=== PATIENT | male | born 1980 | race Caucasian/White ===

== ENCOUNTER 2017-01-13 02:38 | Emergency (ER) | payer OTHER, MEDICARE, MEDICAID ==
[~2017-01-13] VITALS: Ht 172.7 cm; Wt 68.0 kg
[~2017-01-13 02:38] MED LIST: BPR100T GT; CYCL10TA9 PO; IBUP800T26 PO
--- NOTE | 2017-01-13 02:59 | ED Back Pain ---
General Chief Complaint: Back Problems Stated Complaint: BACK PAIN Nursing Triage Note: LOWER BACK PAIN, NO NEW INJURY. 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 Other Comments PCP: DR. RODRÍGUEZ Allergies and Home Medications Allergies Coded Allergies: No Known Drug Allergies (Unverified , 04/03/10) Home Medications Bupropion Hcl 100 Mg Tab, 100 MG GT, (Reported) Cyclobenzaprine HCl 10 Mg Tablet, 10 MG PO Q8H, #15 Prescribed by: ALLYSON BARBOSA on 01/13/17 0300 Cyclobenzaprine Hcl 10 Mg Tablet, 1 EACH PO Q8H PRN for SPASMS, #14 Prescribed by: AASHISH OTTO on 12/25/14 0706 Ibuprofen 800 Mg Tablet, 800 MG PO q8h PRN for PAIN, #30 Ref 0 Prescribed by: AASHISH OTTO on 12/25/14 0706 Naproxen 500 Mg Tablet, 500 MG PO BID, #20 Prescribed by: ALLYSON BARBOSA on 01/13/17 0300 Constitutional: no symptoms reported Musculoskeletal: see HPI, back pain Skin: no symptoms reported Psychiatric/Neurological: No Symptoms Reported Past Basjbfn-Vqhnyd-Powgym Hx Patient Social History Alcohol Use: Occasionally Uses Recreational Drug Use: No Smoking Status: Never a Smoker 2nd Hand Smoke Exposure: No Recent Foreign Travel: No Contact w/Someone Who Travel: No Recent Infectious Disease Expo: No Recent Hopitalizations: No Immunizations Up To Date Tetanus Booster (TDap): Unknown PED Vaccines UTD: Yes Seasonal Allergies Seasonal Allergies: No Surgeries HX Surgeries: Yes (PENIS SURGERY A CHILD) Respiratory Hx Respiratory Disorders: No Cardiovascular Hx Cardiac Disorders: Yes (MURMUR A CHILD) Neurological Hx Neurological Disorders: No Genitourinary Hx Genitourinary Disorders: No Gastrointestinal Hx Gastrointestinal Disorders: No Musculoskeletal Hx Musculoskeletal Disorders: Yes Musculoskeletal Disorders: Chronic Back Pain Endocrine Hx Endocrine Disorders: No HEENT HX ENT Disorders: No Cancer Hx Cancer: No Psychosocial Hx 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 PT ABLE TO TWIST AT WAIST WITHOUT DIFFICULTY ) Neck: Full Range of Motion, Normal Inspection, Non Tender, Supple Cardiovascular: Regular Rate, Rhythm, No Edema, No JVD, No Murmur, Normal Peripheral Pulses Respiratory: Normal Breath Sounds Peripheral Pulses: 2+ Dorsalis Pedis (R), 2+ Left Dors-Pedis (L) Gastrointestinal: Non Tender, Soft Back: Other (DIFFUSE LUMBAR TENDERNESS--MILD, WITH MILD MUSCLE SPASMS. DTR'S INTACT. NEGATIVE STRAIGHT LEG RAISING BILATERALLY) Extremity: Normal Range of Motion, Non Tender, No Calf Tenderness, No Pedal Edema Neurologic/Psychiatric: Alert, Oriented x3, No Motor/Sensory Deficits, Normal Mood/Affect, gum machine filler II-XII Norm as Tested Skin: Normal Color, Warm/Dry Progress/Results/Core Measures Results/Orders My Orders Orders - ALLYSON BARBOSA DO Ketorolac Injection (Toradol Injection) (01/13/17 03:00) Orphenadrine Injection (Norflex Injectio (01/13/17 03:00) Diphenhydramine Injection (Benadryl Inje (01/13/17 03:00) Medications Given in ED Current Medications Medications Dose Ordered Sig/Ric Route Start Time Stop Time Status Last Admin Dose Admin Diphenhydramine HCl 50 mg ONCE ONCE IM 01/13/17 03:00 01/13/17 03:02 DC 01/13/17 02:53 50 MG Ketorolac Tromethamine 60 mg ONCE ONCE IM 01/13/17 03:00 01/13/17 03:02 DC 01/13/17 02:53 60 MG Orphenadrine Citrate 60 mg ONCE ONCE IM 01/13/17 03:00 01/13/17 03:02 DC 01/13/17 02:53 60 MG Vital Signs/I&O Vital Sign - Last 12Hours 01/13/17 02:43 Temp 97.7 Pulse 84 Resp 16 B/P (MAP) 156/94 Pulse Ox 95 O2 Delivery Room Air Blood Pressure Mean: 114 Progress Note : Progress Note PAIN BEGINNING TO EASE AT DISMISSAL PT RESIDES AT [place] AND 2 [employer] ARE HERE WITH PT MULTIPLE ATTEMPTS WITH DIFFERENT NUMBERS, TO CONTACT THE [facility] WERE UNSUCCESSFUL, IN ORDER TO DETERMINE IF THIS WOULD BE FILED UNDER WORKMAN'S COMP. PT WAS ALSO UNABLE TO CONTACT ANY ONE AT THE [facility], AND NO ONE FROM THE [facility] CALLED ABOUT PT. Departure Impression Impression: Primary Impression: Low back strain Disposition: HOME, SELF-CARE Condition: Stable Departure-Patient Inst. Referrals: JONO RODRÍGUEZ MD (PCP/Family) Primary Care Physician Patient Instructions: Lumbar Muscle Strain (DC) Add. Discharge Instructions: MOIST HEAT TO AREA AT 20 MINUTE INTERVALS FOLLOW UP WITH OCCUPATIONAL HEALTH/ WORKMAN'S COMP OR DR. RODRÍGUEZ ON SATURDAY FOR FURTHER CARE All discharge instructions reviewed with patient and/or family. Voiced understanding. Scripts Naproxen (Naproxen) 500 Mg Tablet 500 MG PO BID, #20 TAB Prov: ALLYSON BARBOSA DO 01/13/17 Cyclobenzaprine HCl (Cyclobenzaprine HCl) 10 Mg Tablet 10 MG PO Q8H, #15 TAB Prov: ALLYSON BARBOSA DO 01/13/17 Work/School Note: Work Release Form Date Seen in the Emergency Department: Jan 13, 2017 Restrictions: Need Release from Doctor, Follow Up With [facility] ALLYSON BARBOSA DO Jan 13, 2017 02:59
[2017-01-13] MEDS ORDERED: KETOROLAC 60 MG/2 ML VIAL IM ONE (03:00)
[2017-01-13] MEDS ORDERED: NAPR500T3 PO (03:00)
[2017-01-13] MEDS ORDERED: CYCL10TA9 PO (03:00)
[2017-01-13] MEDS ORDERED: ORPHENADRINE 60 MG/2 ML (NORFLEX) AMP IM ONE (03:00)
[2017-01-13] MEDS ORDERED: diphenhydrAMINE 50 MG/ML INJ (BENADRYL) IM ONE (03:00)
[2017-01-13 03:39] VITALS: BP 156/94
--- OUTSIDE RECORDS SUMMARY | 2017-01-14 18:00 | XMS REPORT ---
Author Author CHANELL RODRIGUEZ Organization [employer] Address Unknown Phone Unavailable Care Team Providers Care Airline Mechanic Name Role Phone CHANELL RODRIGUEZ CP Unavailable Allergies, Adverse Reactions, Alerts Substance Reaction Event Type N.K.D.A. 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 Medications Medication Code System Code Instructions Start Date End Date Status Dosage Omeprazole [facility] [address]-43 20 mg Jun 08, 2014 1 Capsule by Oral route 1 time per day 1 hr prior to 1st meal, for GERD Lisinopril NDC [address]-67 10 mg Jun 08, 2014 1 Tablet by Oral route 1 time per day for HTN Budeprion XL NDC 0 150 mg 1 ERT orally once a day Jun 08, 2014 1 tablet 1 time per day upon rising in AM for depression [place] [address]-24 2 % February 02, 2014 apply to right knee rash twice daily until resolved Procedures Procedure Coding System Code Date PROPHYLAXIS - ADULT CPT-4 D1110 May 16, 2015 Vital Signs Date/Time: May 16, 2015 Blood Pressure Diastolic 70 mmHg Blood Pressure Systolic 120 mmHg Cardiac Monitoring Heart Rate 61 bpm Results No Known Results Summary Purpose [employer] Submission
--- OUTSIDE RECORDS SUMMARY | 2017-01-14 18:00 | XMS REPORT ---
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
--- OUTSIDE RECORDS SUMMARY | 2017-01-14 18:00 | XMS REPORT ---
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
--- OUTSIDE RECORDS SUMMARY | 2017-01-14 18:00 | XMS REPORT ---
Author Author AKIN BURROUGHS Organization [employer] Address Unknown Phone Unavailable Care Team Providers Care Solar Installation Supervisor Name Role Phone AKIN BURROUGHS CP Unavailable Allergies, Adverse Reactions, Alerts Substance Reaction Event Type N.K.D.A. 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
--- OUTSIDE RECORDS SUMMARY | 2017-01-14 18:00 | XMS REPORT ---
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 Medications No Known Medications Procedures Procedure Coding System Code Date INTRAORL-PERIAPICAL 1 FILM 50880 CPT-4 D0220 January 26, 2016 INTRAORL-PERIAPICAL EA ADD FILM CPT-4 D0230 January 26, 2016 COMP ORAL EVALUATION - NEW/EST PT CPT-4 D0150 January 26, 2016 BITEWINGS - FOUR FILMS CPT-4 D0274 January 26, 2016 INTRAORL-PERIAPICAL EA ADD FILM CPT-4 D0230 January 26, 2016 INTRAORL-PERIAPICAL EA ADD FILM CPT-4 D0230 January 26, 2016 INTRAORL-PERIAPICAL EA ADD FILM CPT-4 D0230 January 26, 2016 INTRAORL-PERIAPICAL EA ADD FILM CPT-4 D0230 January 26, 2016 Results No Known Results Summary Purpose [employer] Submission
--- OUTSIDE RECORDS SUMMARY | 2017-01-14 18:01 | XMS REPORT | Continuity of Care Document ---
Author Author [facility] Address Unknown Phone Unavailable Allergies Active Description Code Type Severity Reaction Onset Reported/Identified Relationship to Patient Clinical Status Yes No Known Drug Allergies [id number] Drug Allergy Unknown N/ A 04/03/2010 Medications Problems Date Dx Coded Attending Type Code Diagnosis Diagnosed By 04/04/2010 Ot 789.00 06/27/2010 311 DEPRESSIVE DISORDER NOS 06/27/2010 314.00 ADHD INATTENTIVE 06/27/2010 311 DEPRESSIVE DISORDER NOS 06/27/2010 314.00 ADHD INATTENTIVE 06/27/2010 311 DEPRESSIVE DISORDER NOS 06/27/2010 314.00 ADHD INATTENTIVE 06/27/2010 311 DEPRESSIVE DISORDER NOS 06/27/2010 314.00 ADHD INATTENTIVE 06/27/2010 311 DEPRESSIVE DISORDER NOS 06/27/2010 314.00 ADHD INATTENTIVE 06/27/2010 311 DEPRESSIVE DISORDER NOS 06/27/2010 314.00 ADHD INATTENTIVE 06/27/2010 311 DEPRESSIVE DISORDER NOS 06/27/2010 314.00 ADHD INATTENTIVE 06/27/2010 311 DEPRESSIVE DISORDER NOS 06/27/2010 314.00 ADHD INATTENTIVE 06/27/2010 ARTUR PHD, REN A 311 DEPRESSIVE DISORDER NOS 06/27/2010 ARTUR PHD, REN A 314.00 ADHD INATTENTIVE 06/27/2010 SERGIO TIAN APRN 311 DEPRESSIVE DISORDER NOS 06/27/2010 SERGIO TIAN APRN 314.00 ADHD INATTENTIVE 06/27/2010 EVELINA ANGUIANO APRN 311 DEPRESSIVE DISORDER NOS 06/27/2010 EVELINA ANGUIANO APRN 314.00 ADHD INATTENTIVE 06/27/2010 EVELINA ANGUIANO APRN 311 DEPRESSIVE DISORDER NOS 06/27/2010 EVELINA ANGUIANO APRN 314.00 ADHD INATTENTIVE 06/27/2010 EVELINA ANGUIANO APRN 311 DEPRESSIVE DISORDER NOS 06/27/2010 EVELINA ANGUIANO APRN 314.00 ADHD INATTENTIVE 06/27/2010 EVELINA ANGUIANO APRN 311 DEPRESSIVE DISORDER NOS 06/27/2010 EVELINA ANGUIANO APRN 314.00 ADHD INATTENTIVE 06/27/2010 311 DEPRESSIVE DISORDER NOS 06/27/2010 314.00 ADHD INATTENTIVE 07/25/2010 314.01 ADHD COMBINED 07/25/2010 314.01 ADHD COMBINED 07/25/2010 314.01 ADHD COMBINED 07/25/2010 314.01 ADHD COMBINED 07/25/2010 314.01 ADHD COMBINED 07/25/2010 314.01 ADHD COMBINED 07/25/2010 314.01 ADHD COMBINED 07/25/2010 314.01 ADHD COMBINED 07/25/2010 ARTUR CARLOS, REN Sanchez 314.01 ADHD COMBINED 07/25/2010 SERGIO TIAN APRN 314.01 ADHD COMBINED 07/25/2010 EVELINA ANGUIANO APRN 314.01 ADHD COMBINED 07/25/2010 EVELINA ANGUIANO APRN 314.01 ADHD COMBINED 07/25/2010 EVELINA ANGUIANO APRN 314.01 ADHD COMBINED 07/25/2010 EVELINA ANGUIANO APRN 314.01 ADHD COMBINED 07/25/2010 314.01 ADHD COMBINED 10/04/2010 309.0 ADJUSTMENT DISORDER WITH DEPRESSED MOOD 10/04/2010 309.0 ADJUSTMENT DISORDER WITH DEPRESSED MOOD 10/04/2010 309.0 ADJUSTMENT DISORDER WITH DEPRESSED MOOD 10/04/2010 309.0 ADJUSTMENT DISORDER WITH DEPRESSED MOOD 10/04/2010 309.0 ADJUSTMENT DISORDER WITH DEPRESSED MOOD 10/04/2010 309.0 ADJUSTMENT DISORDER WITH DEPRESSED MOOD 10/04/2010 309.0 ADJUSTMENT DISORDER WITH DEPRESSED MOOD 10/04/2010 309.0 ADJUSTMENT DISORDER WITH DEPRESSED MOOD 10/04/2010 ARTUR CARLOS, REN Sanchez 309.0 ADJUSTMENT DISORDER WITH DEPRESSED MOOD 10/04/2010 SERGIO TIAN APRN 309.0 ADJUSTMENT DISORDER WITH DEPRESSED MOOD 10/04/2010 EVELINA ANGUIANO APRN 309.0 ADJUSTMENT DISORDER WITH DEPRESSED MOOD 10/04/2010 EVELINA ANGUIANO APRN 309.0 ADJUSTMENT DISORDER WITH DEPRESSED MOOD 10/04/2010 EVELINA ANGUIANO APRN 309.0 ADJUSTMENT DISORDER WITH DEPRESSED MOOD 10/04/2010 EVELINA ANGUIANO APRN 309.0 ADJUSTMENT DISORDER WITH DEPRESSED MOOD 10/04/2010 309.0 ADJUSTMENT DISORDER WITH DEPRESSED MOOD 07/28/2013 SERGIO TIAN APRN 317 MENTAL RETARDATION-MILD 07/28/2013 EVELINA ANGUIANO APRN 317 MENTAL RETARDATION-MILD 07/28/2013 EVELINA ANGUIANO APRN 317 MENTAL RETARDATION-MILD 07/28/2013 EVELINA ANGUIANO APRN 317 MENTAL RETARDATION-MILD 07/28/2013 EVELINA ANGUIANO APRN 317 MENTAL RETARDATION-MILD 03/14/2014 CIERA CERON, SARAH Sanchez Ot 536.8 STOMACH FUNCTION DIS NEC 03/14/2014 SARAH VANG MD Ot 786.50 CHEST PAIN NOS 12/25/2014 AASHISH OTTO MD Ot 723.1 CERVICALGIA 12/25/2014 AASHISH OTTO MD Ot 724.4 LUMBOSACRAL NEURITIS NOS 12/29/2014 ANSELMO FLOREZ RUMA Sanchez Ot 959.7 12/29/2014 ANSELMO FLOREZ RUMA Sanchez Ot E000.8 12/29/2014 ANSELMO FLOREZ RUMA Sanchez Ot E849.0 12/29/2014 ANSELMO FLOREZ RUMA Sanchez Ot E927.0 01/17/2015 ANNE CERON, JONO Lowe Ot 719.06 01/17/2015 ANNE CERON, JONO Lowe Ot 719.46 01/26/2015 ANNE CERON, JONO Lowe Ot 719.06 01/26/2015 ANNE CERON, JONO Lowe Ot 719.46 01/31/2016 ANSELMO FLOREZ RUMA Sanchez Ot 959.7 LOWER LEG INJURY NOS 01/31/2016 RUMA BRIONES DO Ot E000.8 OTHER EXTERNAL CAUSE STATUS 01/31/2016 ANSELMO FLOREZ RUMA Sanchez Ot E849.0 ACCIDENT IN HOME 01/31/2016 ANSELMO FLOREZ RUMA Sanchez Ot E927.0 OVEREXERTION FROM SUDDEN STRENUOUS MOVEM 01/31/2016 ANNE CERON, JONO Lowe Ot 719.06 JOINT EFFUSION-L/LEG 01/31/2016 ANNE CERON, JONO Lowe Ot 719.46 JOINT PAIN-L/LEG 01/31/2016 PRUDENCE TOLENTINO Ot M25.561 PAIN IN RIGHT KNEE 02/20/2016 ANSELMO FLOREZ RUMA Sanchez Ot 959.7 LOWER LEG INJURY NOS 02/20/2016 ANSELMO FLOREZ RUMA Sanchez Ot E000.8 OTHER EXTERNAL CAUSE STATUS 02/20/2016 RUMA BRIONES DO Ot E849.0 ACCIDENT IN HOME 02/20/2016 RUMA BRIONES DO Ot E927.0 OVEREXERTION FROM SUDDEN STRENUOUS MOVEM 02/20/2016 ANNE CERON, JONO L Ot 719.06 JOINT EFFUSION-L/LEG 02/20/2016 ANNE CERON, JONO L Ot 719.46 JOINT PAIN-L/LEG 02/20/2016 PRUDENCE TOLENTINO HONING MACHINE OPERATOR SEMIAUTOMATIC Ot M25.561 PAIN IN RIGHT KNEE 03/09/2016 PRUDENCE TOLENTINO HONING MACHINE OPERATOR SEMIAUTOMATIC Ot M25.561 PAIN IN RIGHT KNEE 03/12/2016 PRUDENCE TOLENTINO HONING MACHINE OPERATOR SEMIAUTOMATIC Ot M25.561 PAIN IN RIGHT KNEE 03/13/2016 PRUDENCE TOLENTINO HONING MACHINE OPERATOR SEMIAUTOMATIC Ot S69.91XA UNSP INJURY OF RIGHT WRIST, HAND AND FIN 03/13/2016 PRUDENCE TOLENTINO HONING MACHINE OPERATOR SEMIAUTOMATIC Ot X58.XXXA EXPOSURE TO OTHER SPECIFIED FACTORS, INI 03/13/2016 PRUDENCE TOLENTINO HONING MACHINE OPERATOR SEMIAUTOMATIC Ot Y93.64 ACTIVITY, BASEBALL 03/13/2016 PRUDENCE TOLENTINO HONING MACHINE OPERATOR SEMIAUTOMATIC Ot Y99.8 OTHER EXTERNAL CAUSE STATUS 03/27/2016 PRUDENCE TOLENTINO HONING MACHINE OPERATOR SEMIAUTOMATIC Ot S69.91XA UNSP INJURY OF RIGHT WRIST, HAND AND FIN 03/27/2016 PRUDENCE TOLENTINO HONING MACHINE OPERATOR SEMIAUTOMATIC Ot X58.XXXA EXPOSURE TO OTHER SPECIFIED FACTORS, INI 03/27/2016 PRUDENCE TOLENTINO HONING MACHINE OPERATOR SEMIAUTOMATIC Ot Y93.64 ACTIVITY, BASEBALL 03/27/2016 PRUDENCE TOLENTINO HONING MACHINE OPERATOR SEMIAUTOMATIC Ot Y99.8 OTHER EXTERNAL CAUSE STATUS 05/05/2016 RUMA BRIONES DO Ot 959.7 LOWER LEG INJURY NOS 05/05/2016 RUMA BRIONES DO Ot E000.8 OTHER EXTERNAL CAUSE STATUS 05/05/2016 RUMA BRIONES DO Ot E849.0 ACCIDENT IN HOME 05/05/2016 RUMA BRIONES DO Ot E927.0 OVEREXERTION FROM SUDDEN STRENUOUS MOVEM 05/05/2016 ANNE CERON, JONO L Ot 719.06 JOINT EFFUSION-L/LEG 05/05/2016 ANNE CERON, JONO L Ot 719.46 JOINT PAIN-L/LEG 05/05/2016 PRUDENCE TOLENTINO HONING MACHINE OPERATOR SEMIAUTOMATIC Ot M25.561 PAIN IN RIGHT KNEE 05/05/2016 PRUDENCE TOLENTINO HONING MACHINE OPERATOR SEMIAUTOMATIC Ot S69.91XA UNSP INJURY OF RIGHT WRIST, HAND AND FIN 05/05/2016 PRUDENCE TOLENTINO HONING MACHINE OPERATOR SEMIAUTOMATIC Ot X58.XXXA EXPOSURE TO OTHER SPECIFIED FACTORS, INI 05/05/2016 PRUDENCE TOLENTINO HONING MACHINE OPERATOR SEMIAUTOMATIC Ot Y93.64 ACTIVITY, BASEBALL 05/05/2016 PRUDENCE TOLENTINO HONING MACHINE OPERATOR SEMIAUTOMATIC Ot Y99.8 OTHER EXTERNAL CAUSE STATUS 05/07/2016 JONO RODRÍGUEZ MD L Ot M25.561 PAIN IN RIGHT KNEE 05/07/2016 JNOO RODRÍGUEZ MD L Ot X58.XXXA EXPOSURE TO OTHER SPECIFIED FACTORS, INI 05/07/2016 JONO RODRÍGUEZ MD L Ot Y93.61 ACTIVITY, ANGOLAN TACKLE FOOTBALL 05/07/2016 JONO RODRÍGUEZ MD L Ot Y99.8 OTHER EXTERNAL CAUSE STATUS 05/09/2016 JONO RODRÍGUEZ MD L Ot M25.561 PAIN IN RIGHT KNEE 05/09/2016 JONO RODRÍGUEZ MD L Ot X58.XXXA EXPOSURE TO OTHER SPECIFIED FACTORS, INI 05/09/2016 JONO RODRÍGUEZ MD L Ot Y93.61 ACTIVITY, ANGOLAN [employer] FOOTBALL 05/09/2016 JONO RODRÍGUEZ MD L Ot Y99.8 OTHER EXTERNAL CAUSE STATUS 05/28/2016 JONO RODRÍGUEZ MD L Ot M25.561 PAIN IN RIGHT KNEE 05/28/2016 JONO RODRÍGUEZ MD L Ot X58.XXXA EXPOSURE TO OTHER SPECIFIED FACTORS, INI 05/28/2016 JONO RODRÍGUEZ MD L Ot Y93.61 ACTIVITY, ANGOLAN TACKLE FOOTBALL 05/28/2016 JONO RODRÍGUEZ MD L Ot Y99.8 OTHER EXTERNAL CAUSE STATUS 06/06/2016 JONO RODRÍGUEZ MD L Ot M25.561 PAIN IN RIGHT KNEE 06/06/2016 JONO RODRÍGUEZ MD L Ot X58.XXXA EXPOSURE TO OTHER SPECIFIED FACTORS, INI 06/06/2016 JONO RODRÍGUEZ MD L Ot Y93.61 ACTIVITY, ANGOLAN TACKLE FOOTBALL 06/06/2016 JONO RODRÍGUEZ MD L Ot Y99.8 OTHER EXTERNAL CAUSE STATUS Procedures Code [place] [address] INDIV PSYTX 45/50 MIN 06/19/2012 55446 PSYTX PT&/FAMILY 45 MINUTES 08/01/2012 22435 PSYTX PT&/FAMILY 45 MINUTES 08/29/2012 56592 PSYTX PT&/FAMILY 45 MINUTES 09/26/2012 77647 PSYTX PT&/FAMILY 45 MINUTES 11/06/2012 06990 PSYTX PT&/FAMILY 45 MINUTES 11/26/2012 66491 PSYTX PT&/FAMILY 45 MINUTES 12/17/2012 57286 PSYTX PT&/FAMILY 45 MINUTES 01/08/2013 89095 PSYTX PT&/FAMILY 45 MINUTES 02/05/2013 Results Encounters ACCT No. Visit Date/Time Discharge Status Pt. Type Provider Facility Loc./Unit Complaint [id number] 09/16/2014 08:32:00 09/16/2014 23: 59:59 CLS Outpatient EVELINA ANGUIANO APRN [id number] 06/08/2014 10:11:00 06/08/2014 23: 59:59 CLS Outpatient EVELINA ANGUIANO APRN [id number] 02/02/2014 08:56:00 02/02/2014 23: 59:59 CLS Outpatient EVELINA ANGUIANO APRN [id number] 02/02/2014 08:56:00 02/02/2014 23: 59:59 CLS Outpatient EVELINA ANGUIANO APRN [id number] 07/28/2013 08:58:00 07/28/2013 23: 59:59 CLS Outpatient SERGIO TIAN APRN [id number] 02/04/2013 12:55:00 02/04/2013 23: 59:59 CLS Outpatient ARTUR CARLOS, REN Sanchez [id number] 09/25/2012 09:40:00 09/25/2012 23: 59:59 CLS Outpatient [id number] 08/28/2012 08:56:00 08/28/2012 23: 59:59 CLS Outpatient [id number] 07/30/2012 09:15:00 07/30/2012 23: 59:59 CLS Outpatient [id number] 06/19/2012 08:50:00 06/19/2012 23: 59:59 CLS Outpatient [id number] 06/19/2012 08:50:00 06/19/2012 23:59 :59 CLS Outpatient [id number] 01/07/2013 09:54:00 Document Registration [id number] 12/16/2012 08:36:00 Document Registration [id number] 11/25/2012 12:53:00 Document Registration [id number] 11/05/2012 09:56:00 Document Registration
== END 2017-01-13 03:40 | disposition home or self-care (01) ==
LOC: EDUNIT# 02:38 → ER 02:40
DX: S39.012A Strain of muscle, fascia and tendon of lower back, initial encounter (principal); F70 Mild intellectual disabilities; F90.9 Attention-deficit hyperactivity disorder, unspecified type; X50.9XXA Other and unspecified overexertion or strenuous movements or postures, initial encounter; Y93.G1 Activity, food preparation and clean up; Y92.59 Other trade areas as the place of occurrence of the external cause; Y99.0 Civilian activity done for income or pay
CPT/HCPCS: 99283

== ENCOUNTER → 2017-07-31 | Outpatient (CLI) | payer MEDICARE, MEDICAID ==
[~2017-07-31] MED LIST changes: +NAPR500T4 PO
--- NOTE | 2017-07-31 14:46 | Diagnostic Imaging Report ---
INDICATION: Right wrist pain. TECHNIQUE: Three views of the right wrist were obtained. FINDINGS: The alignment of the wrist is normal. There is no fracture or dislocation. The soft tissues are unremarkable. IMPRESSION: No acute fracture or dislocation. Dictated by: Dictated on workstation # [id number]
== END ==
LOC: RAD 14:34
PROVIDERS: ATTEND Family Medicine
DX: M25.531 Pain in right wrist (principal)
CPT/HCPCS: 73110

== ENCOUNTER 2018-05-31 00:49 | Emergency (ER) | payer MEDICARE, MEDICAID ==
[~2018-05-31] VITALS: Ht 172.7 cm; Wt 65.8 kg
[~2018-05-31 00:49] MED LIST changes: +NAPR-915 PO; -NAPR500T4 PO
--- OUTSIDE RECORDS SUMMARY | 2018-05-31 00:55 | XMS REPORT ---
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 [id number] ALLERGIES No Known Allergies ENCOUNTERS Encounter Location Date Diagnosis [facility] [id number] [place] [address] [id number] Oct, Encounter for dental exam and cleaning w/o abnormal findings Z01.20 [facility] [id number] [place] [id number] -8531 Sep, Viral illness B34.9 [facility] [id number] [place] [address] [id number] Mar, Encounter for dental examination and cleaning without abnormal findings Z01.20 [facility] [id number] [place] [address] [id number] Dec, Encounter for dental examination and cleaning without abnormal findings Z01.20 [facility] [address] [id number] [id number] Dec, Dental examination Z01.20 [facility] [id number] [place] [address] [id number] Apr, Encounter for dental examination and cleaning without abnormal findings Z01.20 [facility] [address] [id number] [id number] Mar, Dental examination Z01.20 [facility] [address] [id number] [id number] Jan, Dental examination Z01.20 [facility] [id number] [place] [address] [id number] Jan, Encounter for dental examination and cleaning without abnormal findings Z01.20 [facility] [address] [place] [address] [id number] [place] [id number] Apr, Encounter for dental examination Z01.20 [facility] [address] [place] [address] [id number] [place] [id number] Mar, Dental examination V72.2 [facility] [address] [id number] [place] [id number] Feb, Dental examination V72.2 [facility] [address] [id number] [place] [id number] Jan, Dental examination V72.2 [facility] [address] [id number] [place] [id number] Dec, Dental examination V72.2 [facility] [place] [facility] [address] [id number] [place] [address] Oct, [facility] [address] [id number] [place] [address] 1783 Oct, [facility] [address] [id number] [place] [address] 29[address] Sep, [facility] [address] [facility] [id number] [place] [address] Sep, [facility] [address] [id number] [place] [address] 59[address] Aug, [facility] [address] [id number] [place] [address] 1776 Aug, [facility] [address] [id number] [place] [address] May, [facility] [address] [id number] [place] [address] 2496 May, [facility] [address] [facility] [id number] [place] [address] 25[address] May, [facility] [address] [id number] [place] [address] 74[address] May, [facility] [place] [facility] [address] [id number] [place] [address] 00[address] Apr, [facility] [place] [facility] [address] [id number] [place] [address]- 6826 14 Apr, 2014 [facility] [place] [facility] [address] [id number] [place] [address]- 4928 Jan, [facility] [place] [facility] [address] [id number] [place] [address]- 9313 Jan, [facility] [place] [facility] [address] [id number] [place] [address]- 2096 Jan, [facility] [place] [facility] [address] [id number] [place] [address]- 4543 Jan, [facility] [place] [facility] [address] [id number] [place] [address]- 5857 Jul, [facility] [place] [facility] [address] [id number] [place] [address] 8920 Jul, [facility] [place] [facility] [address] [id number] [place] [address]- 7829 May, [facility] [place] [facility] [address] [id number] [place] [address]- 0946 May, [facility] [place] [facility] [address] [id number] [place] [address]- 3666 Feb, [facility] [place] [facility] [address] [id number] [place] [address]- 3309 Jan, [facility] [place] [facility] [address] [id number] [place] [address]- 2413 Dec, [facility] [place] [facility] [address] [id number] [place] [address]- 5836 November, [facility] [place] [facility] [address] [id number] [place] [address]- 1548 November, [facility] [place] [facility] [address] [id number] [place] [address]- 1844 07 Nov, 2012 [facility] [place] [facility] [address] [id number] [place] [address]- 1349 Oct, [facility] [place] [facility] [address] [id number] [place] [address]- 0723 16 Oct, 2012 [facility] [place] [facility] [address] [id number] [place] [address]- 4004 Sep, [facility] [place] [facility] [address] [id number] [place] [address]- 1851 Aug, [facility] [place] [facility] [address] [id number] [place] [address]- 2105 Jul, [facility] [place] [facility] [address] [id number] [place] [address]- 2188 May, [facility] [place] [facility] [address] [id number] [place] [address]- 7981 May, [facility] [place] [facility] [address] [id number] [place] [address]- 0874 May, [facility] [place] [facility] [address] [id number] [place] [address]- 1336 May, [facility] [place] [facility] [address] [id number] [place] [address]- 8736 Apr, [facility] [place] [facility] [address] [id number] [place] [address]- 0605 Apr, [facility] [place] [facility] [address] [id number] [place] [address] Apr, [facility] [place] [facility] [address] [id number] [place] [address]- 5644 Apr, [facility] [place] [facility] [address] [id number] [place] [address]- 7850 Apr, [facility] [place] [facility] [address] [id number] [place] [address]- 3346 Mar, [facility] [address] [id number] [place] [address]- 2880 Feb, [facility] [place] [facility] [address] [id number] [place] [address]- 2866 Jan, [facility] [place] [facility] [address] [id number] [place] [address]- 6502 Dec, [facility] [place] [facility] [address] [id number] [place] [address]- 1654 Dec, [facility] [place] [facility] [address] [id number] [place] [address]- 1154 November, [facility] [place] [facility] [address] [id number] [place] [address]- 1356 November, [facility] [place] [facility] [address] [id number] [place] [address] Oct, [facility] [place] [facility] [address] [id number] [place] [address]- 1644 16 Oct, 2011 [facility] [place] [facility] [address] [id number] [place] [address]- 8999 Oct, [facility] [place] [facility] [address] [id number] [place] [address]- 6182 Sep, [facility] [place] [facility] [address] [id number] [place] [address]- 9448 Sep, [facility] [place] [facility] [address] [id number] [place] [address]- 4681 Aug, [facility] [place] [facility] [address] [id number] [place] [address]- 3618 Jul, [facility] [place] [facility] [address] [id number] [place] [address]- 4969 Jul, [facility] [place] [facility] [address] [id number] [place] [address]- 4296 May, [facility] [place] [facility] [address] [facility] [id number] [place] [address]- 0783 May, [facility] [address] [facility] [id number] [place] [address] 8043 Apr, IMMUNIZATIONS No Known Immunizations SOCIAL HISTORY Never Assessed REASON FOR VISIT ADULT OUTREACH [facility] PLAN [facility] CARE Activity Details Follow Up 3 Months Reason:ON SITE RECALL VITAL SIGNS MEDICATIONS Medication Instructions Dosage Frequency Start Date End Date Duration Status Lisinopril 10 mg 1 Tablet by Oral route 1 time per day for HTN May, Not-Taking Bactroban Nasal 2 % apply to right knee rash twice daily until resolved Jan, Active Wellbutrin XL 150 MG TAKE 1 TABLET BY MOUTH ONCE DAILY UPON RISING IN THE MORNING Active Omeprazole 20 mg 1 Capsule by Oral route 1 time per day 1 hr prior to 1st meal, for GERD May, Active Budeprion XL 150 mg 1 tablet 1 time per day upon rising in AM for depression and ADD May, Not-Taking RESULTS No Results PROCEDURES Procedure Date Ordered Result Body Site PROPHYLAXIS - ADULT October 31, 2017 INSTRUCTIONS MEDICATIONS ADMINISTERED No Known Medications MEDICAL (GENERAL) HISTORY Type Description Date Medical History High Blood Pressure Medical History Back Trouble Medical History Heart Murmur Medical History Mild MR Medical History ADD Medical History Depression
--- OUTSIDE RECORDS SUMMARY | 2018-05-31 00:56 | XMS REPORT ---
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 [id number] ALLERGIES No Known Allergies ENCOUNTERS Encounter Location Date Diagnosis [facility] [id number] [place] [address] [id number] Oct, Encounter for dental exam and cleaning w/o abnormal findings Z01.20 [facility] [id number] [place] [address] 317891 -3711 Sep, Viral illness B34.9 [facility] [id number] [place] [address] [id number] Mar, Encounter for dental examination and cleaning without abnormal findings Z01.20 [facility] [id number] [place] [address] [id number] Dec, Encounter for dental examination and cleaning without abnormal findings Z01.20 [facility] [address] [id number] [id number] Dec, Dental examination Z01.20 [facility] [id number] [place] [address] [id number] Apr, [facility] dental examination and cleaning without abnormal findings [facility] [address] [id number][place] [id number] Mar, Dental examination Z01.20 [facility] [address] [id number][place] [id number] Jan, Dental examination Z01.20 [facility] [address] [place] [address] [id number] Jan, Encounter for dental examination and cleaning without abnormal findings Z01.20 [facility] [address] [id number] [id number] Apr, Encounter for dental examination Z01.20 [facility] [address] [id number][place] [id number] Mar, Dental examination V72.2 [facility] [address] [id number][place] [id number] Feb, Dental examination V72.2 [facility] [address] [id number][place] [id number] Jan, Dental examination V72.2 [facility] [address] [id number][place] [id number] Dec, Dental examination V72.2 [facility] [address] [id number], [place] [address]- 2546 Oct, [facility] [address] [id number] [place] [address]- 2573 Oct, [facility] [address] [id number], [place] [address]- 8515 Sep, [facility] [address] [facility] [id number] [address] Sep, [facility] [address] [id number], [place] [address]- 0492 Aug, [facility] [address] [id number], [place] [address]- 6026 Aug, [facility] [address] [id number], [place] [address]- 3473 May, [facility] [address] [id number], [place] [address]- 6116 May, [facility] [address] [facility] [id number], [place] [address]- 2546 May, [facility] [address] [id number] [place] [address]- 1068 May, [facility] [place] [facility] [address] [id number] [place] [address]- 9025 Apr, [facility] [place] [facility] [address] [id number] [place] [address]- 1969 14 Apr, 2014 [facility] [place] [facility] [address] [id number] [place] [address]- 0127 Jan, [facility] [place] [facility] [address] [id number] [place] [address]- 0704 Jan, [facility] [place] [facility] [address] [id number] [place] [address]- 2668 Jan, [facility] [place] [facility] [address] [id number] [place] [address]- 7277 Jan, [facility] [place] [facility] [address] [id number] [place] [address]- 3590 Jul, [facility] [place] [facility] [address] [id number] [place] [address]- 1878 Jul, [facility] [place] [facility] [address] [id number] [place] [address]- 0631 May, [facility] [place] [facility] [address] [id number] [place] [address]- 1326 May, [facility] [place] [facility] [address] [id number] [place] [address]- 9638 Feb, [facility] [place] [facility] [address] [id number] [place] [address]- 4122 Jan, [facility] [place] [facility] [address] [id number] [place] [address]- 5372 Dec, [facility] [place] [facility] [address] [id number] [place] [address]- 8756 November, [facility] [place] [facility] [address] [id number] [place] [address]- 7993 November, [facility] [place] [facility] [address] [id number] [place] [address]- 8833 07 Nov, 2012 [facility] [place] [facility] [address] [id number] [place] [address]- 9596 Oct, [facility] [place] [facility] [address] [id number] [place] [address]- 6122 16 Oct, 2012 [facility] [place] [facility] [address] [id number] [place] [address]- 1010 Sep, [facility] [place] [facility] [address] [id number] [place] [address]- 8988 Aug, [facility] [place] [facility] [address] [id number] [place] [address]- 2481 Jul, [facility] [place] [facility] [address] [id number] [place] [address]- 0476 May, [facility] [place] [facility] [address] [id number] [place] [address]- 6145 May, [facility] [place] [facility] [address] [id number] [place] [address]- 2234 May, [facility] [place] [facility] [address] [id number] [place] [address]- 1801 May, [facility] [place] [facility] [address] [id number] [place] [address]- 8645 Apr, [facility] [place] [facility] [address] [id number] [place] [address]- 2964 Apr, [facility] [place] [facility] [address] [id number] [place] 0099 Apr, [facility] [place] [facility] [address] [id number] [place] [address]- 3157 Apr, [facility] [place] [facility] [address] [id number] [place] [address]- 7011 Apr, [facility] [place] [facility] [address] [id number] [place] [address]- 7866 Mar, [facility] [address] [id number] [place] [address]- 6337 Feb, [facility] [place] [facility] [address] [id number] [place] [address]- 2296 Jan, [facility] [place] [facility] [address] [id number] [place] [address]- 7612 Dec, [facility] [place] [facility] [address] [id number] [place] [address]- 8132 Dec, [facility] [place] [facility] [address] [id number] [place] [address]- 1553 November, [facility] [place] [facility] [address] [id number] [place] [address]- 8876 November, [facility] [place] [facility] [address] [id number] [place] [address]- 9470 Oct, [facility] [place] [facility] [address] [id number] [place] [address]- 2409 16 Oct, 2011 [facility] [place] [facility] [address] [id number] [place] [address]- 0130 Oct, [facility] [place] [facility] [address] [id number] [place] [address]- 4643 Sep, [facility] [place] [facility] [address] [id number] [place] [address]- 6751 Sep, [facility] [place] [facility] [address] [id number] [place] [address]- 5118 Aug, [facility] [place] [facility] [address] [id number] [place] [address]- 2541 Jul, [facility] [place] [facility] [address] [id number] [place] [address]- 8725 Jul, [facility] [place] [facility] [address] [id number] [place] [address]- 5871 May, [facility] [place] [facility] [address] [facility] [id number] [place] [address]- 9515 May, [facility] [place] [address] [facility] [id number] [place] [address]- 6382 Apr, IMMUNIZATIONS No Known Immunizations SOCIAL HISTORY Never Assessed REASON FOR VISIT ADULT OUTREACH [facility] PLAN OF CARE Activity Details Follow Up 3 Months Reason:ON SITE RECALL VITAL SIGNS MEDICATIONS Medication Instructions Dosage Frequency Start Date End Date Duration Status Budeprion XL 150 mg 1 tablet 1 time per day upon rising in AM for depression and ADD May, Active RESULTS No Results PROCEDURES Procedure Date Ordered Result Body Site PROPHYLAXIS - ADULT Mar 29, 2017 TOPICAL FLUORIDE VARNISH Mar 29, 2017 INSTRUCTIONS MEDICATIONS ADMINISTERED No Known Medications MEDICAL (GENERAL) HISTORY Type Description Date Medical History High Blood Pressure Medical History Back Trouble Medical History Heart Murmur Medical History Mild MR Medical History ADD Medical History Depression
--- OUTSIDE RECORDS SUMMARY | 2018-05-31 00:56 | XMS REPORT ---
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 [id number] [place] [address]12- [address]30 Oct, [facility] [id number] [place] [address] 37242 -8520 Sep, Viral illness B34.9 [facility] [id number] [place] [address] [id number] Mar, Encounter for dental examination and cleaning without abnormal findings Z01.20 [facility] [id number] [place] [address] [id number] Dec, Encounter for dental examination and cleaning without abnormal findings Z01.20 [facility] [address] [place] [address] AVE [id number] [id number] Dec, Dental examination Z01.20 [facility] [id number] [place] [address] [id number] Apr, Encounter for dental examination and cleaning without abnormal findings Z01.20 [facility] [address] [facility] [address] [id number] [id number] Mar, Dental examination Z01.20 [address] [facility] [id number] [place] [address] [id number] Jan, Dental examination Z01.20 [facility] [id number] [place] [address] [id number] Jan, Encounter for dental examination and cleaning without abnormal findings Z01.20 [facility] [address] [id number] [id number] Apr, Encounter for dental examination Z01.20 [facility] [address] [id number] [id number] Mar, Dental examination V72.2 [facility] [address] [id number][place] [id number] Feb, Dental examination V72.2 [facility] [address] [id number] [id number] Jan, Dental examination V72.2 [facility] [address] [id number] [id number] Dec, Dental examination V72.2 [facility] [address] [id number], [place] [address] Oct, [facility] [address] [id number] [address] 25[address] Oct, [facility] [address] [id number] [address] 64[address] Sep, [facility] [address] [id number] [address] 4[address] Sep, [facility] [address] [id number] [address] 89[address] Aug, [facility] [address] [id number] [address] 25[address] Aug, [facility] [address] [id number] [address] 25[address] May, [facility] [address] [id number] [address] 2546 May, [facility] [address] [facility] [id number] [address] May, [facility] [address] [id number] [place] [address]- 2546 May, [facility] [address] [id number] [place] [address] 0900 Apr, [facility] [place] [facility] [address] [id number] [place] [address]- 2546 Apr, [facility] [address] [id number] [place] [address]- 0029 Jan, [facility] [place] [facility] [address] [id number] [place] [address]- 0926 Jan, [facility] [address] [id number] [place] [address]- 8207 Jan, [facility] [place] [facility] [address] [id number] [place] [address]- 2526 Jan, [facility] [address] [id number] [place] [address]- 6094 Jul, [facility] [address] [id number] [place] [address]- 6013 Jul, [facility] [place] [facility] [address] [id number] [place] [address]- 0336 May, [facility] [address] [id number] [place] [address]- 1046 May, [facility] [place] [facility] [address] [id number] [place] [address]- 2546 Feb, [facility] [place] [facility] [address] [id number] [place] [address]- 2546 Jan, [facility] [place] [facility] [address] [id number] [place] [address]- 2546 Dec, [facility] [place] [facility] [address] [id number] [place] [address]- 2546 November, [facility] [place] [facility] [address] [id number] [place] [address]- 6546 November, [facility] [place] [facility] [address] [id number] [place] [address]- 1284 November, [facility] [place] [facility] [address] [id number] [place] [address]- 6164 Oct, [facility] [place] [facility] [address] [id number] [place] [address]- 3372 Oct, [facility] [place] [facility] [address] [id number] [place] [address]- 5106 Sep, [facility] [place] [facility] [address] [id number] [place] [address]- 7903 Aug, [facility] [place] [facility] [address] [id number] [place] [address]- 2906 Jul, [facility] [place] [facility] [address] [id number] [place] [address]- 9113 May, [facility] [place] [facility] [address] [id number] [place] [address]- 3556 May, [facility] [place] [facility] [address] [id number] [place] [address]- 0947 May, [facility] [place] [facility] [address] [id number] [place] [address]- 7701 May, [facility] [place] [facility] [address] [id number] [place] [address]- 5229 Apr, [facility] [place] [facility] [address] [id number], [place] [address]- 1354 Apr, [facility] [place] [facility] [address] [id number] [place] [address]- 8091 Apr, [facility] [place] [facility] [address] [id number] [place] [address]- 9289 Apr, [facility] [place] [facility] [address] [id number] [place] [address]- 7678 Apr, [facility] [place] [facility] [address] [id number] [place] [address]- 6365 04 Mar, 2012 [facility] [address] [id number] [place] [address]- 0061 Feb, [facility] [place] [facility] [address] [id number] [place] [address]- 1562 10 Jan, 2012 [facility] [address] [id number] [place] [address]- 2486 Dec, [facility] [place] [facility] [address] [id number] [place] [address]- 0170 Dec, [facility] [address] [id number] [place] [address]- 9610 November, [facility] [place] [facility] [address] [id number] [place] [address]- 9246 November, [facility] [address] [id number] [place] [address]- 7137 Oct, [facility] [place] [facility] [address] [id number] [place] [address]- 8408 16 Oct, 2011 [facility] [address] [id number] [place] [address]- 5044 Oct, [facility] [place] [facility] [address] [id number] [place] [address]- 5260 Sep, [facility] [place] [facility] [address] [id number] [place] [address]- 5551 Sep, [facility] [place] [facility] [address] [id number] [place] [address]- 8184 Aug, [facility] [place] [facility] [address] [id number] [place] [address]- 6225 Jul, [facility] [place] [facility] [address] [id number] [place] [address]- 1756 Jul, [facility] [place] [facility] [address] [id number] [place] [address]- 8903 May, [facility] [place] [facility] [address] [facility] [id number] [place] [address] May, [facility] [address] [facility] [id number], [place] [address]- [address]294 Apr, IMMUNIZATIONS No Known Immunizations SOCIAL HISTORY Never Assessed REASON FOR VISIT PLAN OF CARE Activity Details Follow Up prn Reason:recare VITAL SIGNS MEDICATIONS Unknown Medications RESULTS No Results PROCEDURES Procedure Date Ordered Result Body Site PERIODIC ORAL EXAMINATION January 08, 2017 INTRAORL-PERIAPICAL 1 FILM 76736 January 08, 2017 BITEWINGS - FOUR FILMS January 08, 2017 INSTRUCTIONS MEDICATIONS ADMINISTERED No Known Medications MEDICAL (GENERAL) HISTORY Type Description Date Medical History High Blood Pressure Medical History Back Trouble Medical History Heart Murmur Medical History Mild MR Medical History ADD Medical History Depression
--- OUTSIDE RECORDS SUMMARY | 2018-05-31 00:56 | XMS REPORT ---
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 Active [id number] ALLERGIES No Known Allergies ENCOUNTERS Encounter Location Date Diagnosis [facility] [id number] [place] [address] Oct, [facility] [id number] [place] [address] 19644 [address]8516 Sep, Viral illness B34.9 [facility] [id number] [place] [address] [id number] Mar, Encounter for dental examination and cleaning without abnormal findings Z01.20 [facility] [id number] [place] [address] [id number] Dec, Encounter for dental examination and cleaning without abnormal findings Z01.20 [facility] [address] [facility] [facility] [address] [id number] [id number] Dec, Dental examination Z01.20 [facility] [id number] [place] [address] [id number] Apr, Encounter for dental examination and cleaning without abnormal findings Z01.20 [facility] [address] [id number][place] [id number] Mar, Dental examination Z01.20 [facility] [address] [id number][place] [id number] Jan, Dental examination Z01.20 [facility] [id number] [place] [address] [id number] Jan, Encounter for dental examination and cleaning without abnormal findings Z01.20 [facility] [address] [id number][place] [id number] Apr, Encounter for dental examination Z01.20 [facility] [address] [id number][place] [id number] Mar, Dental examination V72.2 [facility] [address] [id number][place] [id number] Feb, Dental examination V72.2 [facility] [address] [id number][place] [id number] Jan, Dental examination V72.2 [facility] [address] [id number] [place] [address] [id number] Dec, Dental examination V72.2 [facility] [address] [id number] [address]- 2546 Oct, [facility] [address] [id number] [place] [address] 11018- 4863 Oct, [facility] [address] [id number], [place] [address]- 3709 Sep, [facility] [address] [id number][place] [address] Sep, [facility] [address] [id number], [place] [address]- 5899 Aug, [facility] [address] [id number], [place] [address]- 4586 Aug, [facility] [address] [id number], [place] [address]- 4246 May, [facility] [address] [id number], [place] [address]- 2596 May, [facility] [address] [id number], [place] [address]- 2546 May, [facility] [address] [id number], [place] [address]- 7005 May, [facility] [place] [facility] [address] [id number] [place] [address]- 8768 Apr, [facility] [place] [facility] [address] [id number] [place] [address]- 6028 Apr, [facility] [place] [facility] [address] [id number] [place] [address]- 6062 Jan, [facility] [place] [facility] [address] [id number] [place] [address]- 8919 Jan, [facility] [place] [facility] [address] [id number] [place] [address]- 6088 Jan, [facility] [place] [facility] [address] [id number] [place] [address]- 4153 Jan, [facility] [place] [facility] [address] [id number] [place] [address]- 2343 Jul, [facility] [place] [facility] [address] [id number] [place] [address]- 1064 Jul, [facility] [place] [facility] [address] [id number] [place] [address]- 3564 May, [facility] [place] [facility] [address] [id number] [place] [address]- 4234 May, [facility] [place] [facility] [address] [id number] [place] [address]- 0535 Feb, [facility] [place] [facility] [address] [id number] [place] [address]- 9413 Jan, [facility] [place] [facility] [address] [id number] [place] [address]- 1318 Dec, [facility] [place] [facility] [address] [id number] [place] [address]- 2180 November, [facility] [place] [facility] [address] [id number] [place] [address]- 7920 November, [facility] [place] [facility] [address] [id number] [place] [address]- 2133 07 Nov, 2012 [facility] [place] [facility] [address] [id number] [place] [address]- 9914 17 Oct, 2012 [facility] [place] [facility] [address] [id number] [place] [address]- 1618 16 Oct, 2012 [facility] [place] [facility] [address] [id number] [place] [address]- 2715 Sep, [facility] [place] [facility] [address] [id number] [place] [address]- 6416 07 Aug, 2012 [facility] [place] [facility] [address] [id number] [place] [address]- 9258 Jul, [facility] [place] [facility] [address] [id number] [place] [address]- 2950 30 May, 2012 [facility] [place] [facility] [address] [id number] [place] [address]- 1359 30 May, 2012 [facility] [place] [facility] [address] [id number] [place] [address]- 5628 May, [facility] [place] [facility] [address] [id number] [place] [address]- 9667 29 May, 2012 [facility] [place] [facility] [address] [facility] [id number] [place] [address]- 6811 Apr, [facility] [place] [facility] [address] [id number] [place] [address]- 8201 16 Apr, 2012 [facility] [place] [facility] [address] [id number] [place] [address]- 6404 15 Apr, 2012 [facility] [place] [facility] [address] [id number] [place] [address]- 4156 Apr, [facility] [place] [facility] [address] [id number] [place] [address]- 8280 02 Apr, 2012 [facility] [place] [facility] [address] [id number], [place] [address]- 9401 04 Mar, 2012 [facility] [place] [facility] [address] [id number] [place] [address]- 4856 Feb, [facility] [address] [id number] [place] [address]- 7027 Jan, [facility] [place] [facility] [address] [id number] [place] [address]- 2511 Dec, [facility] [place] [facility] [address] [id number] [place] [address]- 1426 Dec, [facility] [address] [id number] [place] [address]- 5360 November, [facility] [place] [facility] [address] [id number] [place] [address]- 7188 November, [facility] [address] [id number] [place] [address]- 0541 Oct, [facility] [address] [id number] [place] [address]- 6326 Oct, [facility] [address] [id number] [place] [address]- 8945 Oct, [facility] [address] [id number] [place] [address]- 7114 Sep, [facility] [place] [facility] [address] [id number] [place] [address]- 9154 Sep, [facility] [place] [facility] [address] [id number] [place] [address]- 4206 Aug, [facility] [place] [facility] [address] [id number] [place] [address]- 7824 Jul, [facility] [place] [facility] [address] [id number] [place] [address]- 9873 Jul, [facility] [place] [facility] [address] [id number] [place] [address]- 9449 May, [facility] [place] [facility] [address] [id number] [place] [address]- 2973 May, [facility] [address] [facility] [id number] [place] [address]- 0664 Apr, IMMUNIZATIONS No Known Immunizations SOCIAL HISTORY Never Assessed REASON FOR VISIT ADULT OUTREACH [facility] PLAN OF CARE Activity Details Follow Up 3 Months Reason:ON SITE RECALL VITAL SIGNS MEDICATIONS Medication Instructions Dosage Frequency Start Date End Date Duration Status Budeprion XL 150 mg 1 tablet 1 time per day upon rising in AM for depression and ADD May, Active RESULTS No Results PROCEDURES Procedure Date Ordered Result Body Site PROPHYLAXIS - ADULT January 08, 2017 INSTRUCTIONS MEDICATIONS ADMINISTERED No Known Medications MEDICAL (GENERAL) HISTORY Type Description Date Medical History High Blood Pressure Medical History Back Trouble Medical History Heart Murmur Medical History Mild MR Medical History ADD Medical History Depression
--- OUTSIDE RECORDS SUMMARY | 2018-05-31 00:57 | XMS REPORT | Continuity of Care Document ---
Author Author [facility] Organization [facility] Address Unknown Phone Unavailable Allergies Active Description Code Type Severity Reaction Onset Reported/Identified Relationship to Patient Clinical Status Yes NO KNOWN DRUG ALLERGIES UNKNOWN NO KNOWN DRUG ALLERG Yes No Known Drug Allergies [id number] Drug Allergy Unknown N/A 04/03/2010 Medications There is no data. Problems Date Dx Coded Attending Type Code [...] EVELINA ANGUIANO APRN 317 MENTAL RETARDATION-MILD 07/28/2013 ANNMARIE KRAFTEVELINA Garsia 317 MENTAL RETARDATION-MILD 07/28/2013 ANNMARIE GOLDMAN EVELINA J 317 MENTAL RETARDATION-MILD 07/28/2013 EVELINA ANGUIANO APRN 317 MENTAL RETARDATION-MILD 03/14/2014 CIERA CERON, SARAH Sanchez Ot 536.8 STOMACH FUNCTION DIS NEC 03/14/2014 SARAH VANG MD Ot 786.50 CHEST PAIN NOS 12/25/2014 CLARITA CERON, AASHISH Grande Ot 723.1 CERVICALGIA 12/25/2014 AASHISH OTTO MD Ot 724.4 LUMBOSACRAL NEURITIS NOS 12/29/2014 ANSELMO FLOREZ RUMA Laura Ot 959.7 12/29/2014 ANSELMO FLOREZ RUMA Laura Ot E000.8 12/29/2014 ANSELMO FLOREZ RUMA Laura Ot E849.0 12/29/2014 ANSELMO FLOREZ RUMA Sanchez Ot E927.0 01/17/2015 ANNE CERON, JONO Lowe Ot 719.06 01/17/2015 ANNE CERON, JONO Lowe Ot 719.46 01/26/2015 ANNE CERON, JONO Lowe Ot 719.06 01/26/2015 ANNE CERON, JONO Lowe Ot 719.46 01/31/2016 ANSELMO FLOREZ RUMA Laura Ot 959.7 LOWER LEG INJURY NOS 01/31/2016 ANSELMO FLOREZ RUMA Sanchez Ot E000.8 OTHER EXTERNAL CAUSE STATUS 01/31/2016 ANSELMO FLOREZ RUMA Sanchez Ot E849.0 ACCIDENT IN HOME 01/31/2016 ANSELMO FLOREZ RUMA Sanchez Ot E927.0 OVEREXERTION FROM SUDDEN STRENUOUS MOVEM 01/31/2016 ANNE CERON, JONO Lowe Ot 719.06 JOINT EFFUSION-L/LEG 01/31/2016 ANNE CERON, JONO Lowe Ot 719.46 JOINT PAIN-L/LEG 01/31/2016 PRUDENCE LOZANO Ot M25.561 PAIN IN RIGHT KNEE 02/20/2016 ANSELMO FLOREZRUMA Ot 959.7 LOWER LEG INJURY NOS 02/20/2016 RUMA BRIONES DO Ot E000.8 OTHER EXTERNAL CAUSE STATUS 02/20/2016 RUMA BRIONES DO Ot E849.0 ACCIDENT IN HOME 02/20/2016 RUMA BRIONES DO Ot E927.0 OVEREXERTION FROM SUDDEN STRENUOUS MOVEM 02/20/2016 ANNE CERON, JONO Lowe Ot 719.06 JOINT EFFUSION-L/LEG 02/20/2016 ANNE CERON, JONO Lowe Ot 719.46 JOINT PAIN-L/LEG 02/20/2016 PRUDENCE LOZANO REDEYE GUNNER Ot M25.561 PAIN IN RIGHT KNEE 03/09/2016 PRUDENCE LOZANO REDEYE GUNNER Ot M25.561 PAIN IN RIGHT KNEE 03/12/2016 PRUDENCE LOZANO REDEYE GUNNER Ot M25.561 PAIN IN RIGHT KNEE 03/13/2016 PRUDENCE LOZANO REDEYE GUNNER Ot S69.91XA UNSP INJURY OF RIGHT WRIST, HAND AND FIN 03/13/2016 PRUDENCE LOZANO REDEYE GUNNER Ot X58.XXXA EXPOSURE TO OTHER SPECIFIED FACTORS, INI 03/13/2016 PRUDENCE LOZANO REDEYE GUNNER Ot Y93.64 ACTIVITY, BASEBALL 03/13/2016 PRUDENCE LOZANO REDEYE GUNNER Ot Y99.8 OTHER EXTERNAL CAUSE STATUS 03/27/2016 PRUDENCE LOZANO REDEYE GUNNER Ot S69.91XA UNSP INJURY OF RIGHT WRIST, HAND AND FIN 03/27/2016 PRUDENCE LOZANO REDEYE GUNNER Ot X58.XXXA EXPOSURE TO OTHER SPECIFIED FACTORS, INI 03/27/2016 PRUDENCE LOZANO REDEYE GUNNER Ot Y93.64 ACTIVITY, BASEBALL 03/27/2016 PRUDENCE LOZANO REDEYE GUNNER Ot Y99.8 OTHER EXTERNAL CAUSE STATUS 05/05/2016 RUMA BRIONES DO Ot 959.7 LOWER LEG INJURY NOS 05/05/2016 RUMA BRIONES DO Ot E000.8 OTHER EXTERNAL CAUSE STATUS 05/05/2016 RUMA BRIONES DO Ot E849.0 ACCIDENT IN HOME 05/05/2016 RUMA BRIONES DO Ot E927.0 OVEREXERTION FROM SUDDEN STRENUOUS MOVEM 05/05/2016 ANNE CERON, JONO Lowe Ot 719.06 JOINT EFFUSION-L/LEG 05/05/2016 ANNE CERON, JONO Lowe Ot 719.46 JOINT PAIN-L/LEG 05/05/2016 PRUDENCE LOZANO REDEYE GUNNER Ot M25.561 PAIN IN RIGHT KNEE 05/05/2016 PRUDENCE LOZANO REDEYE GUNNER Ot S69.91XA UNSP INJURY OF RIGHT WRIST, HAND AND FIN 05/05/2016 PRUDENCE LOZANO REDEYE GUNNER Ot X58.XXXA EXPOSURE TO OTHER SPECIFIED FACTORS, INI 05/05/2016 PRUDENCE LOZANO REDEYE GUNNER Ot Y93.64 ACTIVITY, BASEBALL 05/05/2016 PRUDENCE LOZANO REDEYE GUNNER Ot Y99.8 OTHER EXTERNAL CAUSE STATUS 05/07/2016 JONO RODRÍGUEZ MD L Ot M25.561 PAIN IN RIGHT KNEE 05/07/2016 JONO RODRÍGUEZ MD L Ot X58.XXXA EXPOSURE TO OTHER SPECIFIED FACTORS, INI 05/07/2016 JONO RODRÍGUEZ MD L Ot Y93.61 ACTIVITY, CYPRIOT TACKLE FOOTBALL 05/07/2016 JONO RODRÍGUEZ MD L Ot Y99.8 OTHER EXTERNAL CAUSE STATUS 05/09/2016 JONO RODRÍGUEZ MD L Ot M25.561 PAIN IN RIGHT KNEE 05/09/2016 JONO RODRÍGUEZ MD L Ot X58.XXXA EXPOSURE TO OTHER SPECIFIED FACTORS, INI 05/09/2016 JONO RODRÍGUEZ MD L Ot Y93.61 ACTIVITY, CYPRIOT TACKLE FOOTBALL 05/09/2016 JONO RODRÍGUEZ MD L Ot Y99.8 OTHER EXTERNAL CAUSE STATUS 05/28/2016 JONO RODRÍGUEZ MD L Ot M25.561 PAIN IN RIGHT KNEE 05/28/2016 JONO RODRÍGUEZ MD L Ot X58.XXXA EXPOSURE TO OTHER SPECIFIED FACTORS, INI 05/28/2016 JONO RODRÍGUEZ MD L Ot Y93.61 ACTIVITY, CYPRIOT TACKLE FOOTBALL 05/28/2016 JONO RODRÍGUEZ MD L Ot Y99.8 OTHER EXTERNAL CAUSE STATUS 06/06/2016 JONO RODRÍGUEZ MD L Ot M25.561 PAIN IN RIGHT KNEE 06/06/2016 JONO RODRÍGUEZ MD L Ot X58.XXXA EXPOSURE TO OTHER SPECIFIED FACTORS, INI 06/06/2016 JONO RODRÍGUEZ MD L Ot Y93.61 ACTIVITY, CYPRIOT TACKLE FOOTBALL 06/06/2016 JONO RODRÍGUEZ MD L Ot Y99.8 OTHER EXTERNAL CAUSE STATUS 01/13/2017 ALLYSON BARBOSA DO Ot F70 MILD INTELLECTUAL DISABILITIES 01/13/2017 FAMILIA DO, ALLYSON K Ot F90.9 ATTENTION-DEFICIT HYPERACTIVITY DISORDER 01/13/2017 FAMILIA FLOREZ, ALLYSON Amezcua Ot S39.012A STRAIN OF MUSCLE, FASCIA AND TENDON OF L 01/13/2017 ALLYSON BARBOSA DO Ot S39.92XA UNSPECIFIED INJURY OF LOWER BACK, INITIA 01/13/2017 ALLYSON BARBOSA DO Ot X50.9XXA OTHER AND UNSPECIFIED OVREXRTN OR STRNOU 01/13/2017 ALLYSON BARBOSA DO Ot Y92.[address] 01/13/2017 ALLYSON BARBOSA DO Ot Y93.G1 ACTIVITY, FOOD PREPARATION AND CLEAN UP 01/13/2017 ALLYSON BARBOSA DO Ot Y99.0 CIVILIAN ACTIVITY DONE FOR INCOME OR PAY 01/13/2017 RUMA BRIONES DO Ot 959.7 LOWER LEG INJURY NOS 01/13/2017 RUMA BRIONES DO Ot E000.8 OTHER EXTERNAL CAUSE STATUS 01/13/2017 RUMA BRIONES DO Ot E849.0 ACCIDENT IN HOME 01/13/2017 RUMA BRIONES DO Ot E927.0 OVEREXERTION FROM SUDDEN STRENUOUS MOVEM 01/13/2017 ANNE CERON, JONO Lowe Ot 719.06 JOINT EFFUSION-L/LEG 01/13/2017 ANNE CERON, JONO Lowe Ot 719.46 JOINT PAIN-L/LEG 01/13/2017 PRUDENCE LOZANO REDEYE GUNNER Ot M25.561 PAIN IN RIGHT KNEE 01/13/2017 PRUDENCE LOZANO REDEYE GUNNER Ot S69.91XA UNSP INJURY OF RIGHT WRIST, HAND AND FIN 01/13/2017 PRUDENCE LOZANO REDEYE GUNNER Ot X58.XXXA EXPOSURE TO OTHER SPECIFIED FACTORS, INI 01/13/2017 PRUDENCE LOZANO REDEYE GUNNER Ot Y93.64 ACTIVITY, BASEBALL 01/13/2017 PRUDENCE LOZANO REDEYE GUNNER Ot Y99.8 OTHER EXTERNAL CAUSE STATUS 01/13/2017 ANNE CERON, JONO Lowe Ot M25.561 PAIN IN RIGHT KNEE 01/13/2017 JONO RODRÍGUEZ MD Ot X58.XXXA EXPOSURE TO OTHER SPECIFIED FACTORS, INI 01/13/2017 JONO RODRÍGUEZ MD Ot Y93.61 ACTIVITY, CYPRIOT TACKLE FOOTBALL 01/13/2017 JONO RODRÍGUEZ MD Ot Y99.8 OTHER EXTERNAL CAUSE STATUS 01/15/2017 FAMILIA FLOREZ, ALLYSON Amezcua Ot F70 MILD INTELLECTUAL DISABILITIES 01/15/2017 ALLYSON BARBOSA DO Ot F90.9 ATTENTION-DEFICIT HYPERACTIVITY DISORDER 01/15/2017 ALLYSON BARBOSA DO Ot S39.012A STRAIN OF MUSCLE, FASCIA AND TENDON OF L 01/15/2017 ALLYSON BARBOSA DO Ot S39.92XA UNSPECIFIED INJURY OF LOWER BACK, INITIA 01/15/2017 ALLYSON BARBOSA DO Ot X50.9XXA OTHER AND UNSPECIFIED OVREXRTN OR STRNOU 01/15/2017 ALLYSON BARBOSA DO Ot Y92.[address] 01/15/2017 ALLYSON BARBOSA DO Ot Y93.G1 ACTIVITY, FOOD PREPARATION AND CLEAN UP 01/15/2017 ALLYSON BARBOSA DO Ot Y99.0 CIVILIAN ACTIVITY DONE FOR INCOME OR PAY 03/18/2017 RUMA BRIONES DO Ot 959.7 LOWER LEG INJURY NOS 03/18/2017 ANSELMO FLOREZ RUMA Laura Ot E000.8 OTHER EXTERNAL CAUSE STATUS 03/18/2017 RUMA BRIONES DO Ot E849.0 ACCIDENT IN HOME 03/18/2017 RUMA BRIONES DO Ot E927.0 OVEREXERTION FROM SUDDEN STRENUOUS MOVEM 03/18/2017 ANNE CERON, JONO Lowe Ot 719.06 JOINT EFFUSION-L/LEG 03/18/2017 ANNE CERON, JONO Lowe Ot 719.46 JOINT PAIN-L/LEG 03/18/2017 PRUDENCE LOZANO REDEYE GUNNER Ot M25.561 PAIN IN RIGHT KNEE 03/18/2017 PRUDENCE LOZANO REDEYE GUNNER Ot S69.91XA UNSP INJURY OF RIGHT WRIST, HAND AND FIN 03/18/2017 PRUDENCE LOZANO REDEYE GUNNER Ot X58.XXXA EXPOSURE TO OTHER SPECIFIED FACTORS, INI 03/18/2017 PRUDENCE LOZANO REDEYE GUNNER Ot Y93.64 ACTIVITY, BASEBALL 03/18/2017 PRUDENCE LOZANO REDEYE GUNNER Ot Y99.8 OTHER EXTERNAL CAUSE STATUS 03/18/2017 JONO RODRÍGUEZ MD Ot M25.561 PAIN IN RIGHT KNEE 03/18/2017 JONO RODRÍGUEZ MD Ot X58.XXXA EXPOSURE TO OTHER SPECIFIED FACTORS, INI 03/18/2017 JONO RODRÍGUEZ MD Ot Y93.61 ACTIVITY, CYPRIOT TACKLE FOOTBALL 03/18/2017 ANNE CERON, JONO L Ot Y99.8 OTHER EXTERNAL CAUSE STATUS 07/31/2017 RUMA BRIONES DO Ot 959.7 LOWER LEG INJURY NOS 07/31/2017 RUMA BRIONES DO Ot E000.8 OTHER EXTERNAL CAUSE STATUS 07/31/2017 RUMA BRIONES DO Ot E849.0 ACCIDENT IN HOME 07/31/2017 RUMA BRIONES DO Ot E927.0 OVEREXERTION FROM SUDDEN STRENUOUS MOVEM 07/31/2017 ANNE CERON, JONO Lowe Ot 719.06 JOINT EFFUSION-L/LEG 07/31/2017 JONO RODRÍGUEZ MD Ot 719.46 JOINT PAIN-L/LEG 07/31/2017 PRUDENCE LOZANO REDEYE GUNNER Ot M25.561 PAIN IN RIGHT KNEE 07/31/2017 PRUDENCE LOZANO REDEYE GUNNER Ot S69.91XA UNSP INJURY OF RIGHT WRIST, HAND AND FIN 07/31/2017 PRUDENCE LOZANO REDEYE GUNNER Ot X58.XXXA EXPOSURE TO OTHER SPECIFIED FACTORS, INI 07/31/2017 PRUDENCE LOZANO REDEYE GUNNER Ot Y93.64 ACTIVITY, BASEBALL 07/31/2017 PRUDENCE LOZANO REDEYE GUNNER Ot Y99.8 OTHER EXTERNAL CAUSE STATUS 07/31/2017 JONO RODRÍGUEZ MD L Ot M25.561 PAIN IN RIGHT KNEE 07/31/2017 JONO RODRÍGUEZ MD Ot X58.XXXA EXPOSURE TO OTHER SPECIFIED FACTORS, INI 07/31/2017 JONO RODRÍGUEZ MD Ot Y93.61 ACTIVITY, CYPRIOT TACKLE FOOTBALL 07/31/2017 JONO RODRÍGUEZ MD Ot Y99.8 OTHER EXTERNAL CAUSE STATUS 08/01/2017 JONO RODRÍGUEZ MD Ot M25.531 PAIN IN RIGHT WRIST 08/20/2017 JONO RODRÍGUEZ MD Ot M25.531 PAIN IN RIGHT WRIST 08/26/2017 JONO RODRÍGUEZ MD Ot M25.531 PAIN IN RIGHT WRIST 10/22/2017 Mary Lozano 465.9 ACUTE UPPER RESPIRATORY INFECTIONS OF UNSPECIFIED SITE 10/22/2017 Mary Lozano J06.9 ACUTE UPPER RESPIRATORY INFECTION, UNSPECIFIED 10/22/2017 Mary Lozano 465.9 ACUTE UPPER RESPIRATORY INFECTIONS OF UNSPECIFIED SITE 10/22/2017 Mary Lozano J06.9 ACUTE UPPER RESPIRATORY INFECTION, UNSPECIFIED 11/26/2017 JONO RODRÍGUEZ A 401.0 MALIGNANT ESSENTIAL HYPERTENSION 11/26/2017 JONO RODRÍGUEZ I10 ESSENTIAL (PRIMARY) HYPERTENSION 11/26/2017 JONO RODRÍGUEZ A 401.0 MALIGNANT ESSENTIAL HYPERTENSION 11/26/2017 JONO RODRÍGUEZ A I10 ESSENTIAL (PRIMARY) HYPERTENSION 11/26/2017 JONO RODRÍGUEZ 401.0 MALIGNANT ESSENTIAL HYPERTENSION 11/26/2017 JONO RODRÍGUEZ I10 ESSENTIAL (PRIMARY) HYPERTENSION 05/31/2018 ANSELMO FLOREZ, RUMA Sanchez Ot 959.7 LOWER LEG INJURY NOS 05/31/2018 RUMA BRIONES DO Ot E000.8 OTHER EXTERNAL CAUSE STATUS 05/31/2018 RUMA BRIONES DO Ot E849.0 ACCIDENT IN HOME 05/31/2018 RUMA BRIONES DO Ot E927.0 OVEREXERTION FROM SUDDEN STRENUOUS MOVEM 05/31/2018 ANNE CERON, JONO L Ot 719.06 JOINT EFFUSION-L/LEG 05/31/2018 JONO RODRÍGUEZ MD L Ot 719.46 JOINT PAIN-L/LEG 05/31/2018 PRUDENCE LOZANO REDEYE GUNNER Ot M25.561 PAIN IN RIGHT KNEE 05/31/2018 PRUDENCE LOZANO REDEYE GUNNER Ot S69.91XA UNSP INJURY OF RIGHT WRIST, HAND AND FIN 05/31/2018 PRUDENCE LOZANO REDEYE GUNNER Ot X58.XXXA EXPOSURE TO OTHER SPECIFIED FACTORS, INI 05/31/2018 PRUDENCE LOZANO REDEYE GUNNER Ot Y93.64 ACTIVITY, BASEBALL 05/31/2018 PRUDENCE LOZANO REDEYE GUNNER Ot Y99.8 OTHER EXTERNAL CAUSE STATUS 05/31/2018 JONO RODRÍGUEZ MD Ot M25.561 PAIN IN RIGHT KNEE 05/31/2018 JONO RODRÍGUEZ MD Ot X58.XXXA EXPOSURE TO OTHER SPECIFIED FACTORS, INI 05/31/2018 JONO RODRÍGUEZ MD Ot Y93.61 ACTIVITY, CYPRIOT TACKLE FOOTBALL 05/31/2018 JONO RODRÍGUEZ MD Ot Y99.8 OTHER EXTERNAL CAUSE STATUS 05/31/2018 JONO RODRÍGUEZ MD Ot M25.531 PAIN IN RIGHT WRIST Procedures Code [place] [address] INDIV PSYTX 45/50 MIN 06/19/2012 40626 PSYTX PT&/FAMILY 45 MINUTES 08/01/2012 68222 PSYTX PT&/FAMILY 45 MINUTES 08/29/2012 36200 PSYTX PT&/FAMILY 45 MINUTES 09/26/2012 89580 PSYTX PT&/FAMILY 45 MINUTES 11/06/2012 81768 PSYTX PT&/FAMILY 45 MINUTES 11/26/2012 00824 PSYTX PT&/FAMILY 45 MINUTES 12/17/2012 37139 PSYTX PT&/FAMILY 45 MINUTES 01/08/2013 13237 PSYTX PT&/FAMILY 45 MINUTES 02/05/2013 Results Test Result Range [facility] - 12/04/16 14:00 Anion Gap 14 6-14 BUN 19 mg/dL 5-25 Calcium 9.9 mg/dL 8.3-10.4 Chloride 105 mmol/L 95-114 CO2 26 mEq/L 22-33 Creat 0.96 mg/dL 0.50-1.50 eGFR 89 mL/min/1.73m2 >59 Glucose 114 mg/dL 70-110 Osmo 294 280-295 Potassium 4.1 mmol/L 3.5-5.3 Sodium 141 mmol/L 134-148 Mycoplasma - 10/22/17 09:45 Mycoplasma Negative Negative Hepatitis Panel (4) - 11/26/17 15:46 HBsAg Screen Negative Negative Hep A Ab, IgM Negative Negative Hep B Core Ab, IgM Negative Negative Hep C Virus Ab <0.1 s/co ratio 0.0-0.9 Lipid Panel - 11/26/17 15:46 C/HDL 5.1 3.7-6.7 Cholesterol 164 mg/dL 100-240 HDL 32 mg/dL 30-85 LDL-Calculated 110 mg/dL 0-100 Trig 110 mg/dL 35-160 VLDL 22 mg/dL 0-42 Hepatitis Panel, Acute - 11/26/17 15:46 Hep A Ab, IgM NEGATIVE NEGATIVE HBsAg Screen NEGATIVE NEGATIVE Hep B Core Ab, IgM NEGATIVE NEGATIVE Hep C Virus Ab <0.1 S/CO RATIO 0.0-0.9 Encounters ACCT No. Visit Date/Time Discharge Status Pt. Type Provider Facility Loc./Unit Complaint [id number] 03/15/2017 09:33:30 03/15/2017 23:59:59 DIS Outpatient GIORGI, BÁRBARA T [facility] RAD XRAY [id number] 11/29/2017 12:22:00 Document Registration [id number] 07/31/2017 14:34:00 07/31/2017 23:59:59 CLS Outpatient JONO RODRÍGUEZ MD [facility] RAD RT WRIST PAIN [id number] 03/26/2017 09:54:00 03/26/2017 23:59:59 CLS Preadmit BÁRBARA RAND MD [facility] REHAB L5-S1 LYTIC SPONDYLOLISTHESIS [id number] 01/13/2017 02:40:00 01/13/2017 03:40:00 DIS Emergency ALLYSON BARBOSA DO [facility] ER BACK PAIN [id number] 05/05/2016 10:21:00 05/05/2016 23:59:59 CLS Outpatient JONO RODRÍGUEZ MD [facility] RAD RT KNEE PAIN/ EFFUSION S/P FOOTBALL INJURY [id number] 02/20/2016 16:01:00 02/20/2016 23:59:59 CLS Outpatient PRDUENCE LOZANO [facility] RAD INJURED R INDEX FINGER PLAYING SOFTBALL [id number] 01/31/2016 13:09:00 01/31/2016 23:59:59 CLS Outpatient PRUDENCE LOZANO [facility] RAD R KNEE PAIN [id number] 12/29/2014 13:29:00 12/29/2014 23:59:59 CLS Outpatient JONO RODRÍGUEZ MD [facility] RAD RT KNEE PAIN AND SWELLING [id number] 12/25/2014 05:31:00 12/25/2014 07:15:00 DIS Emergency AASHISH OTTO MD [facility] ER NECK,L SIDE PAIN [id number] 03/14/2014 01:41:00 03/14/2014 02:44:00 DIS Emergency SARAH VANG MD [facility] ER CHEST PAIN;SOA [id number] 04/21/2013 16:35:00 04/21/2013 23:59:59 CLS Outpatient RUMA BRIONES DO [facility] RAD RT KNEE TWISTED [id number] 05/31/2018 00:52:00 ACT Emergency MIGDALIA CERON, DOMENICA Sauceda [facility] ER CP [id number] 12/29/2014 13:29:00 Document Registration [id number] 11/26/2017 16:51:00 11/26/2017 23:59:00 DIS Outpatient JONO RODRÍGUEZ [id number] 11/26/2017 15:46:00 11/26/2017 23:59:00 DIS Outpatient RODRÍGUEZJONO BORREGO [id number] 10/22/2017 10:47:00 10/22/2017 23:59:00 DIS Outpatient Mary Lozano [id number] 12/04/2016 16:33:00 12/04/2016 23:59:00 DIS Outpatient Mary Lozano [id number] 09/16/2014 08:32:00 09/16/2014 23:59:59 CLS Outpatient EVELINA ANGUIANO APRN [id number] 06/08/2014 10:11:00 06/08/2014 23:59:59 CLS Outpatient EVELINA ANGUIANO APRN [id number] 02/02/2014 08:56:00 02/02/2014 23:59:59 CLS Outpatient EVELINA ANGUIANO APRN [id number] 02/02/2014 08:56:00 02/02/2014 23:59:59 CLS Outpatient EVELINA ANGUIANO APRN [id number] 07/28/2013 08:58:00 07/28/2013 23:59:59 CLS Outpatient SERGIO TIAN APRN [id number] 02/04/2013 12:55:00 02/04/2013 23:59:59 CLS Outpatient REN SIDDIQUI PHD [id number] 09/25/2012 09:40:00 09/25/2012 23:59:59 CLS Outpatient [id number] 08/28/2012 08:56:00 08/28/2012 23:59:59 CLS Outpatient [id number] 07/30/2012 09:15:00 07/30/2012 23:59:59 CLS Outpatient [id number] 06/19/2012 08:50:00 06/19/2012 23:59:59 CLS Outpatient [id number] 06/19/2012 08:50:00 06/19/2012 23:59:59 CLS Outpatient [id number] 01/07/2013 09:54:00 Document Registration [id number] 12/16/2012 08:36:00 Document Registration [id number] 11/25/2012 12:53:00 Document Registration [id number] 11/05/2012 09:56:00 Document Registration [id number] 09/19/2017 16:55:00 09/19/2017 23:59:59 [facility] Outpatient MARELY DUKES APRN [facility]
[2018-05-31] MEDS ORDERED: ANTACID SUSP 30 ML UDC (MYLANTA) PO ONE (01:00)
[2018-05-31] MEDS ORDERED: LIDOCAINE 2% VISCOUS 15 ML UDC PO ONE (01:00)
[2018-05-31 01:22] LABS: BASOPHILS % (AUTO) 0 % (0-10); EOSINOPHILS # (AUTO) 0.1 10^3/uL (0.0-0.3); EOSINOPHILS % (AUTO) 2 % (0-10); HEMATOCRIT 44 % (40-54); HEMOGLOBIN 14.9 G/DL (13.3-17.7); LYMPHOCYTES # (AUTO) 2.9 X 10^3 (1.0-4.0); LYMPHOCYTES % (AUTO) 35 % (12-44); MEAN CORPUSCULAR HEMOGLOBIN 31 PG (25-34); MEAN CORPUSCULAR HGB CONC 34 G/DL (32-36); MEAN CORPUSCULAR VOLUME 92 FL (80-99); MONOCYTES # (AUTO) 0.6 X 10^3 (0.0-1.0); MONOCYTES % (AUTO) 8 % (0-12); NEUTROPHILS # (AUTO) 4.6 X 10^3 (1.8-7.8); NEUTROPHILS % (AUTO) 55 % (42-75); PLATELET COUNT 218 10^3/uL (130-400); RED BLOOD COUNT 4.77 10^6/uL (4.35-5.85); RED CELL DISTRIBUTION WIDTH 13.9 % (10.0-14.5); WHITE BLOOD COUNT 8.3 10^3/uL (4.3-11.0)
[2018-05-31 01:31] LABS: PROTHROMBIN TIME PATIENT 13.4 SEC (12.2-14.7)
[2018-05-31 01:42] LABS: ALANINE AMINOTRANSFERASE 37 U/L (0-55); ALBUMIN 4.9 GM/DL (3.2-4.5); ALKALINE PHOSPHATASE 70 U/L (40-136); BILIRUBIN,TOTAL 0.4 MG/DL (0.1-1.0); BUN/CREATININE RATIO 17; CALCIUM 10.8 MG/DL (8.5-10.1); CARBON DIOXIDE 29 MMOL/L (21-32); CHLORIDE 101 MMOL/L (98-107); CREATININE SERUM 1.13 MG/DL (0.60-1.30); GFR ESTIMATED > 60; GLUCOSE 95 MG/DL (70-105); MAGNESIUM 2.1 MG/DL (1.8-2.4); POTASSIUM 3.7 MMOL/L (3.6-5.0); SODIUM 140 MMOL/L (135-145)
[2018-05-31] MEDS ORDERED: KETOROLAC 30 MG/ML VIAL IVP ONE (01:45)
[2018-05-31 01:49] LABS: MYOGLOBIN SERUM 49.9 NG/ML (10.0-92.0)
[2018-05-31 02:19] LABS: BILIRUBIN,URINE NEGATIVE (NEGATIVE); CLARITY,URINE VERY CLOUDY; COLOR,URINE YELLOW; GLUCOSE, URINE (UA) NEGATIVE (NEGATIVE); KETONES,URINE NEGATIVE (NEGATIVE); LEUKOCYTE ESTERASE ,URINE 1+ (NEGATIVE); NITRITE,URINE NEGATIVE (NEGATIVE); PH,URINE 8 (5-9); PROTEIN,URINE NEGATIVE (NEGATIVE); UROBILINOGEN,URINE NORMAL (NORMAL)
--- NOTE | 2018-05-31 02:29 | ED Chest Pain ---
General Chief Complaint: Chest Pain Stated Complaint: CP Nursing Triage Note: TO ED FROM W/C FROM CAR WITH C/O CP. Nursing Sepsis Screen: No Definite Risk Source: patient Exam Limitations: no limitations History of Present Illness Date Seen by Provider: May 31, 2018 Time Seen by Provider: 00:54 Initial Comments This 37-year-old man presents to the emergency room with complaints of chest pain since 23:30. Pain is pleuritic or atypical in nature. It hurts to move and to breathe. He denies any nausea or vomiting. He took some Tums earlier which did not help. He thought perhaps this was related to acid reflux. He denies any tobacco or any alcohol use over the past few months. He has remote tobacco use history. Allergies and Home Medications Allergies Coded Allergies: No Known Drug Allergies (Unverified , 04/03/10) Home Medications Cyclobenzaprine HCl 10 Mg Tablet, 10 MG PO Q8H Prescribed by: ALLYSON BARBOSA on 01/13/17 0300 Cyclobenzaprine Hcl 10 Mg Tablet, 1 EACH PO Q8H PRN for SPASMS Prescribed by: AASHISH OTTO on 12/25/14 0706 Ibuprofen 800 Mg Tablet, 800 MG PO q8h PRN for PAIN Prescribed by: AASHISH OTTO on 12/25/14 0706 Naproxen 500 Mg Tablet, 500 MG PO BID Prescribed by: ALLYSON BARBOSA on 01/13/17 0300 Patient Home Medication List Home Medication List Reviewed: Yes Review of Systems Review of Systems Constitutional: no symptoms reported EENTM: No Symptoms Reported Respiratory: See HPI Cardiovascular: See HPI Gastrointestinal: No Symptoms Reported Genitourinary: No Symptoms Reported Musculoskeletal: no symptoms reported Skin: no symptoms reported Psychiatric/Neurological: No Symptoms Reported Endocrine: No Symptoms Reported Hematologic/Lymphatic: No Symptoms Reported Past Rnexjws-Dpzhud-Gqrkas Hx Past Med/Social Hx: Reviewed Nursing Past Med/Soc Hx Patient Social History Alcohol Use: Past History Number of Drinks Today: AA Alcohol Beverage of Choice: Beer Recreational Drug Use: No Smoking Status: Former Smoker Type Used: Cigarettes Former Smoker, Quit: Apr 21, 2016 2nd Hand Smoke Exposure: No Recent Foreign Travel: No Contact w/Someone Who Travel: No Recent Infectious Disease Expo: No Recent Hopitalizations: No Immunizations Up To Date Tetanus Booster (TDap): Unknown PED Vaccines UTD: Yes Seasonal Allergies Seasonal Allergies: No Past Medical History Surgeries: Yes ("TOP OF PRIVATE AREA CUT OFF") Respiratory: No Cardiac: Yes Heart Murmur, Hypertension Neurological: No Genitourinary: No Gastrointestinal: No Musculoskeletal: Yes Chronic Back Pain Endocrine: No HEENT: No Cancer: No Psychosocial: Yes (MILD MR) ADD/ADHD, Depression Integumentary: No Blood Disorders: No Physical Exam Vital Signs Vital Signs - First Documented 05/31/18 05/31/18 00:53 02:38 Temp 97.3 Pulse 82 Resp 19 B/P (MAP) 148/92 (110) Pulse Ox 98 O2 Delivery Room Air Capillary Refill : Less Than 3 Seconds Height, Weight, BMI Height: 5'8.00" Weight: 145lbs. oz. 65.049649jp; 22.20 BMI Method:Stated General Appearance: No Apparent Distress, WD/WN HEENT: PERRL/EOMI, Normal ENT Inspection Neck: Normal Inspection Respiratory: Lungs Clear, Normal Breath Sounds, No Accessory Muscle Use, No Respiratory Distress Cardiovascular: Regular Rate, Rhythm, No Edema, No Murmur, Normal Peripheral Pulses Gastrointestinal: Normal Bowel Sounds, Soft, Tenderness (Mild epigastric region ) Extremity: Normal Inspection, No Calf Tenderness, No Pedal Edema, Other ( Negative Rena) Neurologic/Psychiatric: Alert, Oriented x3, No Motor/Sensory Deficits, Normal Mood/Affect, lead medical technologist II-XII Norm as Tested Skin: Normal Color, Warm/Dry Progress/Results/Core Measures Results/Orders Lab Results Laboratory Tests Test 05/31/18 01:00 05/31/18 02:10 Range/Units White Blood Count 8.3 4.3-11.0 10^3/uL Red Blood Count 4.77 4.35-5.85 10^6/uL Hemoglobin 14.9 13.3-17.7 G/DL Hematocrit 44 40-54 % Mean Corpuscular Volume 92 80-99 FL Mean Corpuscular Hemoglobin 31 25-34 PG Mean Corpuscular Hemoglobin Concent 34 32-36 G/DL Red Cell Distribution Width 13.9 10.0-14.5 % Platelet Count 218 130-400 10^3/uL Mean Platelet Volume 12.0 H 7.4-10.4 FL Neutrophils (%) (Auto) 55 42-75 % Lymphocytes (%) (Auto) 35 12-44 % Monocytes (%) (Auto) 8 0-12 % Eosinophils (%) (Auto) 2 0-10 % Basophils (%) (Auto) 0 0-10 % Neutrophils # (Auto) 4.6 1.8-7.8 X 10^3 Lymphocytes # (Auto) 2.9 1.0-4.0 X 10^3 Monocytes # (Auto) 0.6 0.0-1.0 X 10^3 Eosinophils # (Auto) 0.1 0.0-0.3 10^3/uL Basophils # (Auto) 0.0 0.0-0.1 10^3/uL Prothrombin Time 13.4 12.2-14.7 SEC INR Comment 1.0 0.8-1.4 Activated Partial Thromboplast Time 27 24-35 SEC Sodium Level 140 135-145 MMOL/L Potassium Level 3.7 3.6-5.0 MMOL/L Chloride Level 101 98-107 MMOL/L Carbon Dioxide Level 29 21-32 MMOL/L Anion Gap 10 5-14 MMOL/L Blood Urea Nitrogen 19 H 7-18 MG/DL Creatinine 1.13 0.60-1.30 MG/DL Estimat Glomerular Filtration Rate > 60 BUN/Creatinine Ratio 17 Glucose Level 95 70-105 MG/DL Calcium Level 10.8 H 8.5-10.1 MG/DL Corrected Calcium 8.5-10.1 MG/DL Magnesium Level 2.1 1.8-2.4 MG/DL Total Bilirubin 0.4 0.1-1.0 MG/DL Aspartate Amino Transf (AST/SGOT) 27 5-34 U/L Alanine Aminotransferase (ALT/SGPT) 37 0-55 U/L Alkaline Phosphatase 70 40-136 U/L Myoglobin 49.9 10.0-92.0 NG/ML Troponin I < 0.30 <0.30 NG/ML Total Protein 8.0 6.4-8.2 GM/DL Albumin 4.9 H 3.2-4.5 GM/DL Lipase 31 8-78 U/L Urine Color YELLOW Urine Clarity VERY CLOUDY H Urine pH 8 5-9 Urine Specific [place] 1.015 L 1.016-1.022 Urine Protein NEGATIVE NEGATIVE Urine Glucose (UA) NEGATIVE NEGATIVE Urine Ketones NEGATIVE NEGATIVE Urine Nitrite NEGATIVE NEGATIVE Urine Bilirubin NEGATIVE NEGATIVE Urine Urobilinogen NORMAL NORMAL MG/DL Urine Leukocyte Esterase 1+ H NEGATIVE Urine RBC (Auto) NEGATIVE NEGATIVE Urine RBC NONE /HPF Urine WBC RARE /HPF Urine Crystals PRESENT H /LPF Urine Amorphous Sediment LARGE EMMA PHOSPHATE H /LPF Urine Bacteria MODERATE H /HPF Urine Casts NONE /LPF Urine Mucus NEGATIVE /LPF Urine Culture Indicated NO My Orders Orders - DOMENICA NEGRON MD Cbc With Automated Diff (05/31/18 00:59) Magnesium (05/31/18 00:59) Ekg Tracing (05/31/18 00:59) Cardiac Profile 1 (05/31/18 00:59) Comprehensive Metabolic Panel (05/31/18 00:59) Myoglobin Serum (05/31/18 00:59) Protime With Inr (05/31/18 00:59) Partial Thromboplastin Time (05/31/18 00:59) O2 (05/31/18 00:59) Monitor-Rhythm Ecg Trace Only (05/31/18 00:59) Saline Lock/Iv-Start (05/31/18 00:59) Lidocaine 2% Viscous 15 Ml (Xylocaine Vi (05/31/18 01:00) Antacid Suspension (Mylanta Suspension (05/31/18 01:00) Lipase (05/31/18 00:59) Chest Pa/Lat (2 View) (05/31/18 00:59) Ketorolac Injection (Toradol Injection) (05/31/18 01:45) Ua Culture If Indicated (05/31/18 02:12) Medications Given in ED Vital Signs/I&O 05/31/18 05/31/18 05/31/18 00:53 00:53 02:38 Temp 97.3 97.3 Pulse 82 82 Resp 19 19 B/P (MAP) 148/92 (110) 148/92 (110) Pulse Ox 98 O2 Delivery Room Air Room Air Room Air Blood Pressure Mean: 110 Progress Progress Note : Progress Note Cardiopulmonary workup was unremarkable. Patient had no tachycardia, hypoxia, or lower extremity symptoms. A trial of GI cocktail did not relieve his pain. This was followed by Toradol which did improve his pain. Initial ECG Impression Date: May 31, 2018 Initial ECG Impression Time: 00:56 Initial ECG Rate: 88 Initial ECG Rhythm: Normal Sinus Comment Normal sinus rhythm with no ST elevation or depression. No abnormal intervals. LVH by automated read. Diagnostic Imaging Diagonstic Imaging: Xray Plain Films/CT/US/NM/MRI: chest Comments Chest x-ray viewed by me. Report not yet available. No acute abnormalities appreciated. Departure Impression Primary Impression: Atypical chest pain Disposition: 01 HOME, SELF-CARE Condition: Improved Departure-Patient Inst. Referrals: JONO RODRÍGUEZ MD (PCP/Family) Primary Care Physician Patient Instructions: Chest Pain That Is Not Caused by the Heart (DC) Add. Discharge Instructions: For pain you may take ibuprofen up to 600 mg every 6 hours as needed and/or Tylenol (acetaminophen) up to 1000 mg every 6 hours as needed. Take ibuprofen with food or milk to avoid irritation on your stomach. Take an antacid medication such as Pepcid (famotidine) or Prilosec (omeprazole) twice daily for the next couple of weeks. Follow-up with your primary care provider soon as possible. Return to emergency room if symptoms worsen. All discharge instructions reviewed with patient and/or family. Voiced understanding. Copy Copies To 1: JONO RODRÍGUEZ MD, JOSHUA T MD May 31, 2018 02:29
[2018-05-31 02:30] LABS: AMORPHOUS SEDIMENT,UR LARGE AMOR PHOSPHATE /LPF; BACTERIA,URINE MODERATE /HPF; WBC,URINE RARE /HPF
[2018-05-31 02:38] VITALS: BP 148/92
--- NOTE | 2018-05-31 06:45 | Diagnostic Imaging Report ---
INDICATION: Chest pain. TECHNIQUE: Two view chest 02:01 a.m. CORRELATION STUDY: 03/14/2014. FINDINGS: Overall limited depth of inspiration results in some crowding of lung bases. No definitive consolidating infiltrates. Heart size, mediastinum and vasculature overall generally stable given limited depth of inspiration. Visualized osseous structures are unremarkable. IMPRESSION: 1. Generally stable chest demonstrates no acute abnormality. Crowding of lung bases likely owing to hypoventilation. Dictated by: Dictated on workstation # [id number]
== END 2018-05-31 02:39 | disposition home or self-care (01) ==
LOC: EDUNIT# 00:49 → ER 00:52
DX: R07.9 Chest pain, unspecified (principal); F90.9 Attention-deficit hyperactivity disorder, unspecified type; I10 Essential (primary) hypertension; F32.9 Major depressive disorder, single episode, unspecified; Z87.891 Personal history of nicotine dependence
CPT/HCPCS: 36415; 71046; 80053; 81000; 83690; 83735; 83874; 84484; 85025; 85610; 85730; 93005; 93041

== ENCOUNTER 2018-07-07 20:23 | Emergency (ER) | payer MEDICARE, MEDICAID ==
[~2018-07-07] VITALS: Ht 172.7 cm; Wt 65.8 kg
--- OUTSIDE RECORDS SUMMARY | 2018-07-07 20:29 | XMS REPORT | Continuity of Care Document ---
Author Author [facility] Organization [facility] Address Unknown Phone Unavailable Allergies Active Description Code Type Severity Reaction Onset Reported/Identified Relationship to Patient Clinical Status Yes NO KNOWN DRUG ALLERGIES UNKNOWN NO KNOWN DRUG ALLERG Yes No Known Drug Allergies [id number] Drug Allergy Unknown N/A 04/03/2010 Medications There [...] AASHISH Grande Ot 723.1 CERVICALGIA 12/25/2014 AASHISH TOTO MD Ot 724.4 LUMBOSACRAL NEURITIS NOS 12/29/2014 [...] Ot 719.46 JOINT PAIN-L/LEG 02/20/2016 PRUDENCE LOZANO [employer]TERN GRADER Ot M25.561 PAIN IN RIGHT KNEE 03/09/2016 PRUDENCE LOZANO [employer] PATTERN GRADER Ot M25.561 PAIN IN RIGHT KNEE 03/12/2016 PRUDENCE LOZANO [employer] PATTERN GRADER Ot M25.561 PAIN IN RIGHT KNEE 03/13/2016 PRUDENCE LOZANO [employer] PATTERN GRADER Ot S69.91XA UNSP INJURY OF RIGHT WRIST, HAND AND FIN 03/13/2016 PRUDENCE LOZANO F[employer] PATTERN GRADER Ot X58.XXXA EXPOSURE TO OTHER SPECIFIED FACTORS, INI 03/13/2016 PRUDENCE LOZANO [employer] PATTERN GRADER Ot Y93.64 ACTIVITY, BASEBALL 03/13/2016 PRUDENCE LOZANO F[employer] PATTERN GRADER Ot Y99.8 OTHER EXTERNAL CAUSE STATUS 03/27/2016 PRUDENCE LOZANO F[employer] PATTERN GRADER Ot S69.91XA UNSP INJURY OF RIGHT WRIST, HAND AND FIN 03/27/2016 PRUDENCE LOZANO F[employer] PATTERN GRADER Ot X58.XXXA EXPOSURE TO OTHER SPECIFIED FACTORS, INI 03/27/2016 PRUDENCE LOZANO F[employer] PATTERN GRADER Ot Y93.64 ACTIVITY, BASEBALL 03/27/2016 PRUDENCE LOZANO FABRIC PATTERN GRADER Ot Y99.8 OTHER EXTERNAL CAUSE STATUS 05/05/2016 [...] Ot 719.46 JOINT PAIN-L/LEG 05/05/2016 PRUDENCE LOZANO F[employer] PATTERN GRADER Ot M25.561 PAIN IN RIGHT KNEE 05/05/2016 PRUDENCE LOZANO F[employer]IC PATTERN GRADER Ot S69.91XA UNSP INJURY OF RIGHT WRIST, HAND AND FIN 05/05/2016 PRUDENCE LOZANO F[employer] PATTERN GRADER Ot X58.XXXA EXPOSURE TO OTHER SPECIFIED FACTORS, INI 05/05/2016 PRUDENCE LOZANO F[employer] PATTERN GRADER Ot Y93.64 ACTIVITY, BASEBALL 05/05/2016 PRUDENCE LOZANO F[employer] PATTERN GRADER Ot Y99.8 OTHER EXTERNAL CAUSE STATUS 05/07/2016 JONO RODRÍGUEZ MD L Ot M25.561 PAIN IN RIGHT KNEE 05/07/2016 JONO RODRÍGUEZ MD L Ot X58.XXXA EXPOSURE TO OTHER SPECIFIED FACTORS, INI 05/07/2016 JONO RODRÍGUEZ MD L Ot Y93.61 ACTIVITY, AZERBAIJANI TACKLE FOOTBALL 05/07/2016 JONO RODRÍGUEZ MD L Ot Y99.8 OTHER EXTERNAL CAUSE STATUS 05/09/2016 JONO RODRÍGUEZ MD L Ot M25.561 PAIN IN RIGHT KNEE 05/09/2016 JONO RODRÍGUEZ MD L Ot X58.XXXA EXPOSURE TO OTHER SPECIFIED FACTORS, INI 05/09/2016 JONO RODRÍGUEZ MD L Ot Y93.61 ACTIVITY, AZERBAIJANI TACKLE FOOTBALL 05/09/2016 JONO RODRÍGUEZ MD L Ot Y99.8 OTHER EXTERNAL CAUSE STATUS 05/28/2016 JONO RODRÍGUEZ MD L Ot M25.561 PAIN IN RIGHT KNEE 05/28/2016 JONO RODRÍGUEZ MD L Ot X58.XXXA EXPOSURE TO OTHER SPECIFIED FACTORS, INI 05/28/2016 JONO RODRÍGUEZ MD L Ot Y93.61 ACTIVITY, AZERBAIJANI TACKLE FOOTBALL 05/28/2016 JONO RODRÍGUEZ MD L Ot Y99.8 OTHER EXTERNAL CAUSE STATUS 06/06/2016 JONO RODRÍGUEZ MD L Ot M25.561 PAIN IN RIGHT KNEE 06/06/2016 JONO RODRÍGUEZ MD L Ot X58.XXXA EXPOSURE TO OTHER SPECIFIED FACTORS, INI 06/06/2016 JONO RODRÍGUEZ MD L Ot Y93.61 ACTIVITY, AZERBAIJANI TACKLE FOOTBALL 06/06/2016 JONO RODRÍGUEZ MD L [...] Ot 719.46 JOINT PAIN-L/LEG 01/13/2017 PRUDENCE LOZANO F[employer] PATTERN GRADER Ot M25.561 PAIN IN RIGHT KNEE 01/13/2017 PRUDENCE LOZANO F[employer] PATTERN GRADER Ot S69.91XA UNSP INJURY OF RIGHT WRIST, HAND AND FIN 01/13/2017 PRUDENCE LOZANO F[employer]RIC PATTERN GRADER Ot X58.XXXA EXPOSURE TO OTHER SPECIFIED FACTORS, INI 01/13/2017 PRUDENCE LOZANO F[employer] PATTERN GRADER Ot Y93.64 ACTIVITY, BASEBALL 01/13/2017 PRUDENCE LOZANO F[employer]RIC PATTERN GRADER Ot Y99.8 OTHER EXTERNAL CAUSE STATUS 01/13/2017 ANNE CERON, JONO Lowe Ot M25.561 PAIN IN RIGHT KNEE 01/13/2017 JONO RODRÍGUEZ MD Ot X58.XXXA EXPOSURE TO OTHER SPECIFIED FACTORS, INI 01/13/2017 JONO RODRÍGUEZ MD Ot Y93.61 ACTIVITY, AZERBAIJANI TACKLE FOOTBALL 01/13/2017 JONO RODRÍGUEZ MD Ot [...] Ot 719.46 JOINT PAIN-L/LEG 03/18/2017 PRUDENCE LOZANO F[employer] PATTERN GRADER Ot M25.561 PAIN IN RIGHT KNEE 03/18/2017 PRUDENCE LOZANO FABRIC PATTERN GRADER Ot S69.91XA UNSP INJURY OF RIGHT WRIST, HAND AND FIN 03/18/2017 PRUDENCE LOZANO F[employer] PATTERN GRADER Ot X58.XXXA EXPOSURE TO OTHER SPECIFIED FACTORS, INI 03/18/2017 PRUDENCE LOZANO FABRIC PATTERN GRADER Ot Y93.64 ACTIVITY, BASEBALL 03/18/2017 PRUDENCE LOZANO FABRIC PATTERN GRADER Ot Y99.8 OTHER EXTERNAL CAUSE STATUS 03/18/2017 JONO RODRÍGUEZ MD Ot M25.561 PAIN IN RIGHT KNEE 03/18/2017 JONO RODRÍGUEZ MD Ot X58.XXXA EXPOSURE TO OTHER SPECIFIED FACTORS, INI 03/18/2017 JONO RODRÍGUEZ MD Ot Y93.61 ACTIVITY, AZERBAIJANI TACKLE FOOTBALL 03/18/2017 ANNE CERON, JONO L [...] Ot 719.46 JOINT PAIN-L/LEG 07/31/2017 PRUDENCE LOZANO FABR[employer] PATTERN GRADER Ot M25.561 PAIN IN RIGHT KNEE 07/31/2017 PRUDENCE LOZANO FABRIC PATTERN GRADER Ot S69.91XA UNSP INJURY OF RIGHT WRIST, HAND AND FIN 07/31/2017 PRUDENCE LOZANO FABRIC PATTERN GRADER Ot X58.XXXA EXPOSURE TO OTHER SPECIFIED FACTORS, INI 07/31/2017 PRUDENCE LOZANO FABRIC PATTERN GRADER Ot Y93.64 ACTIVITY, BASEBALL 07/31/2017 PRUDENCE LOZANO FABRIC PATTERN GRADER Ot Y99.8 OTHER EXTERNAL CAUSE STATUS 07/31/2017 JONO RODRÍGUEZ MD L Ot M25.561 PAIN IN RIGHT KNEE 07/31/2017 JONO RODRÍGUEZ MD Ot X58.XXXA EXPOSURE TO OTHER SPECIFIED FACTORS, INI 07/31/2017 JONO RODRÍGUEZ MD Ot Y93.61 ACTIVITY, AZERBAIJANI TACKLE FOOTBALL 07/31/2017 JONO RODRÍGUEZ MD Ot [...] Ot 719.46 JOINT PAIN-L/LEG 05/31/2018 PRUDENCE LOZANO FABRIC PATTERN GRADER Ot M25.561 PAIN IN RIGHT KNEE 05/31/2018 PRUDENCE LOZANO FABRIC PATTERN GRADER Ot S69.91XA UNSP INJURY OF RIGHT WRIST, HAND AND FIN 05/31/2018 PRUDENCE LOZANO FABRIC PATTERN GRADER Ot X58.XXXA EXPOSURE TO OTHER SPECIFIED FACTORS, INI 05/31/2018 PRUDENCE LOZANO FABRIC PATTERN GRADER Ot Y93.64 ACTIVITY, BASEBALL 05/31/2018 PRUDENCE LOZANO FABRIC PATTERN GRADER Ot Y99.8 OTHER EXTERNAL CAUSE STATUS 05/31/2018 JONO RODRÍGUEZ MD L Ot M25.561 PAIN IN RIGHT KNEE 05/31/2018 JONO RODRÍGUEZ MD Ot X58.XXXA EXPOSURE TO OTHER SPECIFIED FACTORS, INI 05/31/2018 JONO RODRÍGUEZ MD Ot Y93.61 ACTIVITY, AZERBAIJANI TACKLE FOOTBALL 05/31/2018 JONO RODRÍGUEZ MD Ot Y99.8 OTHER EXTERNAL CAUSE STATUS 05/31/2018 JONO RODRÍGUEZ MD Ot M25.531 PAIN IN RIGHT WRIST 05/31/2018 PRUDENCE LOZANO FABRIC PATTERN GRADER Ot S69.91XA UNSP INJURY OF RIGHT WRIST, HAND AND FIN 05/31/2018 PRUDENCE LOZANO FABRIC PATTERN GRADER Ot X58.XXXA EXPOSURE TO OTHER SPECIFIED FACTORS, INI 05/31/2018 PRUDENCE LOZANO FABRIC PATTERN GRADER Ot Y93.64 ACTIVITY, BASEBALL 05/31/2018 PRUDENCE LOZANO FABRIC PATTERN GRADER Ot Y99.8 OTHER EXTERNAL CAUSE STATUS 05/31/2018 ANNE CERON, JONO L Ot M25.561 PAIN IN RIGHT KNEE 05/31/2018 ANNE CERON, JONO L Ot X58.XXXA EXPOSURE TO OTHER SPECIFIED FACTORS, INI 05/31/2018 ANNE CERON, JONO L Ot Y93.61 ACTIVITY, AZERBAIJANI TACKLE FOOTBALL 05/31/2018 ANNE CERON, JONO L Ot Y99.8 OTHER EXTERNAL CAUSE STATUS 05/31/2018 ANNE CERON, JONO L Ot M25.531 PAIN IN RIGHT WRIST 06/03/2018 MIGDALIA CERON, DOMENICA T Ot F32.9 MAJOR DEPRESSIVE DISORDER, SINGLE EPISOD 06/03/2018 MIGDALIA CERON, DOMENICA T Ot F90.9 ATTENTION-DEFICIT HYPERACTIVITY DISORDER 06/03/2018 MIGDALIA CERON, DOMENICA T Ot I10 ESSENTIAL (PRIMARY) HYPERTENSION 06/03/2018 MIGDALIA CERON, DOMENICA T Ot R07.9 CHEST PAIN, UNSPECIFIED 06/03/2018 MIGDALIA CERON, DOMENICA T Ot Z87.891 PERSONAL HISTORY OF NICOTINE DEPENDENCE Procedures Code [place] [address] INDIV PSYTX 45/50 MIN 06/19/2012 75390 PSYTX PT&/FAMILY 45 MINUTES 08/01/2012 39022 PSYTX PT&/FAMILY 45 MINUTES 08/29/2012 72396 PSYTX PT&/FAMILY 45 MINUTES 09/26/2012 80612 PSYTX PT&/FAMILY 45 MINUTES 11/06/2012 56460 PSYTX PT&/FAMILY 45 MINUTES 11/26/2012 03510 PSYTX PT&/FAMILY 45 MINUTES 12/17/2012 81738 PSYTX PT&/FAMILY 45 MINUTES 01/08/2013 56217 PSYTX PT&/FAMILY 45 MINUTES 02/05/2013 Results Test Result Range BMP - 12/04/16 14:00 Anion Gap 14 6-14 [...] C Virus Ab <0.1 S/CO RATIO 0.0-0.9 Complete blood count (CBC) with automated white blood cell (WBC) differential - 05/31/18 01:00 Blood leukocytes automated count (number/volume) 8.3 10*3/uL 4.3-11.0 Blood erythrocytes automated count (number/volume) 4.77 10*6/uL 4.35-5.85 Venous blood hemoglobin measurement (mass/volume) 14.9 g/dL 13.3-17.7 Blood hematocrit (volume fraction) 44 % 40-54 Automated erythrocyte mean corpuscular volume 92 [foz_us] 80-99 Automated erythrocyte mean corpuscular hemoglobin (mass per erythrocyte) 31 pg 25-34 Automated erythrocyte mean corpuscular hemoglobin concentration measurement ( mass/volume) 34 g/dL 32-36 Automated erythrocyte distribution width ratio 13.9 % 10.0-14.5 Automated blood platelet count (count/volume) 218 10*3/uL 130-400 Automated blood platelet mean volume measurement 12.0 [foz_us] 7.4-10.4 Automated blood neutrophils/100 leukocytes 55 % 42-75 Automated blood lymphocytes/100 leukocytes 35 % 12-44 Blood monocytes/100 leukocytes 8 % 0-12 Automated blood eosinophils/100 leukocytes 2 % 0-10 Automated blood basophils/100 leukocytes 0 % 0-10 Blood neutrophils automated count (number/volume) 4.6 10*3 1.8-7.8 Blood lymphocytes automated count (number/volume) 2.9 10*3 1.0-4.0 Blood monocytes automated count (number/volume) 0.6 10*3 0.0-1.0 Automated eosinophil count 0.1 10*3/uL 0.0-0.3 Automated blood basophil count (count/volume) 0.0 10*3/uL 0.0-0.1 PT panel in platelet poor plasma by coagulation assay - 05/31/18 01:00 Prothrombin time (PT) in platelet poor plasma by coagulation assay 13.4 s 12.2-14.7 INR in platelet poor plasma or blood by coagulation assay 1.0 0.8-1.4 Activated partial thromboplastin time (aPTT) in platelet poor plasma bycoagulation assay - 05/31/18 01:00 Activated partial thromboplastin time (aPTT) in platelet poor plasma bycoagulation assay 27 s 24-35 Comprehensive metabolic panel - 05/31/18 01:00 Serum or plasma sodium measurement (moles/volume) 140 mmol/L 135-145 Serum or plasma potassium measurement (moles/volume) 3.7 mmol/L 3.6-5.0 Serum or plasma chloride measurement (moles/volume) 101 mmol/L 98-107 Carbon dioxide 29 mmol/L 21-32 Serum or plasma anion gap determination (moles/volume) 10 mmol/L 5-14 Serum or plasma urea nitrogen measurement (mass/volume) 19 mg/dL 7-18 Serum or plasma creatinine measurement (mass/volume) 1.13 mg/dL 0.60-1.30 Serum or plasma urea nitrogen/creatinine mass ratio 17 NRG Serum or plasma creatinine measurement with calculation of estimated glomerular filtration rate > NRG Serum or plasma glucose measurement (mass/volume) 95 mg/dL 70-105 Serum or plasma calcium measurement (mass/volume) 10.8 mg/dL 8.5-10.1 Serum or plasma total bilirubin measurement (mass/volume) 0.4 mg/dL 0.1-1.0 Serum or plasma alkaline phosphatase measurement (enzymatic activity/volume) 70 U/L 40-136 Serum or plasma aspartate aminotransferase measurement (enzymatic activity/ volume) 27 U/L 5-34 Serum or plasma alanine aminotransferase measurement (enzymatic activity/volume ) 37 U/L 0-55 Serum or plasma protein measurement (mass/volume) 8.0 g/dL 6.4-8.2 Serum or plasma albumin measurement (mass/volume) 4.9 g/dL 3.2-4.5 Magnesium - 05/31/18 01:00 Magnesium 2.1 mg/dL 1.8-2.4 Lipase - 05/31/18 01:00 Lipase 31 U/L 8-78 Serum or plasma troponin i.cardiac measurement (mass/volume) - 05/31/18 01:00 Serum or plasma troponin i.cardiac measurement (mass/volume) < ng/ mL <0.30 Myoglobin, serum - 05/31/18 01:00 Myoglobin, serum 49.9 ng/mL 10.0-92.0 Complete urinalysis with reflex to culture - 05/31/18 02:10 Urine color determination YELLOW NRG Urine clarity determination VERY CLOUDY NRG Urine pH measurement by test strip 8 5-9 Specific gravity of urine by test strip 1.015 1.016- 1.022 Urine protein assay by test strip, semi-quantitative NEGATIVE NEGATIVE Urine glucose detection by automated test strip NEGATIVE NEGATIVE Erythrocytes detection in urine sediment by light microscopy NEGATIVE NEGATIVE Urine ketones detection by automated test strip NEGATIVE NEGATIVE Urine nitrite detection by test strip NEGATIVE NEGATIVE Urine total bilirubin detection by test strip NEGATIVE NEGATIVE Urine urobilinogen measurement by automated test strip (mass/volume) NORMAL NORMAL Urine leukocyte esterase detection by dipstick 1+ NEGATIVE Automated urine sediment erythrocyte count by microscopy (number/high power field) NONE NRG Automated urine sediment leukocyte count by microscopy (number/high power field ) RARE NRG Bacteria detection in urine sediment by light microscopy MODERATE NRG Crystals detection in urine sediment by light microscopy PRESENT NRG Casts detection in urine sediment by light microscopy NONE NRG Mucus detection in urine sediment by light microscopy NEGATIVE NRG Complete urinalysis with reflex to culture NO NRG Amorphous sediment detection in urine sediment by light microscopy LARGE EMMA PHOSPHATE NRG Encounters ACCT No. Visit Date/Time Discharge Status Pt. Type Provider Facility Loc./Unit Complaint [id number] 03/15/2017 09:33:30 03/15/2017 23:59:59 DIS Outpatient BÁRBARA RAND [facility] SOHEILA RAD XRAY [id number] 11/29/2017 12:22:00 Document Registration [id number] 05/31/2018 00:52:00 05/31/2018 02:39:00 DIS Outpatient DOMENICA NEGRON MD [facility] ER CP [id number] 07/31/2017 14:34:00 07/31/2017 23:59:59 CLS Outpatient JONO RODRÍGUEZ MD [facility] RAD RT WRIST PAIN [id number] 03/26/2017 09:54:00 03/26/2017 23:59:59 CLS Preadmit BÁRBARA RAND MD [facility] REHAB L5-S1 LYTIC SPONDYLOLISTHESIS [id number] 01/13/2017 02:40:00 01/13/2017 03:40:00 DIS Emergency ALLYSON BARBOSA DO [facility] ER BACK PAIN [id number] 05/05/2016 10:21:00 05/05/2016 23:59:59 CLS Outpatient JONO RODRÍGUEZ MD [facility] RAD RT KNEE PAIN/ EFFUSION S/P FOOTBALL INJURY [id number] 02/20/2016 16:01:00 02/20/2016 23:59:59 CLS Outpatient PRUDENCE LOZANO F[employer] PATTERN GRADER [facility] RAD INJURED R INDEX FINGER PLAYING SOFTBALL [id number] 01/31/2016 13:09:00 01/31/2016 23:59:59 CLS Outpatient PRUDENCE LOZANO [employer] PATTERN GRADER [facility] RAD R KNEE PAIN [id number] 12/29/2014 13:29:00 12/29/2014 23:59:59 CLS Outpatient JONO RODRÍGUEZ MD [facility] RAD RT KNEE PAIN AND SWELLING [id number] 12/25/2014 05:31:00 12/25/2014 07:15:00 DIS Emergency AASHISH OTTO MD [facility] ER NECK,L SIDE PAIN [id number] 03/14/2014 01:41:00 03/14/2014 02:44:00 DIS Emergency SARAH VANG MD [facility] ER CHEST PAIN;SOA [id number] 04/21/2013 16:35:00 04/21/2013 23:59:59 CLS Outpatient RUMA BRIONES DO Laura [facility] RAD RT KNEE TWISTED [id number] 12/29/2014 13:29:00 Document Registration [id number] 11/26/2017 16:51:00 11/26/2017 23:59:00 DIS Outpatient JONO RODRÍGUEZ [id number] 11/26/2017 15:46:00 11/26/2017 23:59:00 DIS Outpatient JONO RODRÍGUEZ [id number] 10/22/2017 10:47:00 10/22/2017 23:59:00 DIS Outpatient Mary Lozano [id number] 12/04/2016 16:33:00 12/04/2016 23:59:00 DIS Outpatient Mary Lozano [id number] 09/16/2014 08:32:00 09/16/2014 23:59:59 CLS Outpatient EVELINA ANGUIANO APRN [id number] 06/08/2014 10:11:00 06/08/2014 23:59:59 CLS Outpatient EVELINA ANGUIANO APRN [id number] 02/02/2014 08:56:00 02/02/2014 23:59:59 CLS Outpatient EVELINA ANGUIANO APRN [id number] 02/02/2014 08:56:00 02/02/2014 23:59:59 CLS Outpatient EVELINA ANGUIANO APRN [id number] 07/28/2013 08:58:00 07/28/2013 23:59:59 CLS Outpatient SERGIO TIAN APRN [id number] 02/04/2013 12:55:00 02/04/2013 23:59:59 CLS Outpatient REN SIDDIQUI PHD [id number] 09/25/2012 09:40:00 09/25/2012 23:59:59 CLS Outpatient [id number] 08/28/2012 08:56:00 08/28/2012 23:59:59 CLS Outpatient [id number] 07/30/2012 09:15:00 07/30/2012 23:59:59 CLS Outpatient [id number] 06/19/2012 08:50:00 06/19/2012 23:59:59 CLS Outpatient [id number] 06/19/2012 08:50:00 06/19/2012 23:59:59 CLS Outpatient [id number] 01/07/2013 09:54:00 Document Registration [id number] 12/16/2012 08:36:00 Document Registration [id number] 11/25/2012 12:53:00 Document Registration [id number] 11/05/2012 09:56:00 Document Registration [id number] 09/19/2017 16:55:00 09/19/2017 23:59:59 CLS Outpatient MARELY DUKES APRN [facility]
--- NOTE | 2018-07-07 21:27 | Diagnostic Imaging Report ---
Clinical dictation: Patient with coughing for 3 weeks. 2 days ago started coughing up blood. Exam: Chest x-ray PA and lateral views. Comparisons: Chest x-ray dated 05/23/2018. Findings: Lungs/pleura: Slight low lung volumes are again seen. Suspected mild bibasilar atelectasis. Otherwise, lungs are clear. There is no pneumothorax. There is no pleural effusion. Mediastinum: Unremarkable. Pulmonary vasculature: Unremarkable. Heart: Unremarkable. Bones/extrathoracic soft tissue: Unremarkable. Impression: Stable suspected mild bibasilar atelectasis with slight low lung volumes. Otherwise, there is no radiographic evidence of acute cardiopulmonary process. Dictated by: Dictated on workstation # [id number]
[2018-07-07 21:33] LABS: BASOPHILS # (AUTO) 0.1 10^3/uL (0.0-0.1); BASOPHILS % (AUTO) 1 % (0-10); EOSINOPHILS # (AUTO) 0.3 10^3/uL (0.0-0.3); EOSINOPHILS % (AUTO) 4 % (0-10); HEMATOCRIT 41 % (40-54); HEMOGLOBIN 13.7 G/DL (13.3-17.7); LYMPHOCYTES # (AUTO) 2.2 X 10^3 (1.0-4.0); LYMPHOCYTES % (AUTO) 30 % (12-44); MEAN CORPUSCULAR HEMOGLOBIN 31 PG (25-34); MEAN CORPUSCULAR HGB CONC 33 G/DL (32-36); MEAN CORPUSCULAR VOLUME 92 FL (80-99); MEAN PLATELET VOLUME 11.8 FL (7.4-10.4); MONOCYTES # (AUTO) 0.5 X 10^3 (0.0-1.0); MONOCYTES % (AUTO) 8 % (0-12); NEUTROPHILS # (AUTO) 4.1 X 10^3 (1.8-7.8); NEUTROPHILS % (AUTO) 58 % (42-75); PLATELET COUNT 230 10^3/uL (130-400); RED BLOOD COUNT 4.49 10^6/uL (4.35-5.85); RED CELL DISTRIBUTION WIDTH 13.5 % (10.0-14.5); WHITE BLOOD COUNT 7.2 10^3/uL (4.3-11.0)
--- NOTE | 2018-07-07 21:54 | ED Cough/URI ---
General Chief Complaint: Cough/Cold/Flu Symptoms Stated Complaint: COUGH FOR 3 WKS Nursing Triage Note: Pt ambulated to triage rm w/o difficulty. Pt reports cough with sputum production for the last three weeks. Pt reports sputum being either bloody or yellow in color. Pt reports not being able to see PCP due to working every day. Source: patient Exam Limitations: no limitations History of Present Illness Date Seen by Provider: Jul 07, 2018 Allergies and Home Medications Allergies Coded Allergies: No Known Drug Allergies (Unverified , 04/03/10) Home Medications Cyclobenzaprine HCl 10 Mg Tablet, 10 MG PO Q8H Prescribed by: ALLYSON BARBOSA on 01/13/17 0300 Cyclobenzaprine Hcl 10 Mg Tablet, 1 EACH PO Q8H PRN for SPASMS Prescribed by: AASHISH OTTO on 12/25/14 0706 Ibuprofen 800 Mg Tablet, 800 MG PO q8h PRN for PAIN Prescribed by: AASHISH OTTO on 12/25/14 0706 Naproxen 500 Mg Tablet, 500 MG PO BID Prescribed by: ALLYSON BARBOSA on 01/13/17 0300 Past Smfszps-Yfpscf-Rgelaw Hx Patient Social History Alcohol Use: Occasionally Uses Number of Drinks Today: AA Alcohol Beverage of Choice: Beer Recreational Drug Use: No Smoking Status: Never a Smoker Type Used: Cigarettes Former Smoker, Quit: Apr 21, 2016 2nd Hand Smoke Exposure: No Recent Foreign Travel: No Contact w/Someone Who Travel: No Recent Infectious Disease Expo: No Recent Hopitalizations: No Immunizations Up To Date Tetanus Booster (TDap): Unknown PED Vaccines UTD: Yes Seasonal Allergies Seasonal Allergies: No Past Medical History Surgeries: Yes ("TOP OF PRIVATE AREA CUT OFF") Respiratory: No Cardiac: Yes Heart Murmur, Hypertension Neurological: No Genitourinary: No Gastrointestinal: No Musculoskeletal: Yes Chronic Back Pain Endocrine: No HEENT: No Cancer: No Psychosocial: Yes (MILD MR) ADD/ADHD, Depression Integumentary: No Blood Disorders: No Physical Exam Vital Signs - First Documented 07/07/18 20:25 Temp 98.1 Pulse 89 Resp 15 B/P (MAP) 125/85 (98) Pulse Ox 96 O2 Delivery Room Air Capillary Refill : Less Than 3 Seconds Height: 5'8.00" Weight: 145lbs. oz. 65.411822jo; 22.20 BMI Method:Stated Progress/Results/Core Measures Suspected Sepsis Recent Fever Within 48 Hours: No Infection Criteria Present: None New/Unexplained Altered Menta: No Sepsis Screen: No Definite Risk SIRS Temperature:98.1 Pulse: 89 Respiratory Rate: 15 Laboratory Tests 07/07/18 21:24: White Blood Count 7.2 Blood Pressure 125 /85 Mean: 98 Laboratory Tests 07/07/18 21:24: Platelet Count 230 Results/Orders Lab Results Laboratory Tests Test 07/07/18 21:24 Range/Units White Blood Count 7.2 4.3-11.0 10^3/uL Red Blood Count 4.49 4.35-5.85 10^6/uL Hemoglobin 13.7 13.3-17.7 G/DL Hematocrit 41 40-54 % Mean Corpuscular Volume 92 80-99 FL Mean Corpuscular Hemoglobin 31 25-34 PG Mean Corpuscular Hemoglobin Concent 33 32-36 G/DL Red Cell Distribution Width 13.5 10.0-14.5 % Platelet Count 230 130-400 10^3/uL Mean Platelet Volume 11.8 H 7.4-10.4 FL Neutrophils (%) (Auto) 58 42-75 % Lymphocytes (%) (Auto) 30 12-44 % Monocytes (%) (Auto) 8 0-12 % Eosinophils (%) (Auto) 4 0-10 % Basophils (%) (Auto) 1 0-10 % Neutrophils # (Auto) 4.1 1.8-7.8 X 10^3 Lymphocytes # (Auto) 2.2 1.0-4.0 X 10^3 Monocytes # (Auto) 0.5 0.0-1.0 X 10^3 Eosinophils # (Auto) 0.3 0.0-0.3 10^3/uL Basophils # (Auto) 0.1 0.0-0.1 10^3/uL Micro Results Microbiology 07/07/18 Influenza Types A,B Antigen (HERO) - Final, Complete My Orders Orders - HARMAN OCONNOR Cbc With Automated Diff (07/07/18 20:33) Comprehensive Metabolic Panel (07/07/18 20:33) Influenza A And B Antigens (07/07/18 20:33) Chest Pa/Lat (2 View) (07/07/18 20:33) Vital Signs/I&O 07/07/18 07/07/18 20:25 20:25 Temp 98.1 Pulse 89 Resp 15 B/P (MAP) 125/85 (98) Pulse Ox 96 O2 Delivery Room Air Room Air Capillary Refill : Less Than 3 Seconds Blood Pressure Mean: 98 Departure Impression Primary Impression: Bronchitis Disposition: 01 HOME, SELF-CARE Condition: Stable/Unchanged Departure-Patient Inst. Decision time for Depature: 21:55 Referrals: JONO RODRÍGUEZ MD (PCP/Family) Primary Care Physician Patient Instructions: Acute Bronchitis, Adult (DC) Add. Discharge Instructions: Take medications as directed. You may use kvwy-kdg-zjjpqeo antitussives such as Robitussin. He of clear liquids. You may use Tylenol and ibuprofen as needed for pain and fever. Follow-up with her primary care provider within 1 week for recheck. Return back to the emergency room for any worsening symptoms or concerns as needed. All discharge instructions reviewed with patient and/or family. Voiced understanding. Scripts Methylprednisolone (Medrol) 4 Mg Tab.ds.pk 4 MG PO UD, #1 PKG Prov: HARMAN OCONNOR 07/07/18 Azithromycin (Zithromax) 250 Mg Tablet 250 MG PO UD, #6 TAB TAKE 2 TABLETS TODAY, THEN TAKE 1 TABLET DAILY FOR 4 MORE DAYS Prov: HARMAN OCONNOR 07/07/18 Work/School Note: School/Childcare Release Date Seen in the Emergency Department: Jul 07, 2018 Time Dismissed from Emergency Department: 21:57 Return to School: Jul 08, 2018 Restrictions: No Restrictions HARMAN OCONNOR Jul 07, 2018 21:54
[2018-07-07 21:55] LABS: ALANINE AMINOTRANSFERASE 28 U/L (0-55); ALBUMIN 4.5 GM/DL (3.2-4.5); ALKALINE PHOSPHATASE 77 U/L (40-136); BILIRUBIN,TOTAL 0.4 MG/DL (0.1-1.0); BUN/CREATININE RATIO 16; CALCIUM 9.6 MG/DL (8.5-10.1); CARBON DIOXIDE 25 MMOL/L (21-32); CHLORIDE 105 MMOL/L (98-107); CREATININE SERUM 1.08 MG/DL (0.60-1.30); GFR ESTIMATED > 60; GLUCOSE 94 MG/DL (70-105); POTASSIUM 3.8 MMOL/L (3.6-5.0); SODIUM 141 MMOL/L (135-145); TOTAL PROTEIN 7.7 GM/DL (6.4-8.2)
[2018-07-07] MEDS ORDERED: METH4TAB PO (21:57)
[2018-07-07] MEDS ORDERED: AZIT250T PO (21:57)
[2018-07-07 22:15] VITALS: BP 125/85
== END 2018-07-07 22:15 | disposition home or self-care (01) ==
LOC: ER 20:23 → EDUNIT# 20:23 → ER 22:15
DX: J40 Bronchitis, not specified as acute or chronic (principal); I10 Essential (primary) hypertension; F98.8 Other specified behavioral and emotional disorders with onset usually occurring in childhood and adolescence; F90.9 Attention-deficit hyperactivity disorder, unspecified type; F32.9 Major depressive disorder, single episode, unspecified; Z87.891 Personal history of nicotine dependence
CPT/HCPCS: 36415; 71046; 80053; 85025; 87804

== ENCOUNTER 2018-08-20 19:00 | Emergency (ER) | payer MEDICARE, MEDICAID ==
[~2018-08-20] VITALS: Ht 172.7 cm; Wt 72.6 kg
[~2018-08-20 19:00] MED LIST changes: +AZIT250T PO; +METH4TAB PO
[2018-08-20] MEDS ORDERED: ONDANSETRON 4 MG (ZOFRAN) ORAL DISSOLVE TAB ONE (19:26)
[2018-08-20] MEDS ORDERED: ONDANSETRON 4 MG (ZOFRAN) ORAL DISSOLVE TAB PO ONE (19:30)
[2018-08-20] MEDS ORDERED: D5 NS 1000 ML IV SOLUTION 1,000 ML IV ONE (20:05)
[2018-08-20] MEDS ORDERED: ONDANSETRON 4 MG/2 ML (SDV) Z0FRAN IVP ONE (20:15)
[2018-08-20] MEDS ORDERED: ONDA4TAB11 PO (20:48)
--- NOTE | 2018-08-20 20:48 | ED GI ---
General Chief Complaint: Abdominal/GI Problems Stated Complaint: VOMITING,RUNS Nursing Triage Note: PT PRESENTS TO ER WITH COMPLAINT OF ABD PAIN, N/V SINCE 4AM. STATES HE LAST VOMITED AT 2PM Sepsis Screen: No Definite Risk History of Present Illness Date Seen by Provider: Aug 20, 2018 Time Seen by Provider: 19:20 Initial Comments Patient presents to ER by Jayce vo with chief complaint of nausea vomiting abdominal discomfort in the epigastric region worse with vomiting and diarrhea. This started about 3 or 4:00 this morning. He's been using Tums and having minimal relief. Kind of drink soup fluids Gatorade but not able to keep them down. Everybody at his work is having the same thing. He's not been camping or drinking from any unsafe water sources or been outside the [facility] in the last week. He's had no fevers chills cough shortness of breath. Allergies and Home Medications Allergies Coded Allergies: No Known Drug Allergies (Unverified , 04/03/10) Home Medications Azithromycin 250 Mg Tablet, 250 MG PO UD TAKE 2 TABLETS TODAY, THEN TAKE 1 TABLET DAILY FOR 4 MORE DAYS Prescribed by: HARMAN OCONNOR on 07/07/182156 Cyclobenzaprine HCl 10 Mg Tablet, 10 MG PO Q8H Prescribed by: ALLYSON BARBOSA on 01/13/17 0300 Cyclobenzaprine Hcl 10 Mg Tablet, 1 EACH PO Q8H PRN for SPASMS Prescribed by: AASHISH OTTO on 12/25/14 0706 Ibuprofen 800 Mg Tablet, 800 MG PO q8h PRN for PAIN Prescribed by: AASHISH OTTO on 12/25/14 0706 Methylprednisolone 4 Mg Tab.ds.pk, 4 MG PO UD Prescribed by: HARMAN OCONNOR on 07/07/182156 Naproxen 500 Mg Tablet, 500 MG PO BID Prescribed by: ALLYSON BARBOSA on 01/13/17 0300 Patient Home Medication List Home Medication List Reviewed: Yes Review of Systems Review of Systems Constitutional: No chills, No diaphoresis, No fever, No malaise EENTM: No Blurred Vision, No Double Vision Respiratory: Denies Cough, Denies Shortness of Air Cardiovascular: Denies Chest Pain, Denies Lightheadedness Gastrointestinal: Denies Constipated; Diarrhea, Nausea, Vomiting Genitourinary: Denies Burning, Denies Discharge, Denies Drainage Musculoskeletal: No back pain, No joint pain Skin: No pruritus, No rash Psychiatric/Neurological: Denies Headache, Denies Numbness Past Zbmpnka-Kbkmkl-Pkingy Hx Patient Social History Alcohol Use: Occasionally Uses Number of Drinks Today: AA Alcohol Beverage of Choice: Beer Recreational Drug Use: No Smoking Status: Current Someday Smoker Type Used: Cigarettes Former Smoker, Quit: Apr 21, 2016 2nd Hand Smoke Exposure: No Recent Foreign Travel: No Contact w/Someone Who Travel: No Recent Infectious Disease Expo: No Recent Hopitalizations: No Immunizations Up To Date Tetanus Booster (TDap): Unknown PED Vaccines UTD: Yes Seasonal Allergies Seasonal Allergies: No Past Medical History Surgeries: Yes ("TOP OF PRIVATE AREA CUT OFF") Respiratory: No Cardiac: Yes Heart Murmur, Hypertension Neurological: No Genitourinary: No Gastrointestinal: No Musculoskeletal: Yes Chronic Back Pain Endocrine: No HEENT: No Cancer: No Psychosocial: Yes (MILD MR) ADD/ADHD, Depression Integumentary: No Blood Disorders: No Physical Exam Vital Signs Vital Signs - First Documented 08/20/18 19:19 Pulse 108 Resp 20 B/P (MAP) 127/92 (104) Pulse Ox 98 O2 Delivery Room Air Capillary Refill : Less Than 3 Seconds Height/Weight/BMI Height: 5'8.00" Weight: 160lbs. oz. 72.844132id; 22.20 BMI Method:Stated General Appearance: WD/WN, mild distress HEENT: PERRL/EOMI, normal ENT inspection, pharynx normal (oropharynx mildly dry ) Respiratory: chest non-tender, lungs clear, normal breath sounds, no respiratory distress, no accessory muscle use Cardiovascular: normal peripheral pulses, regular rate, rhythm, no edema Peripheral Pulses: 2+ Dorsalis Pedis (R), 2+ Left Dors-Pedis (L) Gastrointestinal: normal bowel sounds (active), soft, tenderness (mild epigastric tenderness to operation.) Extremities: normal range of motion, normal capillary refill Back: normal inspection, no CVA tenderness Neurologic/Psychiatric: alert, normal mood/affect, oriented x 3 Skin: normal color, warm/dry Progress/Results/Core Measures Results/Orders My Orders Orders - ALEJANDRO CROOKS Ondansetron Oral Dissolve Tab (Zofran (08/20/18 19:30) Ondansetron Oral Dissolve Tab (Zofran (08/20/18 19:26) Saline Lock/Iv-Start (08/20/18 20:05) D5 Ns 1000 Ml Iv Solution (Dextrose 5%/0 (08/20/18 20:05) Ondansetron Injection (Zofran Injectio (08/20/18 20:15) Medications Given in ED Current Medications Medications Dose Ordered Sig/Ric Route Start Time Stop Time Status Last Admin Dose Admin Dextrose/Sodium Chloride 1,000 ml @ 0 mls/hr Q0M ONCE IV 08/20/18 20:05 08/20/18 20:06 DC 08/20/18 20:15 1,000 MLS/HR Ondansetron HCl 4 mg ONCE ONCE IVP 08/20/18 20:15 08/20/18 20:16 DC 08/20/18 20:15 4 MG Ondansetron HCl 4 mg ONCE ONCE PO 08/20/18 19:30 08/20/18 19:31 DC 08/20/18 19:32 4 MG Vital Signs/I&O 08/20/18 19:19 Pulse 108 Resp 20 B/P (MAP) 127/92 (104) Pulse Ox 98 O2 Delivery Room Air Blood Pressure Mean: 104 Progress Progress Note : Time: 20:45 Progress Note Patient's heart rate has been in the 80s through 110 since she's been here. We are going to him a bag of fluids. His first oral dissolving tablet Zofran reduced his nausea significantly but he was still having some nausea without vomiting. We gave him an IV dose of Zofran we'll he was receiving his D5 normal saline. Gastroenteritis with colitis probably viral given his nonacute presentation. Departure Impression Primary Impression: Gastroenteritis and colitis, viral Disposition: 01 HOME, SELF-CARE Condition: Stable Departure-Patient Inst. Decision time for Depature: 20:46 Referrals: JONO RODRÍGUEZ MD (PCP/Family) Primary Care Physician Patient Instructions: Viral Gastroenteritis, Adult (DC) Add. Discharge Instructions: Use the Zofran every 6 hours as needed to control your nausea. Drink lots of fluids especially sports drinks. Stick to a liquid diet with bland non-spicy foods such as bananas, rice, applesauce or toast until your diarrhea clears up. If her diarrhea persists for more than 48 hours or she can't keep up with your fluid intake then you can start taking Imodium 2 tablets of first and then one tablet every 4 hours until you're no longer having watery diarrhea. If you begin to have fever above 102.5 or severe intractable abdominal pain not treated by Tylenol or ibuprofen then you should represent to your doctor. All discharge instructions reviewed with patient and/or family. Voiced understanding. Scripts Ondansetron (Ondansetron Odt) 4 Mg Tab.rapdis 4 MG PO Q6H PRN for NAUSEA/VOMITING, #12 TAB 0 Refills Prov: ALEJANDRO CROOKS 08/20/18 Work/School Note: Work Release Form Date Seen in the Emergency Department: Aug 20, 2018 Return to Work: Aug 22, 2018 Restrictions: No Restrictions ALEJANDRO CROOKS Aug 20, 2018 20:48
[2018-08-20] MEDS ORDERED: RX-ONDANSETRON 4 MG ODT (ZOFRAN) PPK #4 PO STA (20:51)
[2018-08-20 21:08] VITALS: BP 122/72
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
== END 2018-08-20 21:08 | disposition home or self-care (01) ==
LOC: EDUNIT# 19:00 → ER 19:01
DX: A08.4 Viral intestinal infection, unspecified (principal); I10 Essential (primary) hypertension; F98.8 Other specified behavioral and emotional disorders with onset usually occurring in childhood and adolescence; F90.9 Attention-deficit hyperactivity disorder, unspecified type; F32.9 Major depressive disorder, single episode, unspecified; Z79.52 Long term (current) use of systemic steroids; Z87.891 Personal history of nicotine dependence; Z98.890 Other specified postprocedural states

== ENCOUNTER 2019-03-30 22:48 | Emergency (ER) | payer MEDICARE, MEDICAID ==
[~2019-03-30] VITALS: Ht 167 cm; Wt 70.0 kg
[~2019-03-30 22:48] MED LIST changes: +ONDA4TAB11 PO
[2019-03-30] MEDS ORDERED: RX-POLY/TRIMETH (POLYTRIM) OP 10 ML BTL OP STA (23:01)
--- NOTE | 2019-03-30 23:01 | ED EENT ---
History of Present Illness General Stated Complaint: R EYE SWELLING / PAIN Source: patient Exam Limitations: no limitations History of Present Illness Date Seen by Provider: Mar 30, 2019 Time Seen by Provider: 23:00 Initial Comments 38 year old male who presents with complains of right eye redness and lid swelling for the past 4 days. Reports that he has tried otc eye drops with out relief. Denies visual disturbances. Location: eye (R) Prearrival Treatment: over the counter meds Associated Symptoms: denies symptoms Allergies and Home Medications Allergies Coded Allergies: No Known Drug Allergies (Unverified , 04/03/10) Home Medications Azithromycin 250 Mg Tablet, 250 MG PO UD TAKE 2 TABLETS TODAY, THEN TAKE 1 TABLET DAILY FOR 4 MORE DAYS Prescribed by: HARMAN OCONNOR on 07/07/182156 Cyclobenzaprine HCl 10 Mg Tablet, 10 MG PO Q8H Prescribed by: ALLYSON BARBOSA on 01/13/17 0300 Cyclobenzaprine Hcl 10 Mg Tablet, 1 EACH PO Q8H PRN for SPASMS Prescribed by: AASHISH OTTO on 12/25/14 0706 Ibuprofen 800 Mg Tablet, 800 MG PO q8h PRN for PAIN Prescribed by: AASHISH OTTO on 12/25/14 0706 Methylprednisolone 4 Mg Tab.ds.pk, 4 MG PO UD Prescribed by: HARMAN OCONNOR on 07/07/182156 Naproxen 500 Mg Tablet, 500 MG PO BID Prescribed by: ALLYSON BARBOSA on 01/13/17 0300 Ondansetron 4 Mg Tab.rapdis, 4 MG PO Q6H PRN for NAUSEA/VOMITING Prescribed by: ALEJANDRO CROOKS on 08/20/182047 Patient Home Medication List Home Medication List Reviewed: Yes Review of Systems Review of Systems Constitutional: see HPI; No chills, No fever Eyes: See HPI, Inflammation, Pain Past Pkozazj-Mjnake-Jqubbc Hx Past Med/Social Hx: Reviewed Nursing Past Med/Soc Hx Patient Social History Alcohol Beverage of Choice: Beer Type Used: Cigarettes Former Smoker, Quit: Apr 21, 2016 2nd Hand Smoke Exposure: No Recent Foreign Travel: No Contact w/Someone Who Travel: No Recent Hopitalizations: No Immunizations Up To Date Tetanus Booster (TDap): Unknown PED Vaccines UTD: Yes Seasonal Allergies Seasonal Allergies: No Past Medical History Surgeries: Yes ("TOP OF PRIVATE AREA CUT OFF") Respiratory: No Cardiac: Yes Heart Murmur, Hypertension Neurological: No Genitourinary: No Gastrointestinal: No Musculoskeletal: Yes Chronic Back Pain Endocrine: No HEENT: No Cancer: No Psychosocial: 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 oz. 72.664971km; 22.20 BMI Method:Stated General Appearance: WD/WN, no apparent distress Eyes: right eye conjunctival inflammation, right eye lid inflammation Cardiovascular: normal peripheral pulses, regular rate, rhythm, no edema, no gallop, no JVD, no murmur Respiratory: chest non-tender, lungs clear, normal breath sounds, no respiratory distress, no accessory muscle use Neurologic/Psychiatric: alert, normal mood/affect, oriented x 3 Skin: normal color, warm/dry Progress/Results/Core Measures Results/Orders My Orders Orders - HARMAN OCONNOR Rx-Poly/Trimeth Ophth (Rx-Polytrim Ophth (03/30/19 23:01) Departure Impression Primary Impression: Conjunctivitis Disposition: 01 HOME, SELF-CARE Condition: Stable/Unchanged Departure-Patient Inst. Decision time for Depature: 23:00 Referrals: JONO RODRÍGUEZ MD (PCP/Family) Primary Care Physician Patient Instructions: Conjunctivitis (Pinkeye) Add. Discharge Instructions: 2 drops 4 times a day to the affected eye. 5 days. Follow-up with eye doctor within 1 week for recheck. Return back to the emergency room for worsening symptoms or concerns as needed. HARMAN OCONNOR Mar 30, 2019 23:00
[2019-03-30 23:32] VITALS: BP 143/95
== END 2019-03-30 23:32 | disposition home or self-care (01) ==
LOC: EDUNIT# 22:48 → ER 22:49
DX: H10.9 Unspecified conjunctivitis (principal); I10 Essential (primary) hypertension; F32.9 Major depressive disorder, single episode, unspecified; F90.9 Attention-deficit hyperactivity disorder, unspecified type; Z87.891 Personal history of nicotine dependence
CPT/HCPCS: 99283

== ENCOUNTER 2019-04-02 18:19 | Emergency (ER) | payer MEDICARE, MEDICAID ==
[~2019-04-02] VITALS: Ht 172 cm; Wt 68.0 kg
--- NOTE | 2019-04-02 18:43 | ED EENT ---
History of Present Illness General Chief Complaint: Eye Problems Stated Complaint: RT EYE IS SWOLLEN Nursing Triage Note: HERE FOR THE 2ND TIME THIS WEEK DUE TO THE SWELLING AND BURING IN RIGHT EYE AND RIGHT EYELID. STATES HE HAS BEEN USING THE DROPS AND THEY DONT WORK. DOES NOT BELIEVE IT IS PINK EYE. HAS AN EYE APPT FOR SATURDAY. Source: patient Exam Limitations: no limitations History of Present Illness Date Seen by Provider: Apr 02, 2019 Time Seen by Provider: 18:42 Initial Comments To ER with bilateral eye redness. This is been ongoing for about 2 weeks. He was seen here recently, diagnosed with pinkeye and given an antibiotic eyedrop. Denies improvement despite taking that as directed. He has itchy watery eyes and sneezing and runny nose. Timing/Duration: abrupt Severity: moderate Location: eye (R), eye (L) Associated Symptoms: denies symptoms Allergies and Home Medications Allergies Coded Allergies: No Known Drug Allergies (Unverified , 04/03/10) Patient Home Medication List Home Medication List Reviewed: Yes Review of Systems Review of Systems Constitutional: see HPI Eyes: See HPI Ears: See HPI Nose: see HPI, congestion Mouth: no symptoms reported Throat: no symptoms reported Respiratory: no symptoms reported Cardiovascular: no symptoms reported Musculoskeletal: no symptoms reported Skin: no symptoms reported Neurological: No Symptoms Reported (was just do some imaging) Hematologic/Lymphatic: No Symptoms Reported Immunological/Allergic: no symptoms reported Past Yzlnycu-Gwkhwj-Uxfdlg Hx Patient Social History Alcohol Use: Occasionally Uses Alcohol Beverage of Choice: Beer Recreational Drug Use: No Smoking Status: Never a Smoker Type Used: Cigarettes Former Smoker, Quit: Apr 21, 2016 2nd Hand Smoke Exposure: No Recent Foreign Travel: No Contact w/Someone Who Travel: No Recent Infectious Disease Expo: No Recent Hopitalizations: No Immunizations Up To Date Tetanus Booster (TDap): Unknown PED Vaccines UTD: Yes Seasonal Allergies Seasonal Allergies: No Past Medical History Surgeries: Yes ("TOP OF PRIVATE AREA CUT OFF") Respiratory: No Cardiac: Yes Heart Murmur, Hypertension Neurological: No Genitourinary: No Gastrointestinal: No Musculoskeletal: Yes Chronic Back Pain Endocrine: No HEENT: No Cancer: No Psychosocial: Yes (MILD MR) ADD/ADHD, Depression Integumentary: No Blood Disorders: No Physical Exam Vital Signs Vital Signs - First Documented 04/02/19 18:32 Temp 36.7 Pulse 88 Resp 16 B/P (MAP) 157/96 (116) Pulse Ox 97 O2 Delivery Room Air Height, Weight, BMI Height: 5'8.00" Weight: 160lbs. oz. 72.019683hy; 22.00 BMI Method:Stated General Appearance: WD/WN, no apparent distress (() Eyes: bilateral eye PERRL, bilateral eye other (conjunctivitis bilaterally clear discharge) Ears: bilateral ear auricle normal, bilateral ear canal normal, bilateral ear TM normal Neck: non-tender, full range of motion Respiratory: no respiratory distress, no accessory muscle use Neurologic/Psychiatric: alert, normal mood/affect, oriented x 3 Skin: normal color, warm/dry (allergic) Progress/Results/Core Measures Results/Orders My Orders Orders - LANE PERKINS APRN Betamethasone Acet/Na Phos Inj ([place] (04/02/19 18:45) Triamcinolone Acetonide Im (Kenalog-40) (04/02/19 18:45) Vital Signs/I&O 04/02/19 18:32 Temp 36.7 Pulse 88 Resp 16 B/P (MAP) 157/96 (116) Pulse Ox 97 O2 Delivery Room Air Blood Pressure Mean: 116 Departure Impression Primary Impression: Allergic conjunctivitis Qualified Codes: H10.13 - Acute atopic conjunctivitis, bilateral Disposition: 01 HOME, SELF-CARE Condition: Stable Departure-Patient Inst. Decision time for Depature: 18:45 Referrals: JONO RODRÍGUEZ MD (PCP/Family) Primary Care Physician Patient Instructions: Conjunctivitis (Noninfectious Pinkeye) Add. Discharge Instructions: Antihistamine eyedrops as directed. Follow-up with your eye doctor on Saturday. LANE PERKINS APRN Apr 02, 2019 18:43
[2019-04-02] MEDS ORDERED: TRIAMCINOLONE ACET (KENALOG-40) 40 MG/ML 1 ML VIAL IM ONE (18:45)
[2019-04-02] MEDS ORDERED: BETAMETHASONE ACE/NA PHOS 6 MG/ML (CELESTONE SOLUSPAN) IM ONE (18:45)
[2019-04-02 19:05] VITALS: BP 157/96
== END 2019-04-02 19:05 | disposition home or self-care (01) ==
LOC: EDUNIT# 18:19 → ER 18:26
DX: H10.13 Acute atopic conjunctivitis, bilateral (principal); I10 Essential (primary) hypertension; F32.9 Major depressive disorder, single episode, unspecified; F90.9 Attention-deficit hyperactivity disorder, unspecified type; Z87.891 Personal history of nicotine dependence
CPT/HCPCS: 99284

== ENCOUNTER 2019-04-23 22:30 | Emergency (ER) | payer MEDICARE, MEDICAID ==
[~2019-04-23] VITALS: Ht 172 cm; Wt 68.0 kg
[2019-04-23] MEDS ORDERED: LACTATED RINGERS 1,000 ML IV ONE (22:38)
[2019-04-23 22:48] LABS: BASOPHILS % (AUTO) 0 % (0-10); EOSINOPHILS % (AUTO) 0 % (0-10); HEMATOCRIT 44 % (40-54); HEMOGLOBIN 14.4 G/DL (13.3-17.7); LYMPHOCYTES # (AUTO) 1.9 X 10^3 (1.0-4.0); LYMPHOCYTES % (AUTO) 33 % (12-44); MEAN CORPUSCULAR HEMOGLOBIN 31 PG (25-34); MEAN CORPUSCULAR HGB CONC 33 G/DL (32-36); MEAN CORPUSCULAR VOLUME 93 FL (80-99); MEAN PLATELET VOLUME 11.3 FL (7.4-10.4); MONOCYTES # (AUTO) 0.5 X 10^3 (0.0-1.0); MONOCYTES % (AUTO) 8 % (0-12); NEUTROPHILS # (AUTO) 3.4 X 10^3 (1.8-7.8); NEUTROPHILS % (AUTO) 59 % (42-75); PLATELET COUNT 188 10^3/uL (130-400); RED CELL DISTRIBUTION WIDTH 14.7 % (10.0-14.5); WHITE BLOOD COUNT 5.7 10^3/uL (4.3-11.0)
[2019-04-23 23:03] LABS: ALANINE AMINOTRANSFERASE 28 U/L (0-55); ALBUMIN 4.5 GM/DL (3.2-4.5); ALKALINE PHOSPHATASE 72 U/L (40-136); BILIRUBIN,TOTAL 0.6 MG/DL (0.1-1.0); BUN/CREATININE RATIO 18; CALCIUM 9.5 MG/DL (8.5-10.1); CARBON DIOXIDE 26 MMOL/L (21-32); CHLORIDE 104 MMOL/L (98-107); CREATINE KINASE 228 U/L (30-200); GFR ESTIMATED > 60; GLUCOSE 104 MG/DL (70-105); POTASSIUM 3.6 MMOL/L (3.6-5.0); SODIUM 140 MMOL/L (135-145); TOTAL PROTEIN 7.5 GM/DL (6.4-8.2)
[2019-04-23 23:10] LABS: BILIRUBIN,URINE NEGATIVE (NEGATIVE); CLARITY,URINE CLEAR; COLOR,URINE YELLOW; GLUCOSE, URINE (UA) NEGATIVE (NEGATIVE); KETONES,URINE NEGATIVE (NEGATIVE); LEUKOCYTE ESTERASE ,URINE NEGATIVE (NEGATIVE); NITRITE,URINE NEGATIVE (NEGATIVE); PH,URINE 7 (5-9); PROTEIN,URINE NEGATIVE (NEGATIVE); UROBILINOGEN,URINE NORMAL (NORMAL)
[2019-04-23 23:17] LABS: BACTERIA,URINE NEGATIVE /HPF; SQUAMOUS EPITHELIAL CELL,UR RARE /HPF
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
[2019-04-23 23:47] VITALS: BP 138/94
== END 2019-04-23 23:48 | disposition home or self-care (01) ==
LOC: EDUNIT# 22:30 → ER 22:31
DX: T73.3XXA Exhaustion due to excessive exertion, initial encounter (principal); R42 Dizziness and giddiness; I10 Essential (primary) hypertension; F90.9 Attention-deficit hyperactivity disorder, unspecified type; F32.9 Major depressive disorder, single episode, unspecified; Z87.891 Personal history of nicotine dependence
CPT/HCPCS: 36415; 80053; 81000; 82550; 85025

== ENCOUNTER 2019-10-09 05:38 | Emergency (ER) | payer MEDICAID, MEDICARE ==
[~2019-10-09] VITALS: Ht 173 cm; Wt 74.7 kg
[2019-10-09 05:54] VITALS: BP_SYST 138; BP_SYST 154; BP_SYST 159; BP_DIAS 104; BP_DIAS 95; BP_DIAS 96
--- NOTE | 2019-10-09 06:05 | NUR ---
URINE SPECIMEN REQUESTED, PT DENIES BEING ABLE TO VOID AT THIS TIME.
[2019-10-09] MEDS ORDERED: LACTATED RINGERS 1,000 ML IV ONE (06:06)
--- NOTE | 2019-10-09 06:12 | ED General ---
General Chief Complaint: Dizziness/Syncope Stated Complaint: POSS FEVER, COUGH,DIZZY Nursing Triage Note: intermittant dizziness since 99 "worried about the alfaro virus" Nursing Sepsis Screen: No Definite Risk Source of Information: Patient, Old Records History of Present Illness Date Seen by Provider: Oct 09, 2019 Time Seen by Provider: 05:55 Initial Comments PT ARRIVES VIA POV--DROVE HERE FROM WORK AT [employer] HE HAS BEEN AT WORK ALL NIGHT, AND AROUND 99 THIS AM, HE STARTED HAVING DIZZINESS/LIGHTHEADEDNESS OFF AND ON STATES HE IS "WORRIED ABOUT CORONAVIRUS" PT HAS NO OTHER SYMPTOMS OF ANY KIND WHATSOEVER NO FEVER NO COUGH OR NASAL CONGESTION/RUNNY NOSE NO SORE THROAT NO CHEST PAIN NO SHORTNESS OF BREATH NO PALPITATIONS NO NAUSEA/VOMITING/DIARRHEA NO ABDOMINAL PAIN NO HEADACHE NO VISION CHANGES NO PARESTHESIAS OR MOTOR DEFICITS NO NECK PAIN OR STIFFNESS HAS BEEN EATING AND DRINKING NORMALLY AND VOIDING NORMALLY NO KNOWN EXPOSURE TO CORONAVIRUS, NO TRAVEL, ETC. PT LIVES ALONE IS FORMER SMOKER, QUIT IN 2015 AND NO SECOND HAND SMOKE NO HISTORY OF RESPIRATORY PROBLEMS PT HAS MILD MR, AND HAS RESIDED AT [facility] WHEN HE WAS HERE IN 2016 PCP: DR. RODRÍGUEZ Allergies and Home Medications Allergies Coded Allergies: No Known Drug Allergies (Unverified , 04/03/10) Home Medications No Active Prescriptions or Reported Meds Patient Home Medication List Home Medication List Reviewed: Yes Review of Systems Review of Systems Constitutional: see HPI; No chills; dizziness; No fever, No malaise, No weakness EENTM: no symptoms reported; No ear pain, No blurred vision, No nose congestion, No throat pain Respiratory: no symptoms reported; No cough, No short of breath, No wheezing Cardiovascular: no symptoms reported; No chest pain, No palpitations, No syncope Gastrointestinal: no symptoms reported; No abdominal pain, No diarrhea, No loss of appetite, No nausea, No vomiting Genitourinary: no symptoms reported; No decreased output Musculoskeletal: no symptoms reported; No back pain, No joint pain, No muscle pain, No neck pain Skin: no symptoms reported; No rash Psychiatric/Neurological: No Symptoms Reported; Denies Headache, Denies Numbness, Denies Paresthesia, Denies Tingling, Denies Other Hematologic/Lymphatic: No Symptoms Reported Immunological/Allergic: no symptoms reported Past Zfdddfv-Nwffcn-Jghkom Hx Past Med/Social Hx: Reviewed and Corrections made Patient Social History Alcohol Use: Occasionally Uses Number of Drinks Today: AA Alcohol Beverage of Choice: Beer Recreational Drug Use: No Smoking Status: Former Smoker Type Used: Cigarettes Former Smoker, Quit: Apr 21, 2016 2nd Hand Smoke Exposure: No Recent Foreign Travel: No Contact w/Someone Who Travel: No Recent Infectious Disease Expo: No Recent Hopitalizations: No Physical Abuse: No Sexual Abuse: No Mistreated: No Fear: No Immunizations Up To Date Tetanus Booster (TDap): Unknown PED Vaccines UTD: Yes Seasonal Allergies Seasonal Allergies: No Past Medical History Surgeries: Yes (? CIRCUMCISION ? ) Respiratory: No Cardiac: Yes (NO MEDICATIONS) Heart Murmur, Hypertension Neurological: Yes (MILD MR) Developmental Disorder Genitourinary: No Gastrointestinal: No Musculoskeletal: Yes Chronic Back Pain Endocrine: No HEENT: No Cancer: No Psychosocial: Yes (MILD MR) ADD/ADHD, Depression Integumentary: Yes Psoriasis Blood Disorders: No Physical Exam Vital Signs Vital Signs - First Documented 10/09/19 05:50 Temp 36.1 Pulse 70 Resp 16 B/P (MAP) 159/95 (116) Pulse Ox 96 O2 Delivery Room Air Capillary Refill : Less Than 3 Seconds Height, Weight, BMI Height: 5'8.00" Weight: 160lbs. oz. 72.218302tw; 24.00 BMI Method:Stated General Appearance: No Apparent Distress, WD/WN, Other (SMILING, DOES NOT APPEAR ILL. ) HEENT: PERRL/EOMI, TMs Normal, Normal ENT Inspection, Pharynx Normal, Moist Mucous Membranes Neck: Full Range of Motion, Normal Inspection, Non Tender, Supple Respiratory: Normal Breath Sounds, No Accessory Muscle Use, No Respiratory Distress Cardiovascular: Regular Rate, Rhythm, No Edema, No JVD, No Murmur, Normal Peripheral Pulses Gastrointestinal: Normal Bowel Sounds, No Organomegaly, No Pulsatile Mass, Non Tender, Soft Back: Normal Inspection, No CVA Tenderness, No Vertebral Tenderness Extremity: Normal Capillary Refill, Normal Inspection, Normal Range of Motion, Non Tender, No Calf Tenderness, No Pedal Edema Neurologic/Psychiatric: Alert, Oriented x3, No Motor/Sensory Deficits, Normal Mood/Affect, lining layer II-XII Norm as Tested Skin: Normal Color, Warm/Dry, Other (EXTENSIVE PSORIASIS TO SCALP AND EARS) Progress/Results/Core Measures Suspected Sepsis Recent Fever Within 48 Hours: No Infection Criteria Present: None New/Unexplained Altered Menta: No Sepsis Screen: No Definite Risk SIRS Temperature: Pulse: 80 Respiratory Rate: 16 Laboratory Tests 10/09/19 06:05: White Blood Count 6.6 Blood Pressure 138 /96 Mean: 110 Laboratory Tests 10/09/19 06:05: Creatinine 1.06, Platelet Count 218, Total Bilirubin 0.5 Results/Orders Lab Results Laboratory Tests Test 10/09/19 06:04 10/09/19 06:05 10/09/19 06:55 Range/Units Group A Streptococcus Screen NEGATIVE NEGATIVE White Blood Count 6.6 4.3-11.0 10^3/uL Red Blood Count 4.87 4.35-5.85 10^6/uL Hemoglobin 14.9 13.3-17.7 G/DL Hematocrit 45 40-54 % Mean Corpuscular Volume 92 80-99 FL Mean Corpuscular Hemoglobin 31 25-34 PG Mean Corpuscular Hemoglobin Concent 33 32-36 G/DL Red Cell Distribution Width 14.2 10.0-14.5 % Platelet Count 218 130-400 10^3/uL Mean Platelet Volume 11.7 H 7.4-10.4 FL Neutrophils (%) (Auto) 57 42-75 % Lymphocytes (%) (Auto) 34 12-44 % Monocytes (%) (Auto) 9 0-12 % Eosinophils (%) (Auto) 1 0-10 % Basophils (%) (Auto) 0 0-10 % Neutrophils # (Auto) 3.7 1.8-7.8 X 10^3 Lymphocytes # (Auto) 2.2 1.0-4.0 X 10^3 Monocytes # (Auto) 0.6 0.0-1.0 X 10^3 Eosinophils # (Auto) 0.0 0.0-0.3 10^3/uL Basophils # (Auto) 0.0 0.0-0.1 10^3/uL Sodium Level 140 135-145 MMOL/L Potassium Level 3.6 3.6-5.0 MMOL/L Chloride Level 103 98-107 MMOL/L Carbon Dioxide Level 26 21-32 MMOL/L Anion Gap 11 5-14 MMOL/L Blood Urea Nitrogen 19 H 7-18 MG/DL Creatinine 1.06 0.60-1.30 MG/DL Estimat Glomerular Filtration Rate > 60 BUN/Creatinine Ratio 18 Glucose Level 91 70-105 MG/DL Calcium Level 9.2 8.5-10.1 MG/DL Corrected Calcium 8.5-10.1 MG/DL Magnesium Level 2.2 1.6-2.4 MG/DL Total Bilirubin 0.5 0.1-1.0 MG/DL Aspartate Amino Transf (AST/SGOT) 38 H 5-34 U/L Alanine Aminotransferase (ALT/SGPT) 49 0-55 U/L Alkaline Phosphatase 78 40-136 U/L Total Protein 7.7 6.4-8.2 GM/DL Albumin 4.6 H 3.2-4.5 GM/DL TSH [place] Testing 1.43 0.35-4.94 UIU/ML Serum Alcohol < 10 <10 MG/DL Monoscreen NEGATIVE NEGATIVE Urine Color YELLOW Urine Clarity CLEAR Urine pH 6.0 5-9 Urine Specific [place] 1.025 H 1.016-1.022 Urine Protein NEGATIVE NEGATIVE Urine Glucose (UA) NEGATIVE NEGATIVE Urine Ketones TRACE H NEGATIVE Urine Nitrite NEGATIVE NEGATIVE Urine Bilirubin NEGATIVE NEGATIVE Urine Urobilinogen 1.0 < = 1.0 MG/DL Urine Leukocyte Esterase NEGATIVE NEGATIVE Urine RBC (Auto) NEGATIVE NEGATIVE Urine RBC 0-2 /HPF Urine WBC RARE /HPF Urine Crystals NONE /LPF Urine Bacteria NEGATIVE /HPF Urine Casts NONE /LPF Urine Mucus SMALL H /LPF Urine Culture Indicated NO Urine Opiates Screen NEGATIVE NEGATIVE Urine Oxycodone Screen NEGATIVE NEGATIVE Urine Methadone Screen NEGATIVE NEGATIVE Urine Propoxyphene Screen NEGATIVE NEGATIVE Urine Barbiturates Screen NEGATIVE NEGATIVE Ur Tricyclic Antidepressants Screen NEGATIVE NEGATIVE Urine Phencyclidine Screen NEGATIVE NEGATIVE Urine Amphetamines Screen NEGATIVE NEGATIVE Urine Methamphetamines Screen NEGATIVE NEGATIVE Urine Benzodiazepines Screen NEGATIVE NEGATIVE Urine Cocaine Screen NEGATIVE NEGATIVE Urine Cannabinoids Screen NEGATIVE NEGATIVE Micro Results Microbiology 10/09/19 Influenza Types A,B Antigen (HERO) - Final, Complete My Orders Orders - ALLYSON BARBOSA DO Ed Iv/Invasive Line Start (10/09/19 06:06) Monitor-Rhythm Ecg Trace Only (10/09/19 06:06) Orthostatic Vital Signs (Adult (10/09/19 06:06) Alcohol (10/09/19 06:06) Cbc With Automated Diff (10/09/19 06:06) Comprehensive Metabolic Panel (10/09/19 06:06) Drug Screen Stat (Urine) (10/09/19 06:06) Magnesium (10/09/19 06:06) Monotest (10/09/19 06:06) Rapid Strep A Screen (10/09/19 06:06) Thyroid Analyzer (10/09/19 06:06) Ua Culture If Indicated (10/09/19 06:06) Influenza A And B Antigens (10/09/19 06:06) Ed Iv/Invasive Line Start (10/09/19 06:06) Lactated Ringers (Lr 1000 Ml Iv Solution (10/09/19 06:06) Chest Pa/Lat (2 View) (10/09/19 06:06) Medications Given in ED Current Medications Medications Dose Ordered Sig/Ric Route Start Time Stop Time Status Last Admin Dose Admin Lactated Ringer's 1,000 ml @ 0 mls/hr Q0M ONCE IV 10/09/19 06:06 10/09/19 06:07 DC 10/09/19 06:11 0 MLS/HR Vital Signs/I&O 10/09/19 10/09/19 10/09/19 05:50 05:54 07:34 Temp 36.1 36.3 Pulse 70 70 64 70 80 Resp 16 16 B/P (MAP) 159/95 (116) 159/95 (116) 143/90 (110) 154/104 (121) 138/96 (110) Pulse Ox 96 96 O2 Delivery Room Air Room Air Capillary Refill : Less Than 3 Seconds Blood Pressure Mean: 110 Progress Note : Progress Note ORTHOSTATICS--DROP IN BP, SLIGHT INCREASE IN HEART RATE--PT ASYMPTOMATIC HOWEVER NO SYMPTOMS OR COMPLAINTS OF ANY KIND DURING ER STAY VITALS STABLE Diagnostic Imaging Comments CXR--NO ACUTE PROCESS, PER RADIOLOGIST REPORT AT 0701 Departure Impression Primary Impression: Mild dehydration Disposition: HOME, SELF-CARE Condition: Stable Departure-Patient Inst. Referrals: JONO RODRÍGUEZ MD (PCP/Family) Primary Care Physician Patient Instructions: Dehydration, Adult (DC) Add. Discharge Instructions: HOME, REST INCREASE YOUR FLUID INTAKE--LOTS OF CLEAR LIQUIDS--WATER, BROTH, JELLO, GATORADE FOLLOW UP WITH YOUR DR ON SATURDAY IF SYMPTOMS PERSIST, RETURN TO ER IF WORSE All discharge instructions reviewed with patient and/or family. Voiced understan jamarcus. Scripts No Active Prescriptions or Reported Meds ALLYSON BARBOSA DO Oct 09, 2019 06:12
[2019-10-09 06:19] LABS: BASOPHILS % (AUTO) 0 % (0-10); EOSINOPHILS % (AUTO) 1 % (0-10); HEMATOCRIT 45 % (40-54); HEMOGLOBIN 14.9 G/DL (13.3-17.7); LYMPHOCYTES # (AUTO) 2.2 X 10^3 (1.0-4.0); LYMPHOCYTES % (AUTO) 34 % (12-44); MEAN CORPUSCULAR HEMOGLOBIN 31 PG (25-34); MEAN CORPUSCULAR HGB CONC 33 G/DL (32-36); MEAN CORPUSCULAR VOLUME 92 FL (80-99); MEAN PLATELET VOLUME 11.7 FL (7.4-10.4); MONOCYTES # (AUTO) 0.6 X 10^3 (0.0-1.0); MONOCYTES % (AUTO) 9 % (0-12); NEUTROPHILS # (AUTO) 3.7 X 10^3 (1.8-7.8); NEUTROPHILS % (AUTO) 57 % (42-75); PLATELET COUNT 218 10^3/uL (130-400); RED CELL DISTRIBUTION WIDTH 14.2 % (10.0-14.5); WHITE BLOOD COUNT 6.6 10^3/uL (4.3-11.0)
[2019-10-09 06:36] LABS: ALANINE AMINOTRANSFERASE 49 U/L (0-55); ALBUMIN 4.6 GM/DL (3.2-4.5); ALKALINE PHOSPHATASE 78 U/L (40-136); BILIRUBIN,TOTAL 0.5 MG/DL (0.1-1.0); BUN/CREATININE RATIO 18; CALCIUM 9.2 MG/DL (8.5-10.1); CARBON DIOXIDE 26 MMOL/L (21-32); CHLORIDE 103 MMOL/L (98-107); CREATININE SERUM 1.06 MG/DL (0.60-1.30); GFR ESTIMATED > 60; GLUCOSE 91 MG/DL (70-105); MAGNESIUM 2.2 MG/DL (1.6-2.4); POTASSIUM 3.6 MMOL/L (3.6-5.0); SODIUM 140 MMOL/L (135-145); TOTAL PROTEIN 7.7 GM/DL (6.4-8.2)
[2019-10-09 06:56] LABS: TSH (THYROID ANALYZER) 1.43 UIU/ML (0.35-4.94)
--- NOTE | 2019-10-09 06:56 | Diagnostic Imaging Report ---
PA and lateral chest at 634 hours. INDICATION: Cough. FINDINGS: As on the prior exam of 07/07/2018, there is shallow inspiration. Allowing for this technical factor, the heart size is within normal limits and the lungs are clear. There is no evidence for failure, pneumonia or for a pleural effusion. The mediastinum is not widened. The osseous structures are intact. IMPRESSION: There is no evidence for active disease. Dictated by: Dictated on workstation # [id number]
[2019-10-09 07:07] LABS: BILIRUBIN,URINE NEGATIVE (NEGATIVE); CLARITY,URINE CLEAR; COLOR,URINE YELLOW; GLUCOSE, URINE (UA) NEGATIVE (NEGATIVE); KETONES,URINE TRACE (NEGATIVE); LEUKOCYTE ESTERASE ,URINE NEGATIVE (NEGATIVE); NITRITE,URINE NEGATIVE (NEGATIVE); PROTEIN,URINE NEGATIVE (NEGATIVE)
[2019-10-09 07:22] LABS: AMPHETAMINE SCREEN, URINE NEGATIVE (NEGATIVE); BARBITURATE SCREEN URINE NEGATIVE (NEGATIVE); BENZODIAZEPINES SCREEN URINE NEGATIVE (NEGATIVE); CANNABINOID SCREEN, URINE NEGATIVE (NEGATIVE); COCAINE SCREEN URINE NEGATIVE (NEGATIVE); METHADONE STAT NEGATIVE (NEGATIVE); METHAMPHETAMINE SCREEN URINE S NEGATIVE (NEGATIVE); OPIATE SCREEN URINE NEGATIVE (NEGATIVE); OXYCODONE STAT NEGATIVE (NEGATIVE); PROPOXYPHENE STAT NEGATIVE (NEGATIVE); TRICYCLIC ANTIDEPRESSANTS SCRE NEGATIVE (NEGATIVE)
[2019-10-09 07:23] LABS: BACTERIA,URINE NEGATIVE /HPF; RBC,URINE 0-2 /HPF; WBC,URINE RARE /HPF
[2019-10-09 07:34] VITALS: BP 143/90
== END 2019-10-09 07:34 | disposition home or self-care (01) ==
LOC: EDUNIT# 05:38 → ER 05:43
DX: E86.0 Dehydration (principal); Z87.891 Personal history of nicotine dependence
CPT/HCPCS: 36415; 71046; 80053; 80306; 80320; 81000; 83735; 84443; 85025; 86308; 87430; 87804; 93041; 96360

== ENCOUNTER 2020-01-26 21:02 | Emergency (ER) | payer MEDICARE, MEDICAID ==
[~2020-01-26] VITALS: Ht 172 cm; Wt 73.0 kg
[2020-01-26] MEDS ORDERED: LACTATED RINGERS 1,000 ML IV ONE (21:10)
--- NOTE | 2020-01-26 21:13 | ED General ---
General Stated Complaint: FLOATERS Source of Information: Patient Exam Limitations: No Limitations History of Present Illness Date Seen by Provider: Jan 26, 2020 Time Seen by Provider: 21:02 Initial Comments Patient present ER by EMS from home with chief complaint of feeling exhausted having driven thousand miles in the past 3 or 4 days hoping some friends move up to the [facility]. He says he also [place] and was out in the heat for couple hours. His been using extensive double shot caffeinated drinks trying to stay awake and as he was driving home he just felt terrible like he was going to fall sleep and crash his car. He is not having any fevers chills cough shortness of breath chest pain or pain/swelling in his leg. He does of a history of ADHD and hypertension. He does not take any medications for it anymore because he does not follow up with a primary care doctor. He says he started rubbing his eyes and saw floaters afterwards that spontaneously resolved. He denies alcohol or drug use just smoking cigarettes. Allergies and Home Medications Allergies Coded Allergies: No Known Drug Allergies (Unverified , 04/03/10) Home Medications No Active Prescriptions or Reported Meds Patient Home Medication List Home Medication List Reviewed: Yes Review of Systems Review of Systems Constitutional: No chills, No diaphoresis; dizziness; No fever, No malaise; weakness EENTM: No ear discharge, No ear pain Respiratory: No cough, No short of breath Cardiovascular: No chest pain, No edema Gastrointestinal: No abdominal pain, No nausea, No vomiting Genitourinary: No discharge, No dysuria Musculoskeletal: No back pain, No joint pain Skin: No pruritus, No rash Psychiatric/Neurological: Denies Headache, Denies Numbness All Other Systems Reviewed Negative Unless Noted: Yes Past Tujkzbd-Rtxmrj-Othhoi Hx Patient Social History Alcohol Use: Denies Use Alcohol Beverage of Choice: Beer Recreational Drug Use: No Smoking Status: Never a Smoker Type Used: Cigarettes Former Smoker, Quit: Apr 21, 2016 2nd Hand Smoke Exposure: No Recent Hopitalizations: No Immunizations Up To Date Tetanus Booster (TDap): Unknown PED Vaccines UTD: Yes Seasonal Allergies Seasonal Allergies: No Past Medical History Surgeries: Yes (? CIRCUMCISION ? ) Respiratory: No Cardiac: Yes (NO MEDICATIONS) Heart Murmur, Hypertension Neurological: Yes (MILD MR) Developmental Disorder Genitourinary: No Gastrointestinal: No Musculoskeletal: Yes Chronic Back Pain Endocrine: No HEENT: No Cancer: No Psychosocial: Yes (MILD MR) ADD/ADHD, Depression Integumentary: Yes Psoriasis Blood Disorders: No Physical Exam Vital Signs Vital Signs - First Documented 01/26/20 21:14 Temp 36.7 Pulse 85 Resp 16 B/P (MAP) 190/117 (141) Pulse Ox 97 O2 Delivery Room Air Capillary Refill : Height, Weight, BMI Height: 5'8.00" Weight: 160lbs. oz. 72.970225kw; 24.00 BMI Method:Stated General Appearance: No Apparent Distress, WD/WN Eyes: Bilateral Eye Normal Inspection, Bilateral Eye PERRL (4 mm bilateral reactive), Bilateral Eye EOMI HEENT: PERRL/EOMI, TMs Normal, Normal ENT Inspection, Pharynx Normal, Moist Mucous Membranes Neck: Full Range of Motion, Normal Inspection Respiratory: Lungs Clear, Normal Breath Sounds, No Accessory Muscle Use, No Respiratory Distress Cardiovascular: Regular Rate, Rhythm, No Edema, Normal Peripheral Pulses Gastrointestinal: Normal Bowel Sounds, Non Tender, Soft Extremity: Normal Capillary Refill, Normal Inspection, Normal Range of Motion, Non Tender Neurologic/Psychiatric: Alert, Oriented x3, No Motor/Sensory Deficits, Normal Mood/Affect, support teacher II-XII Norm as Tested Progress/Results/Core Measures Suspected Sepsis SIRS Temperature: Pulse: Respiratory Rate: Laboratory Tests 01/26/20 21:07: White Blood Count 8.9 Blood Pressure / Mean: Laboratory Tests 01/26/20 21:07: Creatinine 1.10, Platelet Count 203, Total Bilirubin 0.5 Results/Orders Lab Results Laboratory Tests Test 01/26/20 21:07 Range/Units White Blood Count 8.9 4.3-11.0 10^3/uL Red Blood Count 4.85 4.35-5.85 10^6/uL Hemoglobin 15.2 13.3-17.7 G/DL Hematocrit 45 40-54 % Mean Corpuscular Volume 93 80-99 FL Mean Corpuscular Hemoglobin 31 25-34 PG Mean Corpuscular Hemoglobin Concent 34 32-36 G/DL Red Cell Distribution Width 14.3 10.0-14.5 % Platelet Count 203 130-400 10^3/uL Mean Platelet Volume 12.8 H 7.4-10.4 FL Neutrophils (%) (Auto) 66 42-75 % Lymphocytes (%) (Auto) 24 12-44 % Monocytes (%) (Auto) 9 0-12 % Eosinophils (%) (Auto) 0 0-10 % Basophils (%) (Auto) 0 0-10 % Neutrophils # (Auto) 5.9 1.8-7.8 X 10^3 Lymphocytes # (Auto) 2.1 1.0-4.0 X 10^3 Monocytes # (Auto) 0.8 0.0-1.0 X 10^3 Eosinophils # (Auto) 0.0 0.0-0.3 10^3/uL Basophils # (Auto) 0.0 0.0-0.1 10^3/uL Sodium Level 141 135-145 MMOL/L Potassium Level 4.2 3.6-5.0 MMOL/L Chloride Level 107 98-107 MMOL/L Carbon Dioxide Level 18 L 21-32 MMOL/L Anion Gap 16 H 5-14 MMOL/L Blood Urea Nitrogen 16 7-18 MG/DL Creatinine 1.10 0.60-1.30 MG/DL Estimat Glomerular Filtration Rate > 60 BUN/Creatinine Ratio 15 Glucose Level 95 70-105 MG/DL Calcium Level 10.3 H 8.5-10.1 MG/DL Corrected Calcium 8.5-10.1 MG/DL Total Bilirubin 0.5 0.1-1.0 MG/DL Aspartate Amino Transf (AST/SGOT) 40 H 5-34 U/L Alanine Aminotransferase (ALT/SGPT) 45 0-55 U/L Alkaline Phosphatase 85 40-136 U/L Total Protein 8.4 H 6.4-8.2 GM/DL Albumin 4.7 H 3.2-4.5 GM/DL Serum Alcohol < 10 <10 MG/DL My Orders Orders - ALEJANDRO CROOKS Ed Iv/Invasive Line Start (01/26/20 21:10) Lactated Ringers (Lr 1000 Ml Iv Solution (01/26/20 21:10) Cbc With Automated Diff (01/26/20 21:10) Comprehensive Metabolic Panel (01/26/20 21:10) Ua Culture If Indicated (01/26/20 21:10) Drug Screen Stat (Urine) (01/26/20 21:10) Alcohol (01/26/20 21:10) Vital Signs/I&O 01/26/20 21:14 Temp 36.7 Pulse 85 Resp 16 B/P (MAP) 190/117 (141) Pulse Ox 97 O2 Delivery Room Air Capillary Refill : Progress Note #1: Time: 21:28 Progress Note The patient has already started 1 L of saline and were going to give him a second liter. We will get some urine and labs to make sure his kidney function looks okay. Based on his history of lots of caffeine long driving and being out in the sun a suspect he has just got some mild heat exhaustion. Progress Note #2: Time: 21:58 Progress Note Patient is feeling much better. He's received over a liter fluids. He has claimed her produce a urine specimen. He is ready to go home. Departure Impression Primary Impression: Exhaustion Additional Impression: Dehydration determined by examination Disposition: 01 HOME, SELF-CARE Condition: Stable Departure-Patient Inst. Decision time for Depature: 21:59 Referrals: JONO RODRÍGUEZ MD (PCP/Family) Primary Care Physician Patient Instructions: Dehydration, Adult (DC) Add. Discharge Instructions: Drink plenty of fluids. Sports drinks such as Gatorade or Powerade are encouraged. If you have a headache you can use Tylenol 1000 mg every 8 hours as necessary for pain. Scripts No Active Prescriptions or Reported Meds ALEJANDRO CROOKS Jan 26, 2020 21:13
[2020-01-26 21:19] LABS: BASOPHILS % (AUTO) 0 % (0-10); EOSINOPHILS % (AUTO) 0 % (0-10); HEMATOCRIT 45 % (40-54); HEMOGLOBIN 15.2 G/DL (13.3-17.7); LYMPHOCYTES # (AUTO) 2.1 X 10^3 (1.0-4.0); LYMPHOCYTES % (AUTO) 24 % (12-44); MEAN CORPUSCULAR HEMOGLOBIN 31 PG (25-34); MEAN CORPUSCULAR HGB CONC 34 G/DL (32-36); MEAN CORPUSCULAR VOLUME 93 FL (80-99); MEAN PLATELET VOLUME 12.8 FL (7.4-10.4); MONOCYTES # (AUTO) 0.8 X 10^3 (0.0-1.0); MONOCYTES % (AUTO) 9 % (0-12); NEUTROPHILS # (AUTO) 5.9 X 10^3 (1.8-7.8); NEUTROPHILS % (AUTO) 66 % (42-75); PLATELET COUNT 203 10^3/uL (130-400); RED CELL DISTRIBUTION WIDTH 14.3 % (10.0-14.5); WHITE BLOOD COUNT 8.9 10^3/uL (4.3-11.0)
[2020-01-26 21:33] LABS: ALBUMIN 4.7 GM/DL (3.2-4.5)
[2020-01-26 21:34] LABS: CHLORIDE 107 MMOL/L (98-107); POTASSIUM 4.2 MMOL/L (3.6-5.0); SODIUM 141 MMOL/L (135-145)
[2020-01-26 21:35] LABS: CALCIUM 10.3 MG/DL (8.5-10.1)
[2020-01-26 21:36] LABS: GLUCOSE 95 MG/DL (70-105); TOTAL PROTEIN 8.4 GM/DL (6.4-8.2)
[2020-01-26 21:37] LABS: CARBON DIOXIDE 18 MMOL/L (21-32)
[2020-01-26 21:38] LABS: BILIRUBIN,TOTAL 0.5 MG/DL (0.1-1.0)
[2020-01-26 21:39] LABS: ALKALINE PHOSPHATASE 85 U/L (40-136)
[2020-01-26 21:40] LABS: GFR ESTIMATED > 60
[2020-01-26 21:41] LABS: BUN/CREATININE RATIO 15
[2020-01-26 21:42] LABS: ALANINE AMINOTRANSFERASE 45 U/L (0-55)
--- NOTE | 2020-01-26 22:08 | NUR ---
STOPPED IVF AT THIS TIME.
[2020-01-26 22:11] VITALS: BP 152/104
[2020-01-26 22:15] LABS: BILIRUBIN,URINE NEGATIVE (NEGATIVE); CLARITY,URINE CLEAR; COLOR,URINE YELLOW; GLUCOSE, URINE (UA) NEGATIVE (NEGATIVE); KETONES,URINE NEGATIVE (NEGATIVE); LEUKOCYTE ESTERASE ,URINE NEGATIVE (NEGATIVE); NITRITE,URINE NEGATIVE (NEGATIVE); PROTEIN,URINE TRACE (NEGATIVE)
[2020-01-26 22:27] LABS: BACTERIA,URINE NEGATIVE /HPF; RBC,URINE RARE /HPF; SQUAMOUS EPITHELIAL CELL,UR RARE /HPF
[2020-01-26 22:29] LABS: AMPHETAMINE SCREEN, URINE NEGATIVE (NEGATIVE); BARBITURATE SCREEN URINE NEGATIVE (NEGATIVE); BENZODIAZEPINES SCREEN URINE NEGATIVE (NEGATIVE); CANNABINOID SCREEN, URINE NEGATIVE (NEGATIVE); COCAINE SCREEN URINE NEGATIVE (NEGATIVE); METHADONE STAT NEGATIVE (NEGATIVE); METHAMPHETAMINE SCREEN URINE S NEGATIVE (NEGATIVE); OPIATE SCREEN URINE NEGATIVE (NEGATIVE); OXYCODONE STAT NEGATIVE (NEGATIVE); PROPOXYPHENE STAT NEGATIVE (NEGATIVE); TRICYCLIC ANTIDEPRESSANTS SCRE NEGATIVE (NEGATIVE)
== END 2020-01-26 22:11 | disposition home or self-care (01) ==
LOC: EDUNIT# 21:02 → ER 21:03
DX: E86.0 Dehydration (principal); F17.210 Nicotine dependence, cigarettes, uncomplicated
CPT/HCPCS: 80053; 80306; 81000; 85025; 99284; G0480; 36415; 80320

== ENCOUNTER 2020-07-12 17:16 | Emergency (ER) | payer MEDICARE, MEDICAID ==
[~2020-07-12] VITALS: Ht 172.7 cm; Wt 70.3 kg
[2020-07-12 17:45] LABS: BASOPHILS % (AUTO) 0 % (0-10); EOSINOPHILS # (AUTO) 0.2 10^3/uL (0.0-0.3); EOSINOPHILS % (AUTO) 2 % (0-10); HEMATOCRIT 46 % (40-54); HEMOGLOBIN 15.3 g/dL (13.3-17.7); LYMPHOCYTES # (AUTO) 1.8 10^3/uL (1.0-4.0); LYMPHOCYTES % (AUTO) 26 % (12-44); MEAN CORPUSCULAR HEMOGLOBIN 31 pg (25-34); MEAN CORPUSCULAR HGB CONC 34 g/dL (32-36); MEAN CORPUSCULAR VOLUME 93 fL (80-99); MONOCYTES # (AUTO) 0.5 10^3/uL (0.0-1.0); MONOCYTES % (AUTO) 7 % (0-12); NEUTROPHILS # (AUTO) 4.4 10^3/uL (1.8-7.8); NEUTROPHILS % (AUTO) 64 % (42-75); PLATELET COUNT 222 10^3/uL (130-400); WHITE BLOOD COUNT 6.9 10^3/uL (4.3-11.0)
--- NOTE | 2020-07-12 17:47 | ED General ---
General Stated Complaint: LIGHTHEADED/DIZZINESS Source of Information: Patient Exam Limitations: No Limitations History of Present Illness Date Seen by Provider: Jul 12, 2020 Time Seen by Provider: 17:42 Initial Comments This is a well-appearing 39-year-old male who presents to the ER with complaints of burning in his throat, dizziness and lightheadedness approximately 30 minutes prior to arrival. No LOC. States he pulled over to rest and then drove himself to the ER to be evaluated. States he has had issues with feeling dizzy in the past, however his burning sensation in his throat is new. States he ate [place] food for lunch today, however this has never bothered him in the past. Denies any recent fevers, chills, cough, shortness of breath, chest pain, nausea, vomiting, diarrhea, or abdominal pain. Allergies and Home Medications Allergies Coded Allergies: No Known Drug Allergies (Unverified , 04/03/10) Home Medications No Active Prescriptions or Reported Meds Patient Home Medication List Home Medication List Reviewed: Yes Review of Systems Review of Systems Constitutional: see HPI EENTM: see HPI Respiratory: no symptoms reported Cardiovascular: no symptoms reported Gastrointestinal: no symptoms reported Genitourinary: no symptoms reported Musculoskeletal: no symptoms reported Skin: no symptoms reported Psychiatric/Neurological: No Symptoms Reported Hematologic/Lymphatic: No Symptoms Reported Immunological/Allergic: no symptoms reported Past Mhbhroh-Ufffjz-Ueeztk Hx Patient Social History Alcohol Beverage of Choice: Beer, Rum Type Used: Cigarettes Former Smoker, Quit: Apr 21, 2016 2nd Hand Smoke Exposure: Yes Recent Foreign Travel: No Contact w/Someone Who Travel: No Recent Hopitalizations: No Immunizations Up To Date Tetanus Booster (TDap): Unknown PED Vaccines UTD: Yes Seasonal Allergies Seasonal Allergies: No Past Medical History Surgeries: Yes (? CIRCUMCISION ? 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 oz. 72.612419nb; 24.00 BMI Method:Stated General Appearance: No Apparent Distress, WD/WN Eyes: Bilateral Eye Normal Inspection HEENT: PERRL/EOMI, TMs Normal, Normal ENT Inspection, Pharynx Normal Neck: Full Range of Motion, Normal Inspection, Non Tender, Supple Respiratory: Lungs Clear, Normal Breath Sounds, No Accessory Muscle Use Cardiovascular: Regular Rate, Rhythm, Normal Peripheral Pulses Gastrointestinal: Normal Bowel Sounds, Non Tender, Soft Back: Normal Inspection, No Vertebral Tenderness Neurologic/Psychiatric: Alert, Oriented x3, No Motor/Sensory Deficits, Normal Mood/Affect, home health care worker II-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 Norm as Tested Skin: Normal Color, Warm/Dry Progress/Results/Core Measures Suspected Sepsis SIRS Temperature: Pulse: Respiratory Rate: Laboratory Tests 07/12/20 17:35: White Blood Count 6.9 Blood Pressure / Mean: Laboratory Tests 07/12/20 17:35: Creatinine 0.92, Platelet Count 222, Total Bilirubin 0.4 Results/Orders Lab Results Laboratory Tests Test 07/12/20 17:35 07/12/20 17:38 07/12/20 18:06 Range/Units White Blood Count 6.9 4.3-11.0 10^3/uL Red Blood Count 4.89 4.30-5.52 10^6/uL Hemoglobin 15.3 13.3-17.7 g/dL Hematocrit 46 40-54 % Mean Corpuscular Volume 93 80-99 fL Mean Corpuscular Hemoglobin 31 25-34 pg Mean Corpuscular Hemoglobin Concent 34 32-36 g/dL Red Cell Distribution Width 13.2 10.0-14.5 % Platelet Count 222 130-400 10^3/uL Mean Platelet Volume 12.0 9.0-12.2 fL Immature Granulocyte % (Auto) 0 % Neutrophils (%) (Auto) 64 42-75 % Lymphocytes (%) (Auto) 26 12-44 % Monocytes (%) (Auto) 7 0-12 % Eosinophils (%) (Auto) 2 0-10 % Basophils (%) (Auto) 0 0-10 % Neutrophils # (Auto) 4.4 1.8-7.8 10^3/uL Lymphocytes # (Auto) 1.8 1.0-4.0 10^3/uL Monocytes # (Auto) 0.5 0.0-1.0 10^3/uL Eosinophils # (Auto) 0.2 0.0-0.3 10^3/uL Basophils # (Auto) 0.0 0.0-0.1 10^3/uL Immature Granulocyte # (Auto) 0.0 0.0-0.1 10^3/uL Sodium Level 139 135-145 MMOL/L Potassium Level 4.0 3.6-5.0 MMOL/L Chloride Level 103 98-107 MMOL/L Carbon Dioxide Level 27 21-32 MMOL/L Anion Gap 9 5-14 MMOL/L Blood Urea Nitrogen 13 7-18 MG/DL Creatinine 0.92 0.60-1.30 MG/DL Estimat Glomerular Filtration Rate > 60 BUN/Creatinine Ratio 14 Glucose Level 94 70-105 MG/DL Calcium Level 9.5 8.5-10.1 MG/DL Corrected Calcium 9.1 8.5-10.1 MG/DL Magnesium Level 2.1 1.6-2.4 MG/DL Total Bilirubin 0.4 0.1-1.0 MG/DL Aspartate Amino Transf (AST/SGOT) 31 5-34 U/L Alanine Aminotransferase (ALT/SGPT) 52 0-55 U/L Alkaline Phosphatase 76 40-136 U/L Troponin I < 0.028 <0.028 NG/ML Total Protein 7.7 6.4-8.2 GM/DL Albumin 4.5 3.2-4.5 GM/DL Glucometer 90 70-110 MG/DL Urine Color YELLOW Urine Clarity CLEAR Urine pH 7.0 5-9 Urine Specific [place] 1.020 1.016-1.022 Urine Protein NEGATIVE NEGATIVE Urine Glucose (UA) NEGATIVE NEGATIVE Urine Ketones NEGATIVE NEGATIVE Urine Nitrite NEGATIVE NEGATIVE Urine Bilirubin NEGATIVE NEGATIVE Urine Urobilinogen 0.2 < = 1.0 MG/DL Urine Leukocyte Esterase NEGATIVE NEGATIVE Urine RBC (Auto) NEGATIVE NEGATIVE Urine RBC 0-2 /HPF Urine WBC 0-2 /HPF Urine Crystals NONE /LPF Urine Bacteria TRACE /HPF Urine Casts NONE /LPF Urine Mucus NEGATIVE /LPF Urine Culture Indicated NO My Orders Orders - PARVIZ BE APRN Cbc With Automated Diff (07/12/20 17:24) Magnesium (07/12/20 17:24) Ekg Tracing (07/12/20 17:24) Comprehensive Metabolic Panel (07/12/20 17:24) Monitor-Rhythm Ecg Trace Only (07/12/20 17:24) Ed Iv/Invasive Line Start (07/12/20 17:24) Troponin I (07/12/20 17:24) Ua Culture If Indicated (07/12/20 17:24) Accucheck Stat ONCE (07/12/20 17:24) Ct Head Wo (07/12/20 17:53) Vital Signs/I&O Capillary Refill : Progress Note : Progress Note Upon arrival he is awake, alert, smiling and joking with staff. No focal or gross neurological deficits appreciated on exam. Initiated cardiac work-up and ordered non-contrast head CT. Labs reviewed and are unremarkable. Non-contrast head CT shows no acute findings. Offered Meclizine to try for dizziness, he declined at this time stating his symptoms were improved. Offered famotidine or GI cocktail for burning sensation, he refused stating he was ready to go home. Discussed following up with his primary care provider if symptoms return or persist. Also discussed return to ER for any new or concerning symptoms, verbalized understanding. ECG Initial ECG Impression Date: Jul 12, 2020 Initial ECG Impression Time: 17:45 Initial ECG Rate: 86 Initial ECG Rhythm: Normal Sinus Comment LV[facility] Diagnostic Imaging Diagonstic Imaging: CT Plain Films/CT/US/NM/MRI: head Comments NAME: RADHA MARIE [facility] REC#: [id number] PT STATUS: REG ER : 1980 PHYSICIAN: PARVIZ BE HYDROMETER CALIBRATOR ADMIT DATE: 07/12/20/ER Signed Date of Exam:07/12/20 CT HEAD WO PROCEDURE: CT head without contrast. TECHNIQUE: Multiple contiguous axial images were obtained through the brain without the use of intravenous contrast. Auto Exposure Controls were utilized during the CT exam to meet ALARA standards for radiation dose reduction. INDICATION: Dizziness and vertigo. FINDINGS: The ventricles and sulci are within normal limits. There is no hydrocephalus or cerebral edema. There is no midline shift or mass effect. There is no intracranial mass, hemorrhage, or extra-axial fluid collection. The visualized paranasal sinuses and mastoid air cells are clear. There are no regional areas of decreased attenuation appreciated to suggest an acute CVA. IMPRESSION: No acute intracranial abnormality. Dictated by: Dictated on workstation # [id number] Dict: 07/12/201809 Trans: 07/12/201832 [facility] [id number] Interpreted by: RADHA PEREZ MD Electronically signed by: RADHA PEREZ MD 07/12/201832 Departure Impression Primary Impression: Dizziness Additional Impression: Acid reflux Disposition: 01 HOME, SELF-CARE Condition: Improved Departure-Patient Inst. Decision time for Depature: 18:38 Referrals: JONO RODRÍGUEZ MD (PCP/Family) Primary Care Physician Patient Instructions: Vertigo (a Type of Dizziness) (DC), Acid Reflux and GERD in Adults (DC) Add. Discharge Instructions: Plan: 1. Discharge home. 2. May take Tylenol or Ibuprofen as needed for pain per package instructions. May take antacids as needed for acid reflux. 3. Follow up with your primary care provider if your symptoms persist. 4. Return for any new or concerning symptoms. Scripts No Active Prescriptions or Reported Meds PARVIZ BE HYDROMETER CALIBRATOR Jul 12, 2020 17:47
[2020-07-12 18:04] LABS: ALBUMIN 4.5 GM/DL (3.2-4.5)
[2020-07-12 18:05] LABS: CHLORIDE 103 MMOL/L (98-107); SODIUM 139 MMOL/L (135-145)
[2020-07-12 18:06] LABS: CALCIUM 9.5 MG/DL (8.5-10.1)
[2020-07-12 18:07] LABS: GLUCOSE 94 MG/DL (70-105); TOTAL PROTEIN 7.7 GM/DL (6.4-8.2)
[2020-07-12 18:08] LABS: CARBON DIOXIDE 27 MMOL/L (21-32)
[2020-07-12 18:09] LABS: BILIRUBIN,TOTAL 0.4 MG/DL (0.1-1.0)
[2020-07-12 18:10] LABS: ALKALINE PHOSPHATASE 76 U/L (40-136)
[2020-07-12 18:11] LABS: CREATININE SERUM 0.92 MG/DL (0.60-1.30); GFR ESTIMATED > 60
[2020-07-12 18:12] LABS: BUN/CREATININE RATIO 14
[2020-07-12 18:13] LABS: ALANINE AMINOTRANSFERASE 52 U/L (0-55)
[2020-07-12 18:14] LABS: MAGNESIUM 2.1 MG/DL (1.6-2.4)
--- NOTE | 2020-07-12 18:14 | Diagnostic Imaging Report ---
PROCEDURE: CT head without contrast. TECHNIQUE: Multiple contiguous axial images were obtained through the brain without the use of intravenous contrast. Auto Exposure Controls were utilized during the CT exam to meet ALARA standards for radiation dose reduction. INDICATION: Dizziness and vertigo. FINDINGS: The ventricles and sulci are within normal limits. There is no hydrocephalus or cerebral edema. There is no midline shift or mass effect. There is no intracranial mass, hemorrhage, or extra-axial fluid collection. The visualized paranasal sinuses and mastoid air cells are clear. There are no regional areas of decreased attenuation appreciated to suggest an acute CVA. IMPRESSION: No acute intracranial abnormality. Dictated by: Dictated on workstation # [id number]
[2020-07-12 18:16] LABS: BILIRUBIN,URINE NEGATIVE (NEGATIVE); CLARITY,URINE CLEAR; COLOR,URINE YELLOW; GLUCOSE, URINE (UA) NEGATIVE (NEGATIVE); KETONES,URINE NEGATIVE (NEGATIVE); LEUKOCYTE ESTERASE ,URINE NEGATIVE (NEGATIVE); NITRITE,URINE NEGATIVE (NEGATIVE); PROTEIN,URINE NEGATIVE (NEGATIVE)
[2020-07-12 18:27] LABS: BACTERIA,URINE TRACE /HPF; RBC,URINE 0-2 /HPF; WBC,URINE 0-2 /HPF
[2020-07-12 18:52] VITALS: BP 142/84
== END 2020-07-12 18:52 | disposition home or self-care (01) ==
LOC: EDUNIT# 17:16 → ER 17:18
DX: R42 Dizziness and giddiness (principal); K21.9 Gastro-esophageal reflux disease without esophagitis; Z87.891 Personal history of nicotine dependence
CPT/HCPCS: 36415; 70450; 80053; 81000; 82962; 83735; 84484; 85025; 93005; 93041

== ENCOUNTER 2020-11-19 21:19 | Emergency (ER) | payer MEDICARE, MEDICAID ==
[~2020-11-19] VITALS: Ht 172 cm; Wt 72.0 kg
[2020-11-19] MEDS ORDERED: fentaNYL INJ 100 MCG/2 ML AMP IVP ONE (21:30)
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
[2020-11-19] MEDS ORDERED: TETANUS,DIPTH,PERTUSS P/F (BOOSTRIX) 0.5 ML VIAL IM ONE (21:45)
[2020-11-19] MEDS ORDERED: morphine INJ 10 MG/ML 1ML (SYR OR VIAL) IVP STA (21:53)
--- NOTE | 2020-11-19 22:28 | Diagnostic Imaging Report ---
INDICATION: Trauma with right hip pain. EXAMINATION: AP pelvis and AP and lateral views of the right hip were obtained. FINDINGS: Patient is somewhat rotated. There is an acute fracture of the right femoral neck with moderate displacement and impaction. Remaining bony structures are intact. IMPRESSION: Acute right femoral neck fracture. Dictated by: Dictated on workstation # [id number]
[2020-11-19 22:38] VITALS: BP 162/115
[2020-11-23] MEDS ORDERED: HYDR-3817 PO (11:16)
[2020-11-23] MEDS ORDERED: ASPI325T32 PO (11:16)
== END 2020-11-19 22:38 | disposition short-term general hospital (02) ==
LOC: EDUNIT# 21:19 → ER 21:21
DX: S72.001A Fracture of unspecified part of neck of right femur, initial encounter for closed fracture (principal); S50.311A Abrasion of right elbow, initial encounter; I10 Essential (primary) hypertension; Z23 Encounter for immunization; Z87.891 Personal history of nicotine dependence; V19.9XXA Pedal cyclist (driver) (passenger) injured in unspecified traffic accident, initial encounter
CPT/HCPCS: 90715

== ENCOUNTER 2020-11-23 13:00 | Inpatient (IN) | payer MEDICARE, MEDICAID ==
[~2020-11-23] VITALS: Ht 172 cm; Wt 73.0 kg
[2020-11-23 13:00] VITALS: BP 134/82
[~2020-11-23 13:00] MED LIST changes: +ACETAMINOPHEN 325 MG TABLET PO PRN; +ASPI325T32 PO; +BISACODYL 10 MG SUPP (DULCOLAX) PR PRN; +CALCIUM CARBONATE 500 MG (TUMS) TAB.CHEW PO PRN; +DOCUSATE SODIUM 100 MG (COLACE) CAP PO PRN; +ENOXAPARIN 40 MG/0.4 ML (LOVENOX) SYR SC SCH; +FLEET ENEMA ADULT 1 EA BTL PR PRN; +HYDR-3817 PO; +HYDROcodone/APAP 5 MG/325 MG (LORTAB) TAB PO PRN; +LACTULOSE SYRUP 10GM/15ML (ENULOSE) 30ML UDC PO PRN; +LOPERAMIDE 2 MG (IMODIUM) TABLET PO PRN; +MELATONIN 3 MG TABLET PO PRN; +ONDANSETRON 4 MG (ZOFRAN) ORAL DISSOLVE TAB PO PRN; +diphenhydrAMINE 25 MG TAB (BENADRYL) PO PRN; +guaiFENesin/CODEINE (ROBITUSSIN AC) 10ML UDC PO PRN
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
[2020-11-23] MEDS ORDERED: lisINopril 10 MG (PRINIVIL) TABLET PO ONE (13:45)
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
[2020-11-23] MEDS: DOCUSATE SODIUM 100 MG (COLACE) CAP PO SCH ×2 (15:56→21:00)
[2020-11-23] MEDS: polyethylene glycoL POWDER 17 GM (MIRALAX) PACK PO SCH ×2 (15:57→21:00)
[2020-11-23] MEDS: SENNA W/DOCUSATE (SENOKOT S) TABLET PO SCH ×2 (16:05→21:00)
[2020-11-23 16:14] VITALS: BP 140/90
[2020-11-23] MEDS: ENOXAPARIN 40 MG/0.4 ML (LOVENOX) SYR SC SCH (16:17)
[2020-11-23] MEDS: lisINopril 10 MG (PRINIVIL) TABLET PO SCH (16:17)
[2020-11-23] MEDS: HYDROcodone/APAP 7.5 MG/325 MG (LORTAB, LORCET PLUS) TABLET PO PRN (16:18)
[2020-11-23 20:00] VITALS: BP 148/79
[2020-11-24 06:52] LABS: BASOPHILS % (AUTO) 1 % (0-10); EOSINOPHILS # (AUTO) 0.4 10^3/uL (0.0-0.3); EOSINOPHILS % (AUTO) 6 % (0-10); HEMATOCRIT 46 % (40-54); HEMOGLOBIN 14.9 g/dL (13.3-17.7); LYMPHOCYTES # (AUTO) 1.4 10^3/uL (1.0-4.0); LYMPHOCYTES % (AUTO) 20 % (12-44); MEAN CORPUSCULAR HEMOGLOBIN 31 pg (25-34); MEAN CORPUSCULAR HGB CONC 32 g/dL (32-36); MEAN CORPUSCULAR VOLUME 95 fL (80-99); MEAN PLATELET VOLUME 12.2 fL (9.0-12.2); MONOCYTES # (AUTO) 0.6 10^3/uL (0.0-1.0); MONOCYTES % (AUTO) 8 % (0-12); NEUTROPHILS # (AUTO) 4.6 10^3/uL (1.8-7.8); NEUTROPHILS % (AUTO) 65 % (42-75); PLATELET COUNT 216 10^3/uL (130-400); WHITE BLOOD COUNT 7.1 10^3/uL (4.3-11.0)
[2020-11-24 07:14] LABS: CHLORIDE 102 MMOL/L (98-107); POTASSIUM 3.8 MMOL/L (3.6-5.0); SODIUM 142 MMOL/L (135-145)
[2020-11-24 07:15] LABS: CALCIUM 9.7 MG/DL (8.5-10.1)
[2020-11-24] MEDS: HYDROcodone/APAP 7.5 MG/325 MG (LORTAB, LORCET PLUS) TABLET PO PRN ×3 (07:15→22:07)
[2020-11-24 07:16] LABS: GLUCOSE 109 MG/DL (70-105); TOTAL PROTEIN 7.3 GM/DL (6.4-8.2)
[2020-11-24 07:17] LABS: CARBON DIOXIDE 33 MMOL/L (21-32)
[2020-11-24 07:18] LABS: BILIRUBIN,TOTAL 0.8 MG/DL (0.1-1.0)
[2020-11-24 07:19] LABS: ALKALINE PHOSPHATASE 101 U/L (40-136)
[2020-11-24 07:20] LABS: CREATININE SERUM 0.86 MG/DL (0.60-1.30); GFR ESTIMATED > 60
[2020-11-24 07:21] LABS: BUN/CREATININE RATIO 19
[2020-11-24 07:22] LABS: ALANINE AMINOTRANSFERASE 99 U/L (0-55)
[2020-11-24 08:00] VITALS: BP 138/88
--- NOTE | 2020-11-24 08:37 | Occupational Ther Daily Note ---
OT Current Status-Daily Note Subjective Pt seated in recliner, agreeable to OT Tx. /10 pain in R hip. Mental Status/Objective Patient Orientation: Person, Place, Situation ADL-Treatment Therapy Code Descriptions/Definitions Functional [place] Measure: 0=Not Assessed/NA 4=Minimal Assistance 1=Total Assistance 5=Supervision or Setup 2=Maximal Assistance 6=Modified [place] 3=Moderate Assistance 7=Complete IndependenceSCALE: Activities may be completed with or without assistive devices. 3-Bmebdyfkxr-uoslrie completes the activity by him/herself with no assistance from a helper. 5-Set-up or Clean-up Assistance-helper sets up or cleans up; patient completes activity. [place] assists only prior to or following the activity. 4-Supervision or Touching Assistance-helper provides verbal cues and/or touching/steadying and/or contact guard assistance as patient completes activity. Assistance may be provided throughout the activity or intermittently. 3-Partial/Moderate Assistance-helper does LESS THAN HALF the effort. [place] lifts, holds or supports trunk or limbs, but provides less than half the effort. 2-Substantial/Maximal Assistance-helper does MORE THAN HALF the effort. [place] lifts or holds trunk or limbs and provides more than half the effort. 1-Xywpvtqyb-ivwzhh does ALL the effort. Patient does none of the effort to co mplete the activity. Or, the assistance of 2 or more helpers is required for the patient to complete the activity. If activity was not attempted, code reason: 7-Patient Refused. 9-Not Applicable-not attempted and the patient did not perform the activity before the current illness, exacerbation or injury. 10-Not Attempted due to Environmental Limitations-(lack of equipment, weather restraints, etc.). 88-Not Attempted due to Medical Conditions or Safety Concerns. Eating (QC): 6 (Per pt report) Upper Body Dressing (QC): 5 (set up) Lower Body Dressing (QC): 4 (SBA in stand at FWW with clothing management) On/Off Footwear: 3 (Pt required assistance donning tedhose, able to don socks and shoe with set up assist) Other Treatment [id number] OT tx: Pt seated in recliner, donned clothes as outlined above. He used FWW to transfer to w/c, hopping on L foot while maintaining NWB status RLE, SBA. Pt propelled w/c to therapy gym. In order to increase BUE strength and activity tolerance, pt completed x15 mins on arm bike, mod resistance, rest breaks as needed. [id number] OT/PT cotreat due to skill of 2 clinicians required which a special effects technician could not perform in order to focus on higher level balance tasks and coordinate UE/LEs. OT focused on UE placement, cues for sequencing and safety while PT assisted with transfers/dynamic standing balance. Pt stood at parallel bars, hitting balloon back and forth with OT, all planes. While standing, pt kept one hand on bar at all time to assist with balance, unable to let go with both hands and maintain balance. Pt completed x2 trials with rest break between. After standing for several minutes, pt reports pain in R hip, states desire to put foot on floor but complies with NWB. No LOB noted with task, SBA provided throughout activity. Post tx, pt with PT, all needs met. Education OT Patient Education: Correct positioning, Energy conservation, Exercise program, Modified ADL techniques, Progress toward Goal/Update tx plan, Purpose of tx/functional activities Teaching Recipient: Patient Teaching Methods: Discussion Response to Teaching: Verbalize Understanding OT Short Term Goals Short Term Goals Time Frame: November 30, 2020 Toileting hygiene: 5 Shower/bathe self: 4 Lower body dressin Putting on/taking off footwear: 5 OT Senior Living Goals Senior Living Goals Time Frame: December 09, 2020 Eating (QC): 6 Oral Hygiene (QC): 6 Toileting Hygiene (QC): 6 Shower/Bathe Self (QC): 6 Upper Body Dressing (QC): 6 Lower Body Dressing (QC): 6 On/Off Footwear (QC): 6 Additional Goals: 1-Demonstrate ADL Tasks, 2-Verbalize Understanding, 3- ImproveStrength/El 1=Demonstrate adherence to instructed precautions during ADL tasks. 2=Patient will verbalize/demonstrate understanding of assistive devices/modifications for ADL. 3=Patient will improve strength/tolerance for activity to enable patient to perform ADL's. OT Education/Plan Problem List/Assessment Assessment: Decreased Activ Tolerance, Decreased UE Strength, Impaired Funct Balance, Impaired I ADL's, Impaired Self-Care Skills Discharge Recommendations Plan/Recommendations: Continue POC Treatment Plan/Plan of Care Patient would benefit from OT for education, treatment and training to promote independence in ADL's, mobility, safety and/or upper extremity function for ADL's. Plan of Care: ADL Retraining, Functional Mobility, UE Funct Exercise/Act Treatment Duration: December 09, 2020 Frequency: At least 5 of 7 days/Wk (IRF) Estimated Hrs Per Day: 1.5 hours per day Rehab Potential: Good Time/GCodes Start Time: 08:00 Stop Time: 09:15 Total Time Billed (hr/min): 75 Billed Treatment Time 1, ADL 2 (25'), EX (20'), FA 2 (30') GAYATHRI NIELSON OT November 24, 2020 08:37
--- NOTE | 2020-11-24 09:43 | PM&R Progress Note ---
Subjective HPI/CC On Admission Date Seen by Provider: November 24, 2020 Time Seen by Provider: 10:00 Subjective/Events-last exam 11/24/20: Pt doing very well Participating in therapy Refused the dressing change but the dressing looks good Bowels moved yesterday Checked meds and labs Review of Systems General: Fatigue, Malaise Musculoskeletal: leg pain Objective Exam Vital Signs Vital Signs Date Time Temp Pulse Resp B/P (MAP) Pulse Ox O2 Delivery O2 Flow Rate FiO2 11/24/20 22:37 36.2 11/24/20 21:00 93 Room Air 11/24/20 20:00 71 20 135/70 (91) Capillary Refill : General Appearance: No Apparent Distress, WD/WN HEENT: PERRL/EOMI, Normal ENT Inspection, Pharynx Normal Neck: Full Range of Motion, Normal Inspection, Non Tender, Supple, Carotid Bruit Respiratory: Chest Non Tender, Lungs Clear, Normal Breath Sounds, No Accessory Muscle Use, No Respiratory Distress Cardiovascular: Regular Rate, Rhythm, No Edema, No Gallop, No JVD, No Murmur, Normal Peripheral Pulses Gastrointestinal: Normal Bowel Sounds, No Organomegaly, No Pulsatile Mass, Non Tender, Soft Back: Normal Inspection, No CVA Tenderness, No Vertebral Tenderness Extremity: Normal Capillary Refill, Normal Inspection, Normal Range of Motion (except right leg), Non Tender, No Calf Tenderness, No Pedal Edema Neurologic/Psychiatric: Alert, Oriented x3, No Motor/Sensory Deficits, Normal Mood/Affect, Abnormal Gait, Motor Weakness (right leg 3/5) Skin: Normal Color, Warm/Dry Lymphatic: No Adenopathy Results/Procedures Lab Laboratory Tests 11/24/20 06:41 Patient resulted labs reviewed. FIM Transfers Therapy Code Descriptions/Definitions Functional [place] Measure: 0=Not Assessed/NA 4=Minimal Assistance 1=Total Assistance 5=Supervision or Setup 2=Maximal Assistance 6=Modified [place] 3=Moderate Assistance 7=Complete IndependenceSCALE: Activities may be completed with or without assistive devices. 9-Uojyrahayo-ttnzzgl completes the activity by him/herself with no assistance from a helper. 5-Set-up or Clean-up Assistance-helper sets up or cleans up; patient completes activity. [place] assists only prior to or following the activity. 4-Supervision or Touching Assistance-helper provides verbal cues and/or touching/steadying and/or contact guard assistance as patient completes activity. Assistance may be provided throughout the activity or intermittently. 3-Partial/Moderate Assistance-helper does LESS THAN HALF the effort. [place] lifts, holds or supports trunk or limbs, but provides less than half the effort. 2-Substantial/Maximal Assistance-helper does MORE THAN HALF the effort. [place] lifts or holds trunk or limbs and provides more than half the effort. 1-Uyoyybaqy-ongwwu does ALL the effort. Patient does none of the effort to complete the activity. Or, the assistance of 2 or more helpers is required for the patient to complete the activity. If activity was not attempted, code reason: 7-Patient Refused. 9-Not Applicable-not attempted and the patient did not perform the activity before the current illness, exacerbation or injury. 10-Not Attempted due to Environmental Limitations-(lack of equipment, weather restraints, etc.). 88-Not Attempted due to Medical Conditions or Safety Concerns. Roll Left to Right (QC): 3 Sit to Lying (QC): 3 (assist with right LE due to pain and weakness. ) Sit to Stand (QC): 4 (CGA with skilled cues for sequencing. ) Chair/Arx-hh-Mgrwr Xfer(QC): 4 (FWW) Car Transfer (QC): 3 (min assist for right LE ) Gait Training Does the Patient Walk?: Yes Walk 10 feet (QC): 4 (CGA for balance and safety) Walk 50 ft with 2 Turns(QC): 88 Walk 150 ft (QC): 88 Walking 10ft/uneven surface-QC: 88 Gait Assistive Device: FWW Wheelchair Training Does the Pt Use a Wheelchair?: Yes Distance: 150 ft Wheel 50 ft with 2 turns (QC): 6 Wheel 150 ft (QC): 6 Type of Wheelchair: Manual Stair Training 1 Step (curb) (QC): 88 (approached curb step and pt attempted but was unable to safely attempt to hop up the step. ) 4 Steps (QC): 88 12 Steps (QC): 88 Balance Picking up an Object (QC): 88 ADL-Treatment Eating (QC): 6 (Per pt report) Oral Hygiene (QC): 6 (IND seated at sink) Shower/Bathe Self (QC): 3 (Sponge bath complete, Min A with lower legs/feet. CGA in stand as pt washed buttocks/periarea) Upper Body Dressing (QC): 5 (set up) Lower Body Dressing (QC): 4 (SBA in stand at FWW with clothing management) On/Off Footwear (QC): 3 (Pt required assistance donning tedhose, able to don socks and shoe with set up assist) Toileting Hygiene (QC): 4 (Based on clincial judgement, pt would require CGA with clothing management and hygiene) Assessment/Plan Assessment and Plan Assess & Plan/Chief Complaint Assessment: s/p right hip fracture Developmental delay HTN HLP Plan: Pain control Monitor closely IRF protocol 11/24/20: Monitor pain IRF protocol (1) Hip fracture, right Status: Acute AUGUSTINE CARLIN DO November 24, 2020 09:43
--- NOTE | 2020-11-24 09:43 | Individualized Plan of Care ---
Individualized Plan of Care Rehab Nursing IPOC Order Admission Date November 23, 2020 at 13:00 Current Orders Orders Admission Order(Inpt,Obs,Sdc) (11/23/20 06:13) Vital Signs: Per Unit Policy ( (11/23/20 06:13) Khurram Emilianomajo (11/23/20 06:13) Sequential Compression Device .admit (11/23/20 06:13) Polygraph Operator-Inpt Rehab Con (11/23/20 06:13) Rehab Nursing Orders-Ipoc (11/23/20 06:13) Physical Therapy Rehab Orders (11/23/20 06:13) Occupational Therapy Rehab Ord (11/23/20 06:13) Speech Therapy Rehab Orders (11/23/20 06:13) Cbc With Automated Diff (11/24/20 06:00) Comprehensive Metabolic Panel (11/24/20 06:00) Precautions (Aru) (11/23/20 06:13) Rehab-Intensity Of Therapy (11/23/20 06:13) Initiate Admission Nursing Pro .admission (11/23/20 06:13) Acetaminophen Tablet/Caplet (Tylenol T (11/23/20 06:15) Alprazolam Tablet (Xanax Tablet) (11/23/20 06:15) Calcium Carbonate Chew Tablet (Antacid C (11/23/20 06:15) Diphenhydramine Tablet (Benadryl Tablet) (11/23/20 06:15) Docusate Sodium Capsule (Colace Capsule) (11/23/20 09:00) Docusate Sodium Capsule (Colace Capsule) (11/23/20 06:15) Bisacodyl Suppository (Dulcolax Supposit (11/23/20 06:15) Lactulose Oral Solution (Enulose Oral So (11/23/20 06:15) Na Phos/Na Biphos Enema (Fleet Enema Salvatore (11/23/20 06:15) Guaifenesin/Codeine Syrup (Robitussin Ac (11/23/20 06:15) Loperamide Tablet (Imodium Tablet) (11/23/20 06:15) Enoxaparin Injection (Lovenox Injection) (11/23/20 06:15) Melatonin Tablet (Melatonin Tablet) (11/23/20 06:15) Polyethylene Glycol Powder Pkt (Miralax (11/23/20 09:00) Ondansetron Oral Dissolve Tab (Zofran (11/23/20 06:15) Senna S Tablet (Senokot S Tablet) (11/23/20 09:00) Initiate Admission Nursing Pro .admission (11/23/20 06:13) Admission Arrival Bed Request (11/23/20 13:18) Aspirin Enteric Coated Tablet (Ecotrin T (11/24/20 09:00) Hydrocodone/Apap 7.5/325 Tab (Lortab 7. (11/23/20 13:45) Lisinopril Tablet (Zestril Tablet) (11/23/20 13:45) Amlodipine Tablet (Norvasc Tablet) (11/24/20 09:00) General/Regular (11/23/20 Lunch) Patient Visit (11/23/20 ) Functional Activities, Ea 15 (11/23/20 ) Pt Eval High Complexity (11/23/20 ) Enoxaparin Injection (Lovenox Injection) (11/23/20 16:00) Lisinopril Tablet (Zestril Tablet) (11/23/20 16:00) Patient Visit (11/24/20 ) Gait Training, Ea 15 Min (11/24/20 ) Functional Activities, Ea 15 (11/24/20 ) Exercise Therap, Ea 15 Min (11/24/20 ) Patient Visit (11/24/20 ) Speech Sound Lang Comp (11/24/20 ) Patient Visit (11/24/20 ) Functional Activities, Ea 15 (11/24/20 ) Rehab Nursing Orders: Ongoing Assess. of Cognitive Status, Ongoing Assess. of Function Status, Bladder Management, Bladder Scan, Bladder Training, Bowel Management, Bowel Training, Disease Management & Educaiton, DVT Prophylaxis, Fall Prevention, Fluid/Electrolyte/Nutrition Mgmt, Infection Prevention, Medication Management & Education, Management of Risks & Complications, Nutrition Management, Pain Management, Patient/Family Support, Safety Management Intensity of Therapy to be met Patient to be seen: Min.3h per day/5 of 7d PT IPOC Problem List: Activity Tolerance, Functional Strength, Safety, Balance, Gait, Transfer, Bed Mobility Treatment Plan: Continue Plan of Care Bed Mobility, Education, Functional Activity El, Functional Strength, Group Therapy, Gait, Safety, Therapeutic Exercise, Transfers Treatment Duration: December 14, 2020 Frequency: At least 5 of 7 days/Wk (IRF) Estimated Hrs Per Day: 1.5 hours per day OT IPOC Problems: Decreased Activ Tolerance, Decreased UE Strength, Impaired Funct Balance, Impaired I ADL's, Impaired Self-Care Skills OT Treatment, Training and Edu: Yes Plan of Care: ADL Retraining, Functional Mobility, UE Funct Exercise/Act Treatment Duration: December 09, 2020 Frequency: At least 5 of 7 days/Wk (IRF) Estimated Hrs Per Day: 1.[address] IPOC Speech Therapy Treatment Plan: Modify Plan, See Comments Treatment Duration: November 24, 2020 Frequency: Modified Program (IRF) Estimated Hrs Per Day: Other Polygraph Operator/Case Mgmt Polygraph Operator/Case Managemen: Discharge Planning Dietitian/Dry Molder Dietitian/Dry Molder to monitor nutritional status and make changes and/or recommendations as needed and work with speech pathology on dietary upgrades as the occur. Physician IPOC Medical Issues being managed closely and that require the 24 hour availability of a physician: Recent hip fracture with h/o untreated HTN with intellectual delay will need close monitoring for decompensation Medical Issues: Bowel/Bladder Function, DVT Prophylaxis, Falls Precautions, Fluid/Electrolyte/Nutrition Balance, Pain Management Brief Synthesis of Preadmission Screen, Post-Admission Evaluation, and Therapy Evaluations: PT OT will focus on regaining function with ambulation and independence in ADL's Medical Prognosis: Good Anticipated Length of Stay: 7 days AUGUSTINE CARLIN DO November 24, 2020 09:43
--- NOTE | 2020-11-24 10:17 | Physical Therapy Daily Note ---
PT Daily Note-Current Subjective Pt sitting in Therapy Gym working with OT upon arrival. PT agrees for short PT/OT co-treat to test functional balance. Pain Numeric Pain Scale: 6 Location: Right Location Body Site: Hip Pain Description: Tightness, Sharp Mental Status Patient Orientation: Person, Place, Time, Situation Pt demonstrates some mild cognitive delays that are long standing and lead to occasional impulsivity. Transfers SCALE: Activities may be completed with or without assistive devices. 7-Xknzhwmpzc-rqeaqkd completes the activity by him/herself with no assistance from a helper. 5-Set-up or Clean-up Assistance-helper sets up or cleans up; patient completes activity. [place] assists only prior to or following the activity. 4-Supervision or Touching Assistance-helper provides verbal cues and/or touching/steadying and/or contact guard assistance as patient completes activity. Assistance may be provided throughout the activity or intermittently. 3-Partial/Moderate Assistance-helper does LESS THAN HALF the effort. [place] li fts, holds or supports trunk or limbs, but provides less than half the effort. 2-Substantial/Maximal Assistance-helper does MORE THAN HALF the effort. [place] lifts or holds trunk or limbs and provides more than half the effort. 0-Pjzjsuolb-vfgjms does ALL the effort. Patient does none of the effort to complete the activity. Or, the assistance of 2 or more helpers is required for the patient to complete the activity. If activity was not attempted, code reason: 7-Patient Refused. 9-Not Applicable-not attempted and the patient did not perform the activity before the current illness, exacerbation or injury. 10-Not Attempted due to Environmental Limitations-(lack of equipment, weather restraints, etc.). 88-Not Attempted due to Medical Conditions or Safety Concerns. Sit to Stand (QC): 5 Toilet Transfer (QC): 5 Weight Bearing Right Lower Extremity: Right Non Weight Bearing Left Lower Extremity: Left Full Weight Bearing Gait Training Does the Patient Walk?: Yes Distance: 150' Walk 10 feet (QC): 5 Walk 50 ft with 2 Turns(QC): 5 Walk 150 ft (QC): 5 Gait Persons Needed: 1 Gait Assistive Device: FWW Pt adheres to NWB on R LE well w/no VC needed. Treatments [id number] OT/PT cotreat due to skill of 2 clinicians required which a rehabilitation program manager could not perform in order to focus on higher level balance tasks and coordinate UE/LEs. OT focused on UE placement, cues for sequencing and safety while PT assisted with transfers/dynamic standing balance. Pt stood at parallel bars, hitting balloon back and forth with OT, all planes. While standing, pt kept one hand on bar at all time to assist with balance, unable to let go with both hands and maintain balance. Pt completed x2 trials with rest break between. After standing for several minutes, pt reports pain in R hip, states desire to put foot on floor but complies with NWB. No LOB noted with task, SBA provided throughout activity. [id number]: Pt asks to return to room to use BR. Pt then return to recliner to rest. All needs met,call light in hand. Assessment Current Status: Good Progress Pt's functional balance is good and further co-treating will not be necessary. Pt needs VC at times to stay on task. PT Short Term Goals Short Term Goals Time Frame: November 30, 2020 Sit to lyin Lying to sitting on side of be: 4 Sit to stand: 5 Chair/pzt-ol-lbgyc transfer: 5 Walk 50 feet with two turns: 4 PT Cylinder Honer Goals Cylinder Honer Goals PT Cylinder Honer Goals Time Frame: December 14, 2020 Roll Left & Right (QC): 6 Sit to Lying (QC): 6 Lying-Sitting on Side/Bed(QC): 6 Sit to Stand (QC): 6 Chair/Pnp-gz-Stdeq Xfer(QC): 6 Toilet Transfer (QC): 6 Car Transfer (QC): 6 Does the Patient Walk: Yes Walk 10 feet (QC): 6 Walk 50ft with 2 Turns (QC): 6 Walk 150 ft (QC): 6 Walking 10ft on Uneven Surface: 6 1 Step (curb) (QC): 6 4 Steps (QC): 6 12 Steps (QC): 88 Picking up an Object (QC): 88 Wheel 50 feet with 2 turns (QC: 6 Wheel 150 feet: 6 PT Plan Problem List Problem List: Safety Treatment/Plan Treatment Plan: Continue Plan of Care Treatment Plan: Bed Mobility, Education, Functional Activity El, Functional Strength, Group Therapy, Gait, Safety, Therapeutic Exercise, Transfers Treatment Duration: December 14, 2020 Frequency: At least 5 of 7 days/Wk (IRF) Estimated Hrs Per Day: 1.5 hours per day Patient and/or Family Agrees t: Yes Safety Risks/Education Patient Education: Issued Written HEP Teaching Recipient: Patient Teaching Methods: Demonstration, Discussion Response to Teaching: Verbalize Understanding, Return Demonstration Time/GCodes Time In: 845 Time Out: 930 Total Billed Treatment Time: 45 Total Billed Treatment 1, GT (15m), FA (15m) & EX (15m) Co-treat w/OT for 30m ([id number]) DARIUSZ BANKS WOMEN'S APPAREL SALESPERSON November 24, 2020 10:17
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
[2020-11-24] MEDS: DOCUSATE SODIUM 100 MG (COLACE) CAP PO SCH ×2 (11:18→19:31)
[2020-11-24] MEDS: polyethylene glycoL POWDER 17 GM (MIRALAX) PACK PO SCH ×2 (11:18→19:31)
[2020-11-24] MEDS: SENNA W/DOCUSATE (SENOKOT S) TABLET PO SCH ×2 (11:18→19:31)
[2020-11-24] MEDS: amLODIPine 2.5MG (NORVASC) TAB PO SCH (11:21)
[2020-11-24] MEDS: lisINopril 10 MG (PRINIVIL) TABLET PO SCH (11:21)
[2020-11-24] MEDS: ASPIRIN E.C. 325 MG (ECOTRIN) TABLET PO SCH (11:21)
--- NOTE | 2020-11-24 15:44 | Physical Therapy Daily Note ---
PT Daily Note-Current Subjective Pt sitting in recliner upon arrival. Pt agrees to PT. Pain Numeric Pain Scale: 10-Worst Possible Pain Location: Right Location Body Site: Hip Pain Description: Tightness, Sharp Mental Status Patient Orientation: Person, Place, Time, Situation Transfers SCALE: Activities may be completed with or without assistive devices. 1-Rvxjwgxflk-uqqnufd completes the activity by him/herself with no assistance from a helper. 5-Set-up or Clean-up Assistance-helper sets up or cleans up; patient completes activity. [place] assists only prior to or following the activity. 4-Supervision or Touching Assistance-helper provides verbal cues and/or touching/steadying and/or contact guard assistance as patient completes activity. Assistance may be provided throughout the activity or intermittently. 3-Partial/Moderate Assistance-helper does LESS THAN HALF the effort. [place] lifts, holds or supports trunk or limbs, but provides less than half the effort. 2-Substantial/Maximal Assistance-helper does MORE THAN HALF the effort. [place] lifts or holds trunk or limbs and provides more than half the effort. 0-Ikqsfprmt-hmekmu does ALL the effort. Patient does none of the effort to complete the activity. Or, the assistance of 2 or more helpers is required for the patient to complete the activity. If activity was not attempted, code reason: 7-Patient Refused. 9-Not Applicable-not attempted and the patient did not perform the activity before the current illness, exacerbation or injury. 10-Not Attempted due to Environmental Limitations-(lack of equipment, weather restraints, etc.). 88-Not Attempted due to Medical Conditions or Safety Concerns. Sit to Stand (QC): 5 Toilet Transfer (QC): 5 Weight Bearing Right Lower Extremity: Right Non Weight Bearing Left Lower Extremity: Left Full Weight Bearing Gait Training Does the Patient Walk?: Yes Distance: 15' x2 Walk 10 feet (QC): 5 Gait Persons Needed: 1 Gait Assistive Device: FWW Wheelchair Training Does the Pt Use a Wheelchair?: Yes Wheel 50 ft with 2 turns (QC): 5 Wheel 150 ft (QC): 5 Type of Wheelchair: Manual Exercises Supine Ex: Ankle pumps, Quad Set, Glut sets, Heel Slides, Short Arc Quads, Straight leg raise, Hip abd/add Supine Reps: 15 Seated Therapy Exercises: Ankle pumps, Long arc quads, Hip flexion, Hip abd/add Seated Reps: 15 Treatments Pt asks to use BR before going outside for some fresh air and cousin meets outside. Pt reviews written HEP for Supine & Seated EX. Pt returns to room to rest in recliner at end of tx, all need met with call light in hand. Assessment Current Status: Good Progress Pt still needs VC for occasional safety/social awareness deficits. Pt lacks insight into current situation and recovery time. PT Short Term Goals Short Term Goals Time Frame: November 30, 2020 Sit to lyin Lying to sitting on side of be: 4 Sit to stand: 5 Chair/ryl-bw-jfdcj transfer: 5 Walk 50 feet with two turns: 4 PT Usp Goals Usp Goals PT Drug Abuse Treatment Specialist Goals Time Frame: December 14, 2020 Roll Left & Right (QC): 6 Sit to Lying (QC): 6 Lying-Sitting on Side/Bed(QC): 6 Sit to Stand (QC): 6 Chair/Qqz-gp-Dbxiy Xfer(QC): 6 Toilet Transfer (QC): 6 Car Transfer (QC): 6 Does the Patient Walk: Yes Walk 10 feet (QC): 6 Walk 50ft with 2 Turns (QC): 6 Walk 150 ft (QC): 6 Walking 10ft on Uneven Surface: 6 1 Step (curb) (QC): 6 4 Steps (QC): 6 12 Steps (QC): 88 Picking up an Object (QC): 88 Wheel 50 feet with 2 turns (QC: 6 Wheel 150 feet: 6 PT Plan Problem List Problem List: Safety Treatment/Plan Treatment Plan: Continue Plan of Care Treatment Plan: Bed Mobility, Education, Functional Activity El, Functional Strength, Group Therapy, Gait, Safety, Therapeutic Exercise, Transfers Treatment Duration: December 14, 2020 Frequency: At least 5 of 7 days/Wk (IRF) Estimated Hrs Per Day: 1.5 hours per day Patient and/or Family Agrees t: Yes Safety Risks/Education Patient Education: Issued Written HEP, Safety Issues Teaching Recipient: Patient Teaching Methods: Discussion Response to Teaching: Reinforcement Needed Time/GCodes Time In: 1315 Time Out: 1355 Total Billed Treatment Time: 40 Total Billed Treatment 1, FA x3 (40m) DARIUSZ BANKS SPORTS EQUIPMENT REPAIRER November 24, 2020 15:44
[2020-11-24] MEDS: ENOXAPARIN 40 MG/0.4 ML (LOVENOX) SYR SC SCH (16:01)
[2020-11-24 20:00] VITALS: BP 135/70
--- NOTE | 2020-11-25 06:18 | PM&R Progress Note ---
Subjective HPI/CC On Admission Date Seen by Provider: November 25, 2020 Time Seen by Provider: 12:30 Subjective/Events-last exam 11/25/2020: Patient doing pretty well today Did not really want a work with therapy Bowels are moving pretty well Blood pressure is actually low so holding blood pressure medication for systolic less than 130 11/24/20: Pt doing very well Participating in therapy Refused the dressing change but the dressing looks good Bowels moved yesterday Checked meds and labs Review of Systems Musculoskeletal: leg pain Objective Exam Vital Signs Vital Signs Date Time Temp Pulse Resp B/P (MAP) Pulse Ox O2 Delivery O2 Flow Rate FiO2 11/25/20 09:00 92 Room Air 11/25/20 08:00 36.0 58 16 109/64 (79) Capillary Refill : General Appearance: No Apparent Distress, WD/WN HEENT: PERRL/EOMI, Normal ENT Inspection, Pharynx Normal Neck: Full Range of Motion, Normal Inspection, Non Tender, Supple, Carotid Bruit Respiratory: Chest Non Tender, Lungs Clear, Normal Breath Sounds, No Accessory Muscle Use, No Respiratory Distress Cardiovascular: Regular Rate, Rhythm, No Edema, No Gallop, No JVD, No Murmur, Normal Peripheral Pulses Gastrointestinal: Normal Bowel Sounds, No Organomegaly, No Pulsatile Mass, Non Tender, Soft Back: Normal Inspection, No CVA Tenderness, No Vertebral Tenderness Extremity: Normal Capillary Refill, Normal Inspection, Normal Range of Motion (except right leg), Non Tender, No Calf Tenderness, No Pedal Edema Neurologic/Psychiatric: Alert, Oriented x3, No Motor/Sensory Deficits, Normal Mood/Affect, Abnormal Gait, Motor Weakness (right leg 3/5) Skin: Normal Color, Warm/Dry Lymphatic: No Adenopathy Results/Procedures Lab Patient resulted labs reviewed. FIM Transfers Therapy Code Descriptions/Definitions Functional [place] Measure: 0=Not Assessed/NA 4=Minimal Assistance 1=Total Assistance 5=Supervision or Setup 2=Maximal Assistance 6=Modified [place] 3=Moderate Assistance 7=Complete IndependenceSCALE: Activities may be completed with or without assistive devices. 8-Omuqtpndwj-oqudnhz completes the activity by him/herself with no assistance from a helper. 5-Set-up or Clean-up Assistance-helper sets up or cleans up; patient completes activity. [place] assists only prior to or following the activity. 4-Supervision or Touching Assistance-helper provides verbal cues and/or touching/steadying and/or contact guard assistance as patient completes activity. Assistance may be provided throughout the activity or intermittently. 3-Partial/Moderate Assistance-helper does LESS THAN HALF the effort. [place] lifts, holds or supports trunk or limbs, but provides less than half the effort. 2-Substantial/Maximal Assistance-helper does MORE THAN HALF the effort. [place] lifts or holds trunk or limbs and provides more than half the effort. 5-Aglfffgza-bgapjb does ALL the effort. Patient does none of the effort to complete the activity. Or, the assistance of 2 or more helpers is required for the patient to complete the activity. If activity was not attempted, code reason: 7-Patient Refused. 9-Not Applicable-not attempted and the patient did not perform the activity before the current illness, exacerbation or injury. 10-Not Attempted due to Environmental Limitations-(lack of equipment, weather restraints, etc.). 88-Not Attempted due to Medical Conditions or Safety Concerns. Roll Left to Right (QC): 3 Sit to Lying (QC): 3 (assist with right LE due to pain and weakness. ) Sit to Stand (QC): 5 Chair/Cpo-zt-Hzsri Xfer(QC): 4 (FWW) Car Transfer (QC): 3 (min assist for right LE ) Gait Training Does the Patient Walk?: Yes Distance: 15' x2 Walk 10 feet (QC): 5 Walk 50 ft with 2 Turns(QC): 5 Walk 150 ft (QC): 5 Walking 10ft/uneven surface-QC: 88 Gait Persons Needed: 1 Gait Assistive Device: FWW Wheelchair Training Does the Pt Use a Wheelchair?: Yes Distance: 150 ft Wheel 50 ft with 2 turns (QC): 5 Wheel 150 ft (QC): 5 Type of Wheelchair: Manual Stair Training 1 Step (curb) (QC): 88 (approached curb step and pt attempted but was unable to safely attempt to hop up the step. ) 4 Steps (QC): 88 12 Steps (QC): 88 Balance Picking up an Object (QC): 88 ADL-Treatment Eating (QC): 6 (Per pt report) Oral Hygiene (QC): 6 (IND seated at sink) Shower/Bathe Self (QC): 3 (Sponge bath complete, Min A with lower legs/feet. CGA in stand as pt washed buttocks/periarea) Upper Body Dressing (QC): 5 (set up) Lower Body Dressing (QC): 4 (SBA in stand at FWW with clothing management) On/Off Footwear (QC): 3 (Pt required assistance donning tedhose, able to don socks and shoe with set up assist) Toileting Hygiene (QC): 4 (Based on clincial judgement, pt would require CGA with clothing management and hygiene) Assessment/Plan Assessment and Plan Assess & Plan/Chief Complaint Assessment: s/p right hip fracture Developmental delay HTN HLP Plan: Pain control Monitor closely IRF protocol 11/24/20: Monitor pain IRF protocol 11/25/2020: IRF protocol Monitor pain (1) Hip fracture, right Status: Acute AUGUSTINE CARLIN DO November 25, 2020 06:18
[2020-11-25 08:00] VITALS: BP 109/64
[2020-11-25] MEDS: DOCUSATE SODIUM 100 MG (COLACE) CAP PO SCH ×2 (08:00→21:21)
[2020-11-25] MEDS: ASPIRIN E.C. 325 MG (ECOTRIN) TABLET PO SCH (08:00)
[2020-11-25] MEDS: amLODIPine 2.5MG (NORVASC) TAB PO SCH ×2 (08:00→10:38)
[2020-11-25] MEDS: lisINopril 10 MG (PRINIVIL) TABLET PO SCH ×2 (08:00→10:38)
--- NOTE | 2020-11-25 09:16 | Occupational Ther Daily Note ---
OT Current Status-Daily Note Subjective Pt laying in bed, asks for this therapist to return later in the morning as he is not a morning person. This OT explains rehab schedule, informing him that she is unable to come back later and this is the time he is scheduled for. Pt agreeable. Mental Status/Objective Patient Orientation: Person, Place, Time, Situation ADL-Treatment Therapy Code Descriptions/Definitions Functional [place] Measure: 0=Not Assessed/NA 4=Minimal Assistance 1=Total Assistance 5=Supervision or Setup 2=Maximal Assistance 6=Modified [place] 3=Moderate Assistance 7=Complete IndependenceSCALE: Activities may be completed with or without assistive devices. 5-Ldmqrfxern-yvorcdl completes the activity by him/herself with no assistance from a helper. 5-Set-up or Clean-up Assistance-helper sets up or cleans up; patient completes activity. [place] assists only prior to or following the activity. 4-Supervision or Touching Assistance-helper provides verbal cues and/or touching/steadying and/or contact guard assistance as patient completes activity. Assistance may be provided throughout the activity or intermittently. 3-Partial/Moderate Assistance-helper does LESS THAN HALF the effort. [place] lifts, holds or supports trunk or limbs, but provides less than half the effort. 2-Substantial/Maximal Assistance-helper does MORE THAN HALF the effort. [place] lifts or holds trunk or limbs and provides more than half the effort. 9-Zxkjlecmi-pwlwrq does ALL the effort. Patient does none of the effort to complete the activity. Or, the assistance of 2 or more helpers is required for the patient to complete the activity. If activity was not attempted, code reason: 7-Patient Refused. 9-Not Applicable-not attempted and the patient did not perform the activity before the current illness, exacerbation or injury. 10-Not Attempted due to Environmental Limitations-(lack of equipment, weather restraints, etc.). 88-Not Attempted due to Medical Conditions or Safety Concerns. Shower/Bathe Self (QC): 4 (OT set up the shower. Pt washed/dried all parts IND seated on SC and standing at [facility]. 1 verbal cue to sit down to dry lower R leg) Upper Body Dressing (QC): 5 (set up) Lower Body Dressing (QC): 5 (set up) On/Off Footwear: 5 (set up) Toileting Hygiene (QC): 6 (IND with hygiene and clothing management) Other Treatment Pt laying in bed, used FWW to transfer into bathroom and onto toilet. Pt completed toileting, then sat at sink to shave. Pt able to shave IND. Pt used FWW to transfer onto SC. OT set up pt for shower, he was then able to wash all parts, while standing at GBs to dry of, he states unable to dry back of lower R leg. OT cued pt to sit in w/c and then dry it. Pt able to dry seated, with 1 verbal cue. Pt donned clothing at w/c, standing at GBs for pant hike. Post tx, pt seated in w/c, call light in reach and all needs met. Education OT Patient Education: Correct positioning, Modified ADL techniques, Progress toward Goal/Update tx plan, Purpose of tx/functional activities Teaching Recipient: Patient Teaching Methods: Discussion Response to Teaching: Verbalize Understanding OT Short Term Goals Short Term Goals Time Frame: November 30, 2020 Toileting hygiene: 5 Shower/bathe self: 4 Lower body dressin Putting on/taking off footwear: 5 OT Sales Representative Meats Goals [facility] Goals Time Frame: December 09, 2020 Eating (QC): 6 Oral Hygiene (QC): 6 Toileting Hygiene (QC): 6 Shower/Bathe Self (QC): 6 Upper Body Dressing (QC): 6 Lower Body Dressing (QC): 6 On/Off Footwear (QC): 6 Additional Goals: 1-Demonstrate ADL Tasks, 2-Verbalize Understanding, 3- ImproveStrength/El 1=Demonstrate adherence to instructed precautions during ADL tasks. 2=Patient will verbalize/demonstrate understanding of assistive devices/modifications for ADL. 3=Patient will improve strength/tolerance for activity to enable patient to perform ADL's. OT Education/Plan Problem List/Assessment Assessment: Decreased Activ Tolerance, Decreased UE Strength, Impaired I ADL's, Impaired Self-Care Skills Discharge Recommendations Plan/Recommendations: Continue POC Treatment Plan/Plan of Care Patient would benefit from OT for education, treatment and training to promote independence in ADL's, mobility, safety and/or upper extremity function for ADL's. Plan of Care: ADL Retraining, Functional Mobility, UE Funct Exercise/Act Treatment Duration: December 09, 2020 Frequency: At least 5 of 7 days/Wk (IRF) Estimated Hrs Per Day: 1.5 hours per day Rehab Potential: Good Time/GCodes Start Time: 08:00 Stop Time: 09:00 Total Time Billed (hr/min): 60 Billed Treatment Time 1, ADL 4 GAYATHRI NIELSON OT November 25, 2020 09:16
[2020-11-25] MEDS: SENNA W/DOCUSATE (SENOKOT S) TABLET PO SCH ×2 (10:39→20:58)
[2020-11-25] MEDS: polyethylene glycoL POWDER 17 GM (MIRALAX) PACK PO SCH ×2 (10:39→20:58)
--- NOTE | 2020-11-25 11:03 | Occupational Ther Daily Note ---
OT Current Status-Daily Note Subjective Pt agreeable to OT tx, sees another pt using a hemiwalker and indicates he thinks he would do well with one. OT educated pt on safety risks associated with the hemiwalker, encouraging him that the walker is a safer option. ADL-Treatment Therapy Code Descriptions/Definitions Functional [place] Measure: 0=Not Assessed/NA 4=Minimal Assistance 1=Total Assistance 5=Supervision or Setup 2=Maximal Assistance 6=Modified [place] 3=Moderate Assistance 7=Complete IndependenceSCALE: Activities may be completed with or without assistive devices. 2-Hvdxmwfdqq-omlyifl completes the activity by him/herself with no assistance from a helper. 5-Set-up or Clean-up Assistance-helper sets up or cleans up; patient completes activity. [place] assists only prior to or following the activity. 4-Supervision or Touching Assistance-helper provides verbal cues and/or touching/steadying and/or contact guard assistance as patient completes activity. Assistance may be provided throughout the activity or intermittently. 3-Partial/Moderate Assistance-helper does LESS THAN HALF the effort. [place] lifts, holds or supports trunk or limbs, but provides less than half the effort. 2-Substantial/Maximal Assistance-helper does MORE THAN HALF the effort. [place] lifts or holds trunk or limbs and provides more than half the effort. 9-Pqgsznisi-qrchha does ALL the effort. Patient does none of the effort to complete the activity. Or, the assistance of 2 or more helpers is required for the patient to complete the activity. If activity was not attempted, code reason: 7-Patient Refused. 9-Not Applicable-not attempted and the patient did not perform the activity before the current illness, exacerbation or injury. 10-Not Attempted due to Environmental Limitations-(lack of equipment, weather restraints, etc.). 88-Not Attempted due to Medical Conditions or Safety Concerns. On/Off Footwear: 5 (set up, pt able to don RLE gripper socks, and LLE sock and shoe) Other Treatment Pt seated in recliner, donned footwear. Used FWW to transfer to w/c. Pt propelled w/c to therapy gym in order to increase BUE strength and activity tolerance as well as functional mobility. On his way to the therapy gym, pt sees another pt using using a hemiwalker. Pt indicates he thinks he would do well with a hemiwalker and he would like to get rid of the walker. OT educated pt on safety with NWB status on RLE, encouraging him to continue to use FWW. (OT discussed with PT prior to tx, and pt expressed same concerns to PT. PT recommends to continue using FWW). Pt then completed arm bike x15 mins in order to increase BUE strength and activity tolerance. Pt propelled back to his room, transferring to recliner. Pt attempted to transfer without walker, OT instructed pt to use FWW and he did. After pt in recliner, OT educated pt on using FWW with transfers. Post tx, pt seated in recliner, call light in reach and all needs met. Education OT Patient Education: Correct positioning, Modified ADL techniques, Progress toward Goal/Update tx plan, Purpose of tx/functional activities Teaching Recipient: Patient Teaching Methods: Discussion Response to Teaching: Verbalize Understanding OT Short Term Goals Short Term Goals Time Frame: November 30, 2020 Toileting hygiene: 5 Shower/bathe self: 4 Lower body dressin Putting on/taking off footwear: 5 OT Fpc Goals Fpc Goals Time Frame: December 09, 2020 Eating (QC): 6 Oral Hygiene (QC): 6 Toileting Hygiene (QC): 6 Shower/Bathe Self (QC): 6 Upper Body Dressing (QC): 6 Lower Body Dressing (QC): 6 On/Off Footwear (QC): 6 Additional Goals: 1-Demonstrate ADL Tasks, 2-Verbalize Understanding, 3- ImproveStrength/El 1=Demonstrate adherence to instructed precautions during ADL tasks. 2=Patient will verbalize/demonstrate understanding of assistive devices/m odifications for ADL. 3=Patient will improve strength/tolerance for activity to enable patient to perform ADL's. OT Education/Plan Problem List/Assessment Assessment: Decreased Activ Tolerance, Decreased UE Strength, Impaired I ADL's, Impaired Self-Care Skills Discharge Recommendations Plan/Recommendations: Continue POC Treatment Plan/Plan of Care Patient would benefit from OT for education, treatment and training to promote independence in ADL's, mobility, safety and/or upper extremity function for ADL's. Plan of Care: ADL Retraining, Functional Mobility, UE Funct Exercise/Act Treatment Duration: December 09, 2020 Frequency: At least 5 of 7 days/Wk (IRF) Estimated Hrs Per Day: 1.5 hours per day Rehab Potential: Good Time/GCodes Start Time: 10:45 Stop Time: 11:15 Total Time Billed (hr/min): 30 Billed Treatment Time 1, FA (15'), EX (15') GAYATHRI NIELSON OT November 25, 2020 11:03
--- NOTE | 2020-11-25 12:05 | Physical Therapy Daily Note ---
PT Daily Note-Current Subjective Pt sitting in [facility] upon arrival. Pt reluctantly agrees to PT. Pt doesn't understand the need for FWW vs. Trino Walker or Cane as well as why he has a NWB for several more weeks. Pain Location: Right Location Body Site: Hip Pain Description: Tightness, Sharp Comment: Pt reports pain & stiffness at times but doesn't rate. Mental Status Patient Orientation: Person, Place, Time Transfers SCALE: Activities may be completed with or without assistive devices. 4-Aybypvjkef-ucrtikt completes the activity by him/herself with no assistance from a helper. 5-Set-up or Clean-up Assistance-helper sets up or cleans up; patient completes activity. [place] assists only prior to or following the activity. 4-Supervision or Touching Assistance-helper provides verbal cues and/or touching/steadying and/or contact guard assistance as patient completes activity. Assistance may be provided throughout the activity or intermittently. 3-Partial/Moderate Assistance-helper does LESS THAN HALF the effort. [place] lifts, holds or supports trunk or limbs, but provides less than half the effort. 2-Substantial/Maximal Assistance-helper does MORE THAN HALF the effort. [place] lifts or holds trunk or limbs and provides more than half the effort. 2-Wctqltnhd-anofwz does ALL the effort. Patient does none of the effort to complete the activity. Or, the assistance of 2 or more helpers is required for the patient to complete the activity. If activity was not attempted, code reason: 7-Patient Refused. 9-Not Applicable-not attempted and the patient did not perform the activity before the current illness, exacerbation or injury. 10-Not Attempted due to Environmental Limitations-(lack of equipment, weather restraints, etc.). 88-Not Attempted due to Medical Conditions or Safety Concerns. Sit to Stand (QC): 5 Weight Bearing Right Lower Extremity: Right Non Weight Bearing Left Lower Extremity: Left Full Weight Bearing Gait Training Does the Patient Walk?: Yes Distance: 150' x2 Walk 10 feet (QC): 5 Walk 50 ft with 2 Turns(QC): 5 Walk 150 ft (QC): 5 Gait Persons Needed: 1 Gait Assistive Device: FWW Pt adheres to WB status and uses FWW but requires Pt Educ. on why adhering to WB is important and why FWW must be used for safety instead of Trino Walker or Cane. Wheelchair Training Does the Pt Use a Wheelchair?: Yes Wheel 50 ft with 2 turns (QC): 5 Wheel 150 ft (QC): 5 Type of Wheelchair: Manual Stair Training Stair Training: Handrails/: 2 handrails #of Steps: 4 1 Step (curb) (QC): 4 4 Steps (QC): 4 Stairs: Pattern: Hops Treatments 900-1000: Pt Educ. on gait (see gait note above). TF to standing and amb. in hallway until needing to rest. Propels WCH after fatigue. Completes 4 steps using 2 handrails to attempt proper technique. Pt returns to room at end of tx to rest, all needs met, call light in hand. [id number]: TF to standing and amb. (100') in hallway until fatigues then TF to WC. Propels [facility] to Therapy Gym and attempts 4 Steps w/ L ascending railing & arm around shoulder of staff for proper technique. Returns to room at end of tx with all needs met, call light in hand. Assessment Current Status: Good Progress Cognitive delay limits retention and understanding of safety. Pt is impulsive at times and needs VC for Safety. PT Short Term Goals Short Term Goals Time Frame: November 30, 2020 Sit to lyin Lying to sitting on side of be: 4 Sit to stand: 5 Chair/ngt-hl-nixgv transfer: 5 Walk 50 feet with two turns: 4 PT Shelter Goals Shelter Goals PT Care Clinician Goals Time Frame: December 14, 2020 Roll Left & Right (QC): 6 Sit to Lying (QC): 6 Lying-Sitting on Side/Bed(QC): 6 Sit to Stand (QC): 6 Chair/Tfk-ci-Oatrc Xfer(QC): 6 Toilet Transfer (QC): 6 Car Transfer (QC): 6 Does the Patient Walk: Yes Walk 10 feet (QC): 6 Walk 50ft with 2 Turns (QC): 6 Walk 150 ft (QC): 6 Walking 10ft on Uneven Surface: 6 1 Step (curb) (QC): 6 4 Steps (QC): 6 12 Steps (QC): 88 Picking up an Object (QC): 88 Wheel 50 feet with 2 turns (QC: 6 Wheel 150 feet: 6 PT Plan Problem List Problem List: Safety Treatment/Plan Treatment Plan: Continue Plan of Care Treatment Plan: Bed Mobility, Education, Functional Activity El, Functional Strength, Group Therapy, Gait, Safety, Therapeutic Exercise, Transfers Treatment Duration: December 14, 2020 Frequency: At least 5 of 7 days/Wk (IRF) Estimated Hrs Per Day: 1.5 hours per day Patient and/or Family Agrees t: Yes Safety Risks/Education Patient Education: Gait Training, Transfer Techniques, Steps, Reviewed Precautions, Correct Positioning, Safety Issues Teaching Recipient: Patient Teaching Methods: Demonstration, Discussion Response to Teaching: Return Demonstration, Reinforcement Needed Time/GCodes Time In: 900 Time Out: 1345 Total Billed Treatment Time: 90 Total Billed Treatment 900-1000: 1, FA x2 (30m), GT (15m) & WCH (15m) [id number]: 1, GT (15m) & FA (15m) DARIUSZ BANKS PTA November 25, 2020 12:05
[2020-11-25] MEDS: ENOXAPARIN 40 MG/0.4 ML (LOVENOX) SYR SC SCH (15:54)
[2020-11-25 19:47] VITALS: BP 155/85
[2020-11-26] MEDS: HYDROcodone/APAP 7.5 MG/325 MG (LORTAB, LORCET PLUS) TABLET PO PRN ×3 (02:24→21:43)
[2020-11-26] MEDS: ALPRAZolam 0.25 MG (XANAX) TAB PO PRN (02:29)
--- NOTE | 2020-11-26 07:45 | PM&R Progress Note ---
Subjective HPI/CC On Admission Date Seen by Provider: November 26, 2020 Time Seen by Provider: 11:45 Subjective/Events-last exam 11/26/20: Patient reports no new issues Pain is controlled No issues 11/25/2020: Patient doing pretty well today Did not really want a work with therapy Bowels are moving pretty well Blood pressure is actually low so holding blood pressure medication for systolic less than 130 11/24/20: Pt doing very well Participating in therapy Refused the dressing change but the dressing looks good Bowels moved yesterday Checked meds and labs Review of Systems Musculoskeletal: leg pain Objective Exam Vital Signs Vital Signs Date Time Temp Pulse Resp B/P (MAP) Pulse Ox O2 Delivery O2 Flow Rate FiO2 11/26/20 08:44 95 Room Air 11/26/20 08:21 36.0 97 20 135/77 (96) Capillary Refill : General Appearance: No Apparent Distress, WD/WN HEENT: PERRL/EOMI, Normal ENT Inspection, Pharynx Normal Neck: Full Range of Motion, Normal Inspection, Non Tender, Supple, Carotid Bruit Respiratory: Chest Non Tender, Lungs Clear, Normal Breath Sounds, No Accessory Muscle Use, No Respiratory Distress Cardiovascular: Regular Rate, Rhythm, No Edema, No Gallop, No JVD, No Murmur, Normal Peripheral Pulses Gastrointestinal: Normal Bowel Sounds, No Organomegaly, No Pulsatile Mass, Non Tender, Soft Back: Normal Inspection, No CVA Tenderness, No Vertebral Tenderness Extremity: Normal Capillary Refill, Normal Inspection, Normal Range of Motion (except right leg), Non Tender, No Calf Tenderness, No Pedal Edema Neurologic/Psychiatric: Alert, Oriented x3, No Motor/Sensory Deficits, Normal Mood/Affect, Abnormal Gait, Motor Weakness (right leg 3/5) Skin: Normal Color, Warm/Dry Lymphatic: No Adenopathy Results/Procedures Lab Patient resulted labs reviewed. FIM Transfers Therapy Code Descriptions/Definitions Functional [place] Measure: 0=Not Assessed/NA 4=Minimal Assistance 1=Total Assistance 5=Supervision or Setup 2=Maximal Assistance 6=Modified [place] 3=Moderate Assistance 7=Complete IndependenceSCALE: Activities may be completed with or without assistive devices. 6-Fjzjarctmp-oxcipnm completes the activity by him/herself with no assistance from a helper. 5-Set-up or Clean-up Assistance-helper sets up or cleans up; patient completes activity. [place] assists only prior to or following the activity. 4-Supervision or Touching Assistance-helper provides verbal cues and/or touching/steadying and/or contact guard assistance as patient completes activity. Assistance may be provided throughout the activity or intermittently. 3-Partial/Moderate Assistance-helper does LESS THAN HALF the effort. [place] lifts, holds or supports trunk or limbs, but provides less than half the effort. 2-Substantial/Maximal Assistance-helper does MORE THAN HALF the effort. [place] lifts or holds trunk or limbs and provides more than half the effort. 7-Tborlrysl-rbujjz does ALL the effort. Patient does none of the effort to complete the activity. Or, the assistance of 2 or more helpers is required for the patient to complete the activity. If activity was not attempted, code reason: 7-Patient Refused. 9-Not Applicable-not attempted and the patient did not perform the activity before the current illness, exacerbation or injury. 10-Not Attempted due to Environmental Limitations-(lack of equipment, weather restraints, etc.). 88-Not Attempted due to Medical Conditions or Safety Concerns. Roll Left to Right (QC): 3 Sit to Lying (QC): 3 (assist with right LE due to pain and weakness. ) Sit to Stand (QC): 5 Chair/[place]-Kprbp Xfer(QC): 4 (FWW) Car Transfer (QC): 3 (min assist for right LE ) Gait Training Does the Patient Walk?: Yes Distance: 150' x2 Walk 10 feet (QC): 5 Walk 50 ft with 2 Turns(QC): 5 Walk 150 ft (QC): 5 Walking 10ft/uneven surface-QC: 88 Gait Persons Needed: 1 Gait Assistive Device: FWW Wheelchair Training Does the Pt Use a Wheelchair?: Yes Distance: 150 ft Wheel 50 ft with 2 turns (QC): 5 Wheel 150 ft (QC): 5 Type of Wheelchair: Manual Stair Training Stair Training: Handrails/: 2 handrails #of Steps: 4 1 Step (curb) (QC): 4 4 Steps (QC): 4 12 Steps (QC): 88 Stairs: Pattern: Hops Balance Picking up an Object (QC): 88 ADL-Treatment Eating (QC): 6 (Per pt report) Oral Hygiene (QC): 6 (IND seated at sink) Shower/Bathe Self (QC): 4 (OT set up the shower. Pt washed/dried all parts IND seated on SC and standing at GBs. 1 verbal cue to sit down to dry lower R leg) Upper Body Dressing (QC): 5 (set up) Lower Body Dressing (QC): 5 (set up) On/Off Footwear (QC): 5 (set up, pt able to don RLE gripper socks, and LLE sock and shoe) Toileting Hygiene (QC): 6 (IND with hygiene and clothing management) Assessment/Plan Assessment and Plan Assess & Plan/Chief Complaint Assessment: s/p right hip fracture Developmental delay HTN HLP Plan: Pain control Monitor closely IRF protocol 11/24/20: Monitor pain IRF protocol 11/25/2020: IRF protocol Monitor pain 11/26/20: Monitor BP Pain control (1) Hip fracture, right Status: Acute AUGUSTINE CARLIN DO November 26, 2020 07:45
[2020-11-26 08:21] VITALS: BP 135/77
[2020-11-26] MEDS: ASPIRIN E.C. 325 MG (ECOTRIN) TABLET PO SCH (08:23)
[2020-11-26] MEDS: amLODIPine 2.5MG (NORVASC) TAB PO SCH (08:42)
[2020-11-26] MEDS: polyethylene glycoL POWDER 17 GM (MIRALAX) PACK PO SCH ×2 (08:42→20:51)
[2020-11-26] MEDS: DOCUSATE SODIUM 100 MG (COLACE) CAP PO SCH ×2 (08:42→20:49)
[2020-11-26] MEDS: lisINopril 10 MG (PRINIVIL) TABLET PO SCH (08:43)
[2020-11-26] MEDS: SENNA W/DOCUSATE (SENOKOT S) TABLET PO SCH ×2 (08:43→20:51)
--- NOTE | 2020-11-26 12:03 | Physical Therapy Daily Note ---
PT Daily Note-Current Subjective Pt laying Supine in bed upon arrival. Pt reports not sleeping well due to pain. Pt still in pain in R hip but has been given pain med. Pt has not even eaten breakfast yet per pt. Pain Numeric Pain Scale: 5-Moderate Pain Location: Right Location Body Site: Hip Pain Description: Tightness, Sharp Mental Status Patient Orientation: Person, Place, Situation Transfers SCALE: Activities may be completed with or without assistive devices. 3-Ehtfufxxzt-bkmxgid completes the activity by him/herself with no assistance from a helper. 5-Set-up or Clean-up Assistance-helper sets up or cleans up; patient completes activity. [place] assists only prior to or following the activity. 4-Supervision or Touching Assistance-helper provides verbal cues and/or touching/steadying and/or contact guard assistance as patient completes activity. Assistance may be provided throughout the activity or intermittently. 3-Partial/Moderate Assistance-helper does LESS THAN HALF the effort. [place] lifts, holds or supports trunk or limbs, but provides less than half the effort. 2-Substantial/Maximal Assistance-helper does MORE THAN HALF the effort. [place] lifts or holds trunk or limbs and provides more than half the effort. 3-Drdxivnvq-xgaodi does ALL the effort. Patient does none of the effort to complete the activity. Or, the assistance of 2 or more helpers is required for the patient to complete the activity. If activity was not attempted, code reason: 7-Patient Refused. 9-Not Applicable-not attempted and the patient did not perform the activity before the current illness, exacerbation or injury. 10-Not Attempted due to Environmental Limitations-(lack of equipment, weather restraints, etc.). 88-Not Attempted due to Medical Conditions or Safety Concerns. Weight Bearing Right Lower Extremity: Right Non Weight Bearing Left Lower Extremity: Left Full Weight Bearing Exercises Supine Ex: Ankle pumps, Quad Set, Glut sets, Heel Slides, Hip abd/add Supine Reps: 10 Treatments Pt completes Supine EX with reported pain and asks to discontinue tx due to pain at that time. Pt resting with all needs met, call light in hand. Assessment Current Status: Fair Progress Pt reluctantly agrees to tx and is limited by pain. PT Short Term Goals Short Term Goals Time Frame: November 30, 2020 Sit to lyin Lying to sitting on side of be: 4 Sit to stand: 5 Chair/kab-os-kjgpz transfer: 5 Walk 50 feet with two turns: 4 PT Residential Goals [employer] Goals PT Residential Goals Time Frame: December 14, 2020 Roll Left & Right (QC): 6 Sit to Lying (QC): 6 Lying-Sitting on Side/Bed(QC): 6 Sit to Stand (QC): 6 Chair/Ehd-ur-Eimfo Xfer(QC): 6 Toilet Transfer (QC): 6 Car Transfer (QC): 6 Does the Patient Walk: Yes Walk 10 feet (QC): 6 Walk 50ft with 2 Turns (QC): 6 Walk 150 ft (QC): 6 Walking 10ft on Uneven Surface: 6 1 Step (curb) (QC): 6 4 Steps (QC): 6 12 Steps (QC): 88 Picking up an Object (QC): 88 Wheel 50 feet with 2 turns (QC: 6 Wheel 150 feet: 6 PT Plan Problem List Problem List: Activity Tolerance, Safety Treatment/Plan Treatment Plan: Continue Plan of Care Treatment Plan: Bed Mobility, Education, Functional Activity El, Functional Strength, Group Therapy, Gait, Safety, Therapeutic Exercise, Transfers Treatment Duration: December 14, 2020 Frequency: At least 5 of 7 days/Wk (IRF) Estimated Hrs Per Day: 1.5 hours per day Patient and/or Family Agrees t: Yes Safety Risks/Education Patient Education: Correct Positioning, Safety Issues Teaching Recipient: Patient Teaching Methods: Discussion Response to Teaching: Reinforcement Needed Time/GCodes Time In: 1030 Time Out: 1045 Total Billed Treatment Time: 15 Total Billed Treatment 1, EX (15m) DARIUSZ BANKS PTA November 26, 2020 12:03
[2020-11-26] MEDS: ENOXAPARIN 40 MG/0.4 ML (LOVENOX) SYR SC SCH (16:51)
[2020-11-26 20:00] VITALS: BP 136/65
--- NOTE | 2020-11-27 07:10 | PM&R Progress Note ---
Subjective HPI/CC On Admission Date Seen by Provider: November 27, 2020 Time Seen by Provider: 12:00 Subjective/Events-last exam 11/27/20: Refused BP meds ASA taken for DVT PPx Changed dressing today 11/26/20: Patient reports no new issues Pain is controlled No issues 11/25/2020: Patient doing pretty well today Did not really want a work with therapy Bowels are moving pretty well Blood pressure is actually low so holding blood pressure medication for systolic less than 130 11/24/20: Pt doing very well Participating in therapy Refused the dressing change but the dressing looks good Bowels moved yesterday Checked meds and labs Review of Systems General: Fatigue Musculoskeletal: leg pain Objective Exam Vital Signs Vital Signs Date Time Temp Pulse Resp B/P (MAP) Pulse Ox O2 Delivery O2 Flow Rate FiO2 11/27/20 09:32 Room Air 11/27/20 07:58 36.3 72 18 135/85 (102) 95 Capillary Refill : General Appearance: No Apparent Distress, WD/WN HEENT: PERRL/EOMI, Normal ENT Inspection, Pharynx Normal Neck: Full Range of Motion, Normal Inspection, Non Tender, Supple, Carotid Bruit Respiratory: Chest Non Tender, Lungs Clear, Normal Breath Sounds, No Accessory Muscle Use, No Respiratory Distress Cardiovascular: Regular Rate, Rhythm, No Edema, No Gallop, No JVD, No Murmur, Normal Peripheral Pulses Gastrointestinal: Normal Bowel Sounds, No Organomegaly, No Pulsatile Mass, Non Tender, Soft Back: Normal Inspection, No CVA Tenderness, No Vertebral Tenderness Extremity: Normal Capillary Refill, Normal Inspection, Normal Range of Motion (except right leg), Non Tender, No Calf Tenderness, No Pedal Edema Neurologic/Psychiatric: Alert, Oriented x3, No Motor/Sensory Deficits, Normal Mood/Affect, Abnormal Gait, Motor Weakness (right leg 3/5) Skin: Normal Color, Warm/Dry Lymphatic: No Adenopathy Results/Procedures Lab Patient resulted labs reviewed. FIM Transfers Therapy Code Descriptions/Definitions Functional [place] Measure: 0=Not Assessed/NA 4=Minimal Assistance 1=Total Assistance 5=Supervision or Setup 2=Maximal Assistance 6=Modified [place] 3=Moderate Assistance 7=Complete IndependenceSCALE: Activities may be completed with or without assistive devices. 4-Adkrsqxzzh-dltkeei completes the activity by him/herself with no assistance from a helper. 5-Set-up or Clean-up Assistance-helper sets up or cleans up; patient completes activity. [place] assists only prior to or following the activity. 4-Supervision or Touching Assistance-helper provides verbal cues and/or touching/steadying and/or contact guard assistance as patient completes activity. Assistance may be provided throughout the activity or intermittently. 3-Partial/Moderate Assistance-helper does LESS THAN HALF the effort. [place] lifts, holds or supports trunk or limbs, but provides less than half the effort. 2-Substantial/Maximal Assistance-helper does MORE THAN HALF the effort. [place] lifts or holds trunk or limbs and provides more than half the effort. 9-Fefxmnveq-yxddif does ALL the effort. Patient does none of the effort to complete the activity. Or, the assistance of 2 or more helpers is required for the patient to complete the activity. If activity was not attempted, code reason: 7-Patient Refused. 9-Not Applicable-not attempted and the patient did not perform the activity before the current illness, exacerbation or injury. 10-Not Attempted due to Environmental Limitations-(lack of equipment, weather restraints, etc.). 88-Not Attempted due to Medical Conditions or Safety Concerns. Roll Left to Right (QC): 3 Sit to Lying (QC): 3 (assist with right LE due to pain and weakness. ) Sit to Stand (QC): 5 Chair/Fab-ku-Xjshn Xfer(QC): 4 (FWW) Car Transfer (QC): 3 (min assist for right LE ) Gait Training Does the Patient Walk?: Yes Distance: 150' x2 Walk 10 feet (QC): 5 Walk 50 ft with 2 Turns(QC): 5 Walk 150 ft (QC): 5 Walking 10ft/uneven surface-QC: 88 Gait Persons Needed: 1 Gait Assistive Device: FWW Wheelchair Training Does the Pt Use a Wheelchair?: Yes Distance: 150 ft Wheel 50 ft with 2 turns (QC): 5 Wheel 150 ft (QC): 5 Type of Wheelchair: Manual Stair Training Stair Training: Handrails/: 2 handrails #of Steps: 4 1 Step (curb) (QC): 4 4 Steps (QC): 4 12 Steps (QC): 88 Stairs: Pattern: Hops Balance Picking up an Object (QC): 88 ADL-Treatment Eating (QC): 6 (Per pt report) Oral Hygiene (QC): 6 (IND seated at sink) Shower/Bathe Self (QC): 4 (OT set up the shower. Pt washed/dried all parts IND seated on SC and standing at GBs. 1 verbal cue to sit down to dry lower R leg) Upper Body Dressing (QC): 5 (set up) Lower Body Dressing (QC): 5 (set up) On/Off Footwear (QC): 5 (set up, pt able to don RLE gripper socks, and LLE sock and shoe) Toileting Hygiene (QC): 6 (IND with hygiene and clothing management) Assessment/Plan Assessment and Plan Assess & Plan/Chief Complaint Assessment: s/p right hip fracture Developmental delay HTN HLP Plan: Pain control Monitor closely IRF protocol 11/24/20: Monitor pain IRF protocol 11/25/2020: IRF protocol Monitor pain 11/26/20: Monitor BP Pain control 11/27/20: Monitor closely Labs due in morning (1) Hip fracture, right Status: Acute AUGUSTINE CARLIN DO November 27, 2020 07:10
[2020-11-27 07:58] VITALS: BP 135/85
[2020-11-27] MEDS: DOCUSATE SODIUM 100 MG (COLACE) CAP PO SCH ×3 (09:14→22:26)
[2020-11-27] MEDS: polyethylene glycoL POWDER 17 GM (MIRALAX) PACK PO SCH ×2 (09:14→20:22)
[2020-11-27] MEDS: ASPIRIN E.C. 325 MG (ECOTRIN) TABLET PO SCH (09:14)
[2020-11-27] MEDS: amLODIPine 2.5MG (NORVASC) TAB PO SCH (09:25)
[2020-11-27] MEDS: SENNA W/DOCUSATE (SENOKOT S) TABLET PO SCH ×2 (09:26→20:22)
[2020-11-27] MEDS: lisINopril 10 MG (PRINIVIL) TABLET PO SCH (09:26)
[2020-11-27] MEDS: HYDROcodone/APAP 7.5 MG/325 MG (LORTAB, LORCET PLUS) TABLET PO PRN ×3 (10:33→22:27)
[2020-11-27] MEDS: ENOXAPARIN 40 MG/0.4 ML (LOVENOX) SYR SC SCH (16:12)
[2020-11-27 19:54] VITALS: BP 157/80
[2020-11-28] MEDS: ALPRAZolam 0.25 MG (XANAX) TAB PO PRN (00:07)
[2020-11-28 05:41] LABS: BASOPHILS % (AUTO) 1 % (0-10); EOSINOPHILS # (AUTO) 0.2 10^3/uL (0.0-0.3); EOSINOPHILS % (AUTO) 4 % (0-10); HEMATOCRIT 41 % (40-54); HEMOGLOBIN 13.4 g/dL (13.3-17.7); LYMPHOCYTES # (AUTO) 2.1 10^3/uL (1.0-4.0); LYMPHOCYTES % (AUTO) 37 % (12-44); MEAN CORPUSCULAR HEMOGLOBIN 31 pg (25-34); MEAN CORPUSCULAR HGB CONC 33 g/dL (32-36); MEAN CORPUSCULAR VOLUME 93 fL (80-99); MEAN PLATELET VOLUME 11.9 fL (9.0-12.2); MONOCYTES # (AUTO) 0.5 10^3/uL (0.0-1.0); MONOCYTES % (AUTO) 8 % (0-12); NEUTROPHILS # (AUTO) 2.9 10^3/uL (1.8-7.8); NEUTROPHILS % (AUTO) 50 % (42-75); PLATELET COUNT 254 10^3/uL (130-400); WHITE BLOOD COUNT 5.8 10^3/uL (4.3-11.0)
[2020-11-28 05:53] LABS: ALBUMIN 3.6 GM/DL (3.2-4.5)
[2020-11-28 05:54] LABS: CHLORIDE 105 MMOL/L (98-107); POTASSIUM 4.1 MMOL/L (3.6-5.0); SODIUM 140 MMOL/L (135-145)
[2020-11-28 05:55] LABS: CALCIUM 9.2 MG/DL (8.5-10.1)
[2020-11-28 05:56] LABS: GLUCOSE 95 MG/DL (70-105); TOTAL PROTEIN 6.5 GM/DL (6.4-8.2)
[2020-11-28 05:57] LABS: CARBON DIOXIDE 24 MMOL/L (21-32)
[2020-11-28 05:58] LABS: BILIRUBIN,TOTAL 0.5 MG/DL (0.1-1.0)
[2020-11-28 05:59] LABS: ALKALINE PHOSPHATASE 82 U/L (40-136)
[2020-11-28 06:00] LABS: CREATININE SERUM 0.83 MG/DL (0.60-1.30); GFR ESTIMATED > 60
[2020-11-28 06:01] LABS: BUN/CREATININE RATIO 20
[2020-11-28 06:02] LABS: ALANINE AMINOTRANSFERASE 102 U/L (0-55)
[2020-11-28 08:00] VITALS: BP 114/65
[2020-11-28] MEDS: HYDROcodone/APAP 7.5 MG/325 MG (LORTAB, LORCET PLUS) TABLET PO PRN ×4 (08:56→21:42)
[2020-11-28] MEDS: SENNA W/DOCUSATE (SENOKOT S) TABLET PO SCH ×4 (08:57→22:31)
[2020-11-28] MEDS: DOCUSATE SODIUM 100 MG (COLACE) CAP PO SCH ×4 (08:57→22:31)
[2020-11-28] MEDS: ASPIRIN E.C. 325 MG (ECOTRIN) TABLET PO SCH ×2 (08:57→09:58)
[2020-11-28] MEDS: polyethylene glycoL POWDER 17 GM (MIRALAX) PACK PO SCH ×3 (08:57→21:00)
[2020-11-28] MEDS: lisINopril 10 MG (PRINIVIL) TABLET PO SCH (09:36)
[2020-11-28] MEDS: amLODIPine 2.5MG (NORVASC) TAB PO SCH (09:36)
--- NOTE | 2020-11-28 09:43 | PM&R Progress Note ---
Subjective HPI/CC On Admission Date Seen by Provider: November 28, 2020 Time Seen by Provider: 09:15 Subjective/Events-last exam 11/28/20: Patient does not want to be disturbed until 11:00 Ready for discharge tomorrow 11/27/20: Refused BP meds ASA taken for DVT PPx Changed dressing today 11/26/20: Patient reports no new issues Pain is controlled No issues 11/25/2020: Patient doing pretty well today Did not really want a work with therapy Bowels are moving pretty well Blood pressure is actually low so holding blood pressure medication for systolic less than 130 11/24/20: Pt doing very well Participating in therapy Refused the dressing change but the dressing looks good Bowels moved yesterday Checked meds and labs Review of Systems General: Fatigue Musculoskeletal: leg pain Objective Exam Vital Signs Vital Signs Date Time Temp Pulse Resp B/P (MAP) Pulse Ox O2 Delivery O2 Flow Rate FiO2 11/28/20 09:09 Room Air 11/28/20 08:00 36.5 63 18 114/65 (81) 95 Capillary Refill : General Appearance: No Apparent Distress, WD/WN HEENT: PERRL/EOMI, Normal ENT Inspection, Pharynx Normal Neck: Full Range of Motion, Normal Inspection, Non Tender, Supple, Carotid Bruit Respiratory: Chest Non Tender, Lungs Clear, Normal Breath Sounds, No Accessory Muscle Use, No Respiratory Distress Cardiovascular: Regular Rate, Rhythm, No Edema, No Gallop, No JVD, No Murmur, Normal Peripheral Pulses Gastrointestinal: Normal Bowel Sounds, No Organomegaly, No Pulsatile Mass, Non Tender, Soft Back: Normal Inspection, No CVA Tenderness, No Vertebral Tenderness Extremity: Normal Capillary Refill, Normal Inspection, Normal Range of Motion (except right leg), Non Tender, No Calf Tenderness, No Pedal Edema Neurologic/Psychiatric: Alert, Oriented x3, No Motor/Sensory Deficits, Normal Mood/Affect, Abnormal Gait, Motor Weakness (right leg 3/5) Skin: Normal Color, Warm/Dry Lymphatic: No Adenopathy Results/Procedures Lab Laboratory Tests 11/28/20 05:17 Patient resulted labs reviewed. FIM Transfers Therapy Code Descriptions/Definitions Functional [place] Measure: 0=Not Assessed/NA 4=Minimal Assistance 1=Total Assistance 5=Supervision or Setup 2=Maximal Assistance 6=Modified [place] 3=Moderate Assistance 7=Complete IndependenceSCALE: Activities may be completed with or without assistive devices. 2-Jwkrucrnks-grsdedz completes the activity by him/herself with no assistance from a helper. 5-Set-up or Clean-up Assistance-helper sets up or cleans up; patient completes activity. [place] assists only prior to or following the activity. 4-Supervision or Touching Assistance-helper provides verbal cues and/or touching/steadying and/or contact guard assistance as patient completes ac tivity. Assistance may be provided throughout the activity or intermittently. 3-Partial/Moderate Assistance-helper does LESS THAN HALF the effort. [place] lifts, holds or supports trunk or limbs, but provides less than half the effort. 2-Substantial/Maximal Assistance-helper does MORE THAN HALF the effort. [place] lifts or holds trunk or limbs and provides more than half the effort. 6-Fioofqbri-atgiur does ALL the effort. Patient does none of the effort to complete the activity. Or, the assistance of 2 or more helpers is required for the patient to complete the activity. If activity was not attempted, code reason: 7-Patient Refused. 9-Not Applicable-not attempted and the patient did not perform the activity before the current illness, exacerbation or injury. 10-Not Attempted due to Environmental Limitations-(lack of equipment, weather restraints, etc.). 88-Not Attempted due to Medical Conditions or Safety Concerns. Roll Left to Right (QC): 3 Sit to Lying (QC): 3 (assist with right LE due to pain and weakness. ) Sit to Stand (QC): 5 Chair/Zep-ho-Nnqop Xfer(QC): 4 (FWW) Car Transfer (QC): 3 (min assist for right LE ) Gait Training Does the Patient Walk?: Yes Distance: 150' x2 Walk 10 feet (QC): 5 Walk 50 ft with 2 Turns(QC): 5 Walk 150 ft (QC): 5 Walking 10ft/uneven surface-QC: 88 Gait Persons Needed: 1 Gait Assistive Device: FWW Wheelchair Training Does the Pt Use a Wheelchair?: Yes Distance: 150 ft Wheel 50 ft with 2 turns (QC): 5 Wheel 150 ft (QC): 5 Type of Wheelchair: Manual Stair Training Stair Training: Handrails/: 2 handrails #of Steps: 4 1 Step (curb) (QC): 4 4 Steps (QC): 4 12 Steps (QC): 88 Stairs: Pattern: Hops Balance Picking up an Object (QC): 88 ADL-Treatment Eating (QC): 6 (Per pt report) Oral Hygiene (QC): 6 (IND seated at sink) Shower/Bathe Self (QC): 4 (OT set up the shower. Pt washed/dried all parts IND seated on SC and standing at GBs. 1 verbal cue to sit down to dry lower R leg) Upper Body Dressing (QC): 5 (set up) Lower Body Dressing (QC): 5 (set up) On/Off Footwear (QC): 5 (set up, pt able to don RLE gripper socks, and LLE sock and shoe) Toileting Hygiene (QC): 6 (IND with hygiene and clothing management) Assessment/Plan Assessment and Plan Assess & Plan/Chief Complaint Assessment: s/p right hip fracture Developmental delay HTN HLP Plan: Pain control Monitor closely IRF protocol 11/24/20: Monitor pain IRF protocol 11/25/2020: IRF protocol Monitor pain 11/26/20: Monitor BP Pain control 11/27/20: Monitor closely Labs due in morning 11/28/20: Discharge tomorrow (1) Hip fracture, right Status: Acute Qualifiers: Qualified Codes: S72.001A - Fracture of unspecified part of neck of right femur, initial encounter for closed fracture AUGUSTINE CARLIN DO November 28, 2020 09:43
[2020-11-28] MEDS ORDERED: LISI10TA25 PO (09:44)
[2020-11-28] MEDS ORDERED: ASPI325T32 PO (09:44)
[2020-11-28] MEDS ORDERED: HYDR-34 PO (09:44)
--- NOTE | 2020-11-28 10:05 | Occupational Ther Daily Note ---
OT Current Status-Daily Note Subjective Pt laying in bed sleeping, awoken and agreeable to OT Tx with focus on ADLs. Pt states he feels ready to go back home, no concerns with ADLs. 12/29 pain in R hip, nurse notified. Mental Status/Objective Patient Orientation: Person, Place, Time, Situation ADL-Treatment Therapy Code Descriptions/Definitions Functional [place] Measure: 0=Not Assessed/NA 4=Minimal Assistance 1=Total Assistance 5=Supervision or Setup 2=Maximal Assistance 6=Modified [place] 3=Moderate Assistance 7=Complete IndependenceSCALE: Activities may be completed with or without assistive devices. 5-Hqqwrmnrtv-hrtmccq completes the activity by him/herself with no assistance from a helper. 5-Set-up or Clean-up Assistance-helper sets up or cleans up; patient completes activity. [place] assists only prior to or following the activity. 4-Supervision or Touching Assistance-helper provides verbal cues and/or touching/steadying and/or contact guard assistance as patient completes activity. Assistance may be provided throughout the activity or intermittently. 3-Partial/Moderate Assistance-helper does LESS THAN HALF the effort. [place] lifts, holds or supports trunk or limbs, but provides less than half the effort. 2-Substantial/Maximal Assistance-helper does MORE THAN HALF the effort. [place] lifts or holds trunk or limbs and provides more than half the effort. 1-Kmmlwkzvp-ahvbzu does ALL the effort. Patient does none of the effort to complete the activity. Or, the assistance of 2 or more helpers is required for the patient to complete the activity. If activity was not attempted, code reason: 7-Patient Refused. 9-Not Applicable-not attempted and the patient did not perform the activity bef ore the current illness, exacerbation or injury. 10-Not Attempted due to Environmental Limitations-(lack of equipment, weather r estraints, etc.). 88-Not Attempted due to Medical Conditions or Safety Concerns. Eating (QC): 6 (Per clinicial judgement and pt report) Oral Hygiene (QC): 6 (IND standing at sink.) Shower/Bathe Self (QC): 5 (set up to cover dressing. Pt then able to wash/dry all parts.) Upper Body Dressing (QC): 6 (Pt gathered clothing from closet, able to don machine tack puller shirt.) Lower Body Dressing (QC): 6 (Pt gathered clothing from closet, able to doff/don LE clothing) On/Off Footwear: 6 (IND donning gripper sock RLE, sock/shoe LLE.) Toileting Hygiene (QC): 6 (IND with clothing management and hygiene.) Toilet Transfer (QC): 6 (IND on/off BSC over toilet.) Other Treatment Pt used FWW to perform functional mobility around his room to gather clothing, then took his clothes into bathroom. Pt performed toileting, then transferred to [place] to complete shower (OT covered pt's dressing prior to shower). Pt dried off, transferred to [facility] over toilet and dressed. Pt stood at sink to complete oral care, then transferred to recliner for seated rest break. Pt performed functional mobility to therapy gym using FWW, 1 seated rest break. In order to increase BUE strength and activity tolerance, pt completed x15 mins arm bike, h eavy resistance with rest breaks as needed. Post tx, pt seated in gym, PT present for tx. Education OT Patient Education: Correct positioning, Modified ADL techniques, Progress toward Goal/Update tx plan, Purpose of tx/functional activities Teaching Recipient: Patient Teaching Methods: Discussion Response to Teaching: Verbalize Understanding OT Short Term Goals Short Term Goals Time Frame: November 30, 2020 Toileting hygiene: 5 Shower/bathe self: 4 Lower body dressin Putting on/taking off footwear: 5 OT Assistant Athletic Trainer Goals Assistant Athletic Trainer Goals Time Frame: December 09, 2020 Eating (QC): 6 (met) Oral Hygiene (QC): 6 (met) Toileting Hygiene (QC): 6 (met) Shower/Bathe Self (QC): 6 (not met, set up) Upper Body Dressing (QC): 6 (met) Lower Body Dressing (QC): 6 (met) On/Off Footwear (QC): 6 (met) Additional Goals: 1-Demonstrate ADL Tasks, 2-Verbalize Understanding, 3- ImproveStrength/El 1=Demonstrate adherence to instructed precautions during ADL tasks. 2=Patient will verbalize/demonstrate understanding of assistive devices/modifications for ADL. 3=Patient will improve strength/tolerance for activity to enable patient to perform ADL's. OT Education/Plan Problem List/Assessment Assessment: Decreased Activ Tolerance, Impaired I ADL's Discharge Recommendations Plan/Recommendations: Continue POC Treatment Plan/Plan of Care Patient would benefit from OT for education, treatment and training to promote independence in ADL's, mobility, safety and/or upper extremity function for ADL's. Plan of Care: ADL Retraining, Functional Mobility, UE Funct Exercise/Act Treatment Duration: December 09, 2020 Frequency: At least 5 of 7 days/Wk (IRF) Estimated Hrs Per Day: 1.5 hours per day Rehab Potential: Good Time/GCodes Start Time: 09:30 Stop Time: 11:00 Total Time Billed (hr/min): 90 Billed Treatment Time 1, ADL 5 (70'), EX (20') GAYATHRI NIELSON OT November 28, 2020 10:04
--- NOTE | 2020-11-28 10:40 | D/C HH Face to Face Order ---
D/C Face to Face Orders Reconcile Patient Problems Problems Reviewed?: Yes Instructions for Patient Via [facility], Patient Instructions/FollowUp: Dr Ludwig 1 week Physician to follow Patient: [place] Discharge Diet for Home: No Restrictions Patient Problems: Hip fracture Patient Data-Allergies,Ht & Wt Patient Allergies: Coded Allergies: No Known Drug Allergies (Unverified , 04/03/10) Height (Feet): 5 Height (Inches): 8.00 Weight (Pounds): 160 Home Health Need/Face to Face Date of Face to Face: November 28, 2020 Clinical Findings: Generalized weakness and fatigue, Instability, Muscle weakness, Non or partial weight bearing, Pain with ambulation, Unsteady gait I have seen Pt awpb-ta-dnos: Yes Discharged To: Home Diagnosis/Conditions: Hip fracture Patient is Homebound due to: CognItive deficits, [place] fall risk due to instabilty, Muscle weakness, Pain w/ambulation Homebound Status Due to the above stated illness, injury or surgical procedure (medical condition or diagnosis) and associated clinical findings, the patient is homebound because of his/her inability to leave home except with aid of a supportive device and/or person AND leaving the home requires a considerable and taxing effort or is medically contraindicated. Pt req the following assistanc: Walker, Wheelchair Home Health Nursing Orders Home Health Services Order: Pick Pulling Machine Tender-Evaluate & Treat, Physical Therapy-Evaluate & Treat Certify Stmt I certify that this patient is under my care and that I, a nurse practitioner or a physician; a assistant manager bilingual working with me, had a face to face encounter that - meets the physician face to face encounter requirements with this patient as dated. AUGUSTINE CARLIN DO November 28, 2020 10:40
--- NOTE | 2020-11-28 11:58 | Physical Therapy Daily Note ---
PT Daily Note-Current Subjective Patient upright in therapy gym pre tx with OT, consents to treatment with PT, c/o 6/10 pain, requests pain medication before starting PT. Appearance Patient upright in reclining chair, with call button within reach and tray table nearby, all needs met. Mental Status Patient Orientation: Person, Place, MR, Time Transfers SCALE: Activities may be completed with or without assistive devices. 5-Cplkjvlzry-ostimdn completes the activity by him/herself with no assistance from a helper. 5-Set-up or Clean-up Assistance-helper sets up or cleans up; patient completes activity. [place] assists only prior to or following the activity. 4-Supervision or Touching Assistance-helper provides verbal cues and/or touching/steadying and/or contact guard assistance as patient completes activity. Assistance may be provided throughout the activity or intermittently. 3-Partial/Moderate Assistance-helper does LESS THAN HALF the effort. [place] lifts, holds or supports trunk or limbs, but provides less than half the effort. 2-Substantial/Maximal Assistance-helper does MORE THAN HALF the effort. [place] lifts or holds trunk or limbs and provides more than half the effort. 6-Mdjhbesup-siyvlb does ALL the effort. Patient does none of the effort to comp lete the activity. Or, the assistance of 2 or more helpers is required for the patient to complete the activity. If activity was not attempted, code reason: 7-Patient Refused. 9-Not Applicable-not attempted and the patient did not perform the activity before the current illness, exacerbation or injury. 10-Not Attempted due to Environmental Limitations-(lack of equipment, weather restraints, etc.). 88-Not Attempted due to Medical Conditions or Safety Concerns. Roll Left & Right (QC): 6 Sit to Lying (QC): 6 Lying to Sitting/Side of Bed(Q: 6 Sit to Stand (QC): 6 Chair/Ydm-dy-Bsgle Xfer(QC): 6 Toilet Transfer (QC): 6 Car Transfer (QC): 6 Patient is able to easily maintain NWB status with all transfers. Weight Bearing Right Lower Extremity: Right Non Weight Bearing Left Lower Extremity: Left Full Weight Bearing Gait Training Does the Patient Walk?: Yes Distance: 60' x2, 120' Walk 10 feet (QC): 6 Walk 50 ft with 2 Turns(QC): 6 Walk 150 ft (QC): 88 Walking 10ft/uneven surface-QC: 6 Gait Assistive Device: FWW Patient able to maintain balance and steadiness with gait, began to fatigue at end of 120' gait cycle. Wheelchair Training Does the Pt Use a Wheelchair?: No Wheel 50 ft with 2 turns (QC): 9 Wheel 150 ft (QC): 9 Stair Training Stair Training: Handrails/: 1 handrail #of Steps: 4 1 Step (curb) (QC): 3 4 Steps (QC): 3 12 Steps (QC): 9 Stairs: Pattern: Hops Patient requires Mod assistance with ascending/descending stairs, uses another persons shoulders for support to maintain balance and assist with upward hop. Balance Picking up an Object (QC): 6 Special Test Comments Independent with picking up object with rental car deliverer Exercises Supine Ex: Ankle pumps, Quad Set Supine Reps: 20 Seated Therapy Exercises: Ankle pumps, Long arc quads Seated Reps: 20 Standing: Hamstring curls, Heel/toe raises, 3 way Ex=Flex, Abd, Ext Standing Reps: 15 Treatments LE strengthening, endurance, gait, transfers, balance Assessment Current Status: Good Progress, Fair Progress Patient has adequate strength for functional independence while maintaining NWB status, but needs assist with stairs PT Short Term Goals Short Term Goals Time Frame: November 30, 2020 Sit to lyin Lying to sitting on side of be: 4 Sit to stand: 5 Chair/unt-yu-byjpc transfer: 5 Walk 50 feet with two turns: [address] Mechanic Goals PT Fpc Goals Time Frame: December 14, 2020 Roll Left & Right (QC): 6 Sit to Lying (QC): 6 Lying-Sitting on Side/Bed(QC): 6 Sit to Stand (QC): 6 Chair/Aip-yt-Svjzm Xfer(QC): 6 Toilet Transfer (QC): 6 Car Transfer (QC): 6 Does the Patient Walk: Yes Walk 10 feet (QC): 6 Walk 50ft with 2 Turns (QC): 6 Walk 150 ft (QC): 6 Walking 10ft on Uneven Surface: 6 1 Step (curb) (QC): 6 4 Steps (QC): 6 12 Steps (QC): 88 Picking up an Object (QC): 88 Wheel 50 feet with 2 turns (QC: 6 Wheel 150 feet: 6 PT Plan Problem List Problem List: Activity Tolerance, Functional Strength, Safety, Balance, Gait, Transfer, Bed Mobility, ROM Treatment/Plan Treatment Plan: Continue Plan of Care Treatment Plan: Bed Mobility, Education, Functional Activity El, Functional Strength, Group Therapy, Gait, Safety, Therapeutic Exercise, Transfers Treatment Duration: December 14, 2020 Frequency: At least 5 of 7 days/Wk (IRF) Estimated Hrs Per Day: 1.5 hours per day Patient and/or Family Agrees t: Yes Safety Risks/Education Patient Education: Gait Training, Transfer Techniques, Steps, Correct Positioning, W/C Management, Safety Issues Teaching Recipient: Patient Teaching Methods: Demonstration, Discussion Response to Teaching: Verbalize Understanding, Return Demonstration Time/GCodes Time In: 1100 Time Out: 1200 Total Billed Treatment Time: 60 Total Billed Treatment 1 visit: FA: 20' EX x3: 40' RENUKA PASCUAL PT November 28, 2020 11:58
--- NOTE | 2020-11-28 14:21 | Physical Therapy Daily Note ---
PT Daily Note-Current Subjective Patient seated upright pre tx, consents to therapy, reports 4/10 pain in hip. Appearance Patient seated upright in chair, with call button within reach and tray table n earby. All needs met. Mental Status Patient Orientation: Person, Place, MR, Time Transfers SCALE: Activities may be completed with or without assistive devices. 7-Ydrfwaaopt-vdlpfmd completes the activity by him/herself with no assistance from a helper. 5-Set-up or Clean-up Assistance-helper sets up or cleans up; patient completes activity. [place] assists only prior to or following the activity. 4-Supervision or Touching Assistance-helper provides verbal cues and/or touching/steadying and/or contact guard assistance as patient completes activity. Assistance may be provided throughout the activity or intermittently. 3-Partial/Moderate Assistance-helper does LESS THAN HALF the effort. [place] lifts, holds or supports trunk or limbs, but provides less than half the effort. 2-Substantial/Maximal Assistance-helper does MORE THAN HALF the effort. [place] lifts or holds trunk or limbs and provides more than half the effort. 1-Ocmkfbjjs-kekyai does ALL the effort. Patient does none of the effort to complete the activity. Or, the assistance of 2 or more helpers is required for the patient to complete the activity. If activity was not attempted, code reason: 7-Patient Refused. 9-Not Applicable-not attempted and the patient did not perform the activity before the current illness, exacerbation or injury. 10-Not Attempted due to Environmental Limitations-(lack of equipment, weather restraints, etc.). 88-Not Attempted due to Medical Conditions or Safety Concerns. Sit to Stand (QC): 6 Chair/Bby-ow-Fcahv Xfer(QC): 6 Weight Bearing Right Lower Extremity: Right Non Weight Bearing Left Lower Extremity: Left Full Weight Bearing Gait Training Does the Patient Walk?: Yes Distance: 150' x2 Walk 10 feet (QC): 6 Walk 50 ft with 2 Turns(QC): 6 Walk 150 ft (QC): 6 Gait Assistive Device: FWW Patient is able to ambulate while maintaining NWB status. Slow but steady ambulation. Exercises NuStep Minutes: 10 NuStep Workload: 8 Treatments LE strengthening, endurance, transfers, gait Assessment Current Status: Fair Progress Patient demonstrates good endurance with gait PT Short Term Goals Short Term Goals Time Frame: November 30, 2020 Sit to lyin Lying to sitting on side of be: 4 Sit to stand: 5 Chair/grw-dg-flxxr transfer: 5 Walk 50 feet with two turns: 4 PT Supervisor Beam Department Goals Senior Care Goals PT Senior Care Goals Time Frame: December 14, 2020 Roll Left & Right (QC): 6 Sit to Lying (QC): 6 Lying-Sitting on Side/Bed(QC): 6 Sit to Stand (QC): 6 Chair/Gmg-qm-Xomru Xfer(QC): 6 Toilet Transfer (QC): 6 Car Transfer (QC): 6 Does the Patient Walk: Yes Walk 10 feet (QC): 6 Walk 50ft with 2 Turns (QC): 6 Walk 150 ft (QC): 6 Walking 10ft on Uneven Surface: 6 1 Step (curb) (QC): 6 4 Steps (QC): 6 12 Steps (QC): 88 Picking up an Object (QC): 88 Wheel 50 feet with 2 turns (QC: 6 Wheel 150 feet: 6 PT Plan Problem List Problem List: Activity Tolerance, Functional Strength, Safety, Balance, Gait, Transfer, Bed Mobility, ROM Treatment/Plan Treatment Plan: Continue Plan of Care Treatment Plan: Bed Mobility, Education, Functional Activity El, Functional Strength, Group Therapy, Gait, Safety, Therapeutic Exercise, Transfers Treatment Duration: December 14, 2020 Frequency: At least 5 of 7 days/Wk (IRF) Estimated Hrs Per Day: 1.5 hours per day Patient and/or Family Agrees t: Yes Safety Risks/Education Patient Education: Gait Training, Transfer Techniques, Correct Positioning, Safety Issues Teaching Recipient: Patient Teaching Methods: Demonstration, Discussion Response to Teaching: Verbalize Understanding, Return Demonstration Time/GCodes Time In: 1400 Time Out: 1430 Total Billed Treatment Time: 30 Total Billed Treatment 1 visit: FA: 20' EX: 10' RENUKA PASCUAL PT November 28, 2020 14:21
[2020-11-28] MEDS: ENOXAPARIN 40 MG/0.4 ML (LOVENOX) SYR SC SCH (15:32)
[2020-11-28 19:53] VITALS: BP 150/53
--- NOTE | 2020-11-29 05:01 | Discharge Summary ---
Diagnosis/Chief Complaint Date of Admission November 23, 2020 at 13:00 Date of Discharge Discharge Date: November 29, 2020 Discharge Diagnosis Assessment: s/p right hip fracture Developmental delay HTN HLP Plan: Pain control Monitor closely IRF protocol 11/24/20: Monitor pain IRF protocol 11/25/2020: IRF protocol Monitor pain 11/26/20: Monitor BP Pain control 11/27/20: Monitor closely Labs due in morning 11/28/20: Discharge tomorrow (1) Hip fracture, right Status: Acute Qualifiers: Qualified Codes: S72.001A - Fracture of unspecified part of neck of right femur, initial encounter for closed fracture Discharge Summary Discharge Physical Examination Allergies: Coded Allergies: No Known Drug Allergies (Unverified , 04/03/10) Vitals & I&Os Vital Signs Date Time Temp Pulse Resp B/P (MAP) Pulse Ox O2 Delivery O2 Flow Rate FiO2 11/29/20 15:58 35.4 82 14 135/71 95 Room Air General Appearance: Alert, Oriented X3, Cooperative Respiratory: Clear to Auscultation Cardiovascular: Regular Rate Neuro: Normal Gait, Normal Speech, Strength at 5/ X4 Ext Psych/Mental Status: Mental Status NL Hospital Course Was the Problem List Reviewed?: Yes Hospital course: Pt had a short hospital course, but he was admitted for left hip fracture and because of his intellectual and developmental delay he was in need of aggressive PT and OT in order to make a safe discharge plan, he did require a walker at discharge, pain medication was sent into the pharmacy, bowel function returned back to normal and he was able to participate in all therapies in order to be successful at discharge. Labs (last 24 hrs) Laboratory Tests 11/24/20 06:41: White Blood Count 7.1, Red Blood Count 4.86, Hemoglobin 14.9, Hematocrit 46, Mean Corpuscular Volume 95, Mean Corpuscular Hemoglobin 31, Mean Corpuscular Hemoglobin Concent 32, Red Cell Distribution Width 13.9, Platelet Count 216, Mean Platelet Volume 12.2, Immature Granulocyte % (Auto) 1, Neutrophils (%) (Auto) 65, Lymphocytes (%) (Auto) 20, Monocytes (%) (Auto) 8, Eosinophils (%) (Auto) 6, Basophils (%) (Auto) 1, Neutrophils # (Auto) 4.6, Lymphocytes # (Auto) 1.4, Monocytes # (Auto) 0.6, Eosinophils # (Auto) 0.4H, Basophils # (Auto) 0.0, Immature Granulocyte # (Auto) 0.0, Sodium Level 142, Potassium Level 3.8, Chlor jeane Level 102, Carbon Dioxide Level 33H, Anion Gap 7, Blood Urea Nitrogen 16, Creatinine 0.86, Estimat Glomerular Filtration Rate > 60, BUN/Creatinine Ratio 19, Glucose Level 109H, Calcium Level 9.7, Corrected Calcium 9.7, Total Bilirubin 0.8, Aspartate Amino Transf (AST/SGOT) 65H, Alanine Aminotransferase (ALT/SGPT) 99H, Alkaline Phosphatase 101, Total Protein 7.3, Albumin 4.0 11/28/20 05:17: White Blood Count 5.8, Red Blood Count 4.39, Hemoglobin 13.4, Hematocrit 41, Mean Corpuscular Volume 93, Mean Corpuscular Hemoglobin 31, Mean Corpuscular Hemoglobin Concent 33, Red Cell Distribution Width 13.6, Platelet Count 254, Mean Platelet Volume 11.9, Immature Granulocyte % (Auto) 1, Neutrophils (%) (Auto) 50, Lymphocytes (%) (Auto) 37, Monocytes (%) (Auto) 8, Eosinophils (%) (Auto) 4, Basophils (%) (Auto) 1, Neutrophils # (Auto) 2.9, Lymphocytes # (Auto) 2.1, Monocytes # (Auto) 0.5, Eosinophils # (Auto) 0.2, Basophils # (Auto) 0.0, Immature Granulocyte # (Auto) 0.1, Sodium Level 140, Potassium Level 4.1, Chloride Level 105, Carbon Dioxide Level 24, Anion Gap 11, Blood Urea Nitrogen 17, Creatinine 0.83, Estimat Glomerular Filtration Rate > 60, BUN/Creatinine Rat io 20, Glucose Level 95, Calcium Level 9.2, Corrected Calcium 9.5, Total Bilirubin 0.5, Aspartate Amino Transf (AST/SGOT) 55H, Alanine Aminotransferase (ALT/SGPT) 102H, Alkaline Phosphatase 82, Total Protein 6.5, Albumin 3.6 Pending Labs Laboratory Tests 11/24/20 06:41: White Blood Count 7.1, Red Blood Count 4.86, Hemoglobin 14.9, Hematocrit 46, Mean Corpuscular Volume 95, Mean Corpuscular Hemoglobin 31, Mean Corpuscular Hem oglobin Concent 32, Red Cell Distribution Width 13.9, Platelet Count 216, Mean Platelet Volume 12.2, Immature Granulocyte % (Auto) 1, Neutrophils (%) (Auto) 65, Lymphocytes (%) (Auto) 20, Monocytes (%) (Auto) 8, Eosinophils (%) (Auto) 6, Basophils (%) (Auto) 1, Neutrophils # (Auto) 4.6, Lymphocytes # (Auto) 1.4, Monocytes # (Auto) 0.6, Eosinophils # (Auto) 0.4, Basophils # (Auto) 0.0, Immature Granulocyte # (Auto) 0.0, Sodium Level 142, Potassium Level 3.8, Chloride Level 102, Carbon Dioxide Level 33, Anion Gap 7, Blood Urea Nitrogen 16, Creatinine 0.86, Estimat Glomerular Filtration Rate > 60, BUN/Creatinine Ratio 19, Glucose Level 109, Calcium Level 9.7, Corrected Calcium 9.7, Total Bilirubin 0.8, Aspartate Amino Transf (AST/SGOT) 65, Alanine Aminotransferase (ALT/SGPT) 99, Alkaline Phosphatase 101, Total Protein 7.3, Albumin 4.0 11/28/20 05:17: White Blood Count 5.8, Red Blood Count 4.39, Hemoglobin 13.4, Hematocrit 41, Mean Corpuscular Volume 93, Mean Corpuscular Hemoglobin 31, Mean Corpuscular Hemoglobin Concent 33, Red Cell Distribution Width 13.6, Platelet Count 254, Mean Platelet Volume 11.9, Immature Granulocyte % (Auto) 1, Neutrophils (%) (Auto) 50, Lymphocytes (%) (Auto) 37, Monocytes (%) (Auto) 8, Eosinophils (%) (Auto) 4, Basophils (%) (Auto) 1, Neutrophils # (Auto) 2.9, Lymphocytes # (Auto) 2.1, Monocytes # (Auto) 0.5, Eosinophils # (Auto) 0.2, Basophils # (Auto) 0.0, Immature Granulocyte # (Auto) 0.1, Sodium Level 140, Potassium Level 4.1, Chloride Level 105, Carbon Dioxide Level 24, Anion Gap 11, Blood Urea Nitrogen 17, Creatinine 0.83, Estimat Glomerular Filtration Rate > 60, BUN/Creatinine Ratio 20, Glucose Level 95, Calcium Level 9.2, Corrected Calcium 9.5, Total Bilirubin 0.5, Aspartate Amino Transf (AST/SGOT) 55, Alanine Aminotransferase (ALT/SGPT) 102, Alkaline Phosphatase 82, Total Protein 6.5, Albumin 3.6 Discharge Home Medications: Active Scripts Active HYDROcodone/APAP 7.5/325 TAB (Acetaminophen/Hydrocodone Bitart) 1 Ea Tablet 1-2 Ea PO Q4H PRN Aspirin EC (Aspirin) 325 Mg Tablet.dr 325 Mg PO DAILY Lisinopril 10 Mg Tablet 10 Mg PO DAILY Instructions to patient/family Please see electronic discharge instructions given to patient. Diagnosis/Problems Diagnosis/Problems (1) Hip fracture, right Status: Acute Qualifiers: Qualified Codes: S72.001A - Fracture of unspecified part of neck of right fe mur, initial encounter for closed fracture AUGUSTINE CARLIN DO November 29, 2020 05:01
[2020-11-29 08:00] VITALS: BP 135/71
--- NOTE | 2020-11-29 08:03 | Therapy Team Discharge Summary ---
Therapy Discharge Summary Discharge Recommendations Date of Discharge Physical Therapy Patient came to rehab following a right hip fx. Upon evaluation patient performed bed mobility and supine <-> sit with min assist, sit <-> stand and transfers with CGA, car transfer min assist, ambulated 22' with a rolling walker with CGA, and propelled a manual WC 150' with independence. Patient has been performing bed mobility and transfer training, balance and endurance training, functional strengthening, stair training,gait training, and education. Patient has made good progress and has met all of his core driller helper goals except for stairs. Now, patient performs bed mobility and transfers with independence, independent with car transfer, ambulates 150' with a rolling walker with independence (including 50' with at least 2 turns of 90 degrees and 10' over an uneven surface), can leaf size picker an object from the floor with a research investigator with independence, and can go up and down 4 steps using 1 handrail and assist from another person with min/mod assist. Patient is discharging from this facility today and will be discharged from PT at this time. Occupational Therapy Decreased Activ Tolerance, Impaired I ADL's PT Real Estate Management Specialist Goals Real Estate Management Specialist Goals PT Real Estate Management Specialist Goals Time Frame: December 14, 2020 Roll Left to Right (QC): 6 Sit to Lying (QC): 6 Lying-Sitting on Side/Bed(QC): 6 Sit to Stand (QC): 6 Chair/Tdn-mj-Kqllm Xfer(QC): 6 Car Transfer (QC): 6 Does the Patient Walk: Yes Walk 10 feet (QC): 6 Walk 10ft-Uneven Surface(QC): 6 Walk 50ft with 2 Turns (QC): 6 Walk 150 ft (QC): 6 Wheel 50 feet with 2 turns (QC: 6 1 Step (curb) (QC): 6 4 Steps (QC): 6 12 Steps (QC): 88 Picking up an Object (QC): 88 OT Mcc Goals Real Estate Management Specialist Goals Time Frame: December 09, 2020 Eating (QC): 6 (met) Oral Hygiene (QC): 6 (met) Shower/Bathe Self (QC): 6 (not met, set up) Upper Body Dressing (QC): 6 (met) Lower Body Dressing (QC): 6 (met) On/Off Footwear (QC): 6 (met) Toileting Hygiene (QC): 6 (met) Toilet/Commode Transfer (QC): 6 Additional Goals: 1-Demonstrate ADL Tasks, 2-Verbalize Understanding, 3-ImproveStrength/El 1=Demonstrate adherence to instructed precautions during ADL tasks. 2=Patient will verbalize/demonstrate understanding of assistive devices/modifications for ADL. 3=Patient will improve strength/tolerance for activity to enable patient to perform ADL's. RENUKA PASCUAL PT November 29, 2020 08:03
[2020-11-29] MEDS: polyethylene glycoL POWDER 17 GM (MIRALAX) PACK PO SCH (09:17)
[2020-11-29] MEDS: ASPIRIN E.C. 325 MG (ECOTRIN) TABLET PO SCH (09:36)
[2020-11-29] MEDS: HYDROcodone/APAP 7.5 MG/325 MG (LORTAB, LORCET PLUS) TABLET PO PRN (09:36)
[2020-11-29] MEDS: lisINopril 10 MG (PRINIVIL) TABLET PO SCH (09:36)
[2020-11-29] MEDS: amLODIPine 2.5MG (NORVASC) TAB PO SCH (09:36)
[2020-11-29 15:58] VITALS: BP 135/71
--- NOTE | 2020-11-30 14:35 | Therapy Team Discharge Summary ---
Therapy Discharge Summary Discharge Recommendations Date of Discharge November 29, 2020 at 14:40 Therapy D/C Recommendations: Home w/ Family Support Occupational Therapy Pt. seen by Occupational therapy to increase overall strength and independence with daily tasks. Pt. met most goals, but did require set up assistance for shower at discharge. Pt. Mod I with all other tasks, including dressing, toileting, oral care, and feeding. Pt. discharged home alone, with family support as needed. No further OT warranted at this time. Decreased Activ Tolerance, Impaired I ADL's PT Spud Grader Goals Senior Living Goals PT Spud Grader Goals Time Frame: December 14, 2020 Roll Left to Right (QC): 6 Sit to Lying (QC): 6 Lying-Sitting on Side/Bed(QC): 6 Sit to Stand (QC): 6 Chair/Tdy-dx-Orlre Xfer(QC): 6 Car Transfer (QC): 6 Does the Patient Walk: Yes Walk 10 feet (QC): 6 Walk 10ft-Uneven Surface(QC): 6 Walk 50ft with 2 Turns (QC): 6 Walk 150 ft (QC): 6 Wheel 50 feet with 2 turns (QC: 6 1 Step (curb) (QC): 6 4 Steps (QC): 6 12 Steps (QC): 88 Picking up an Object (QC): 88 OT Senior Living Goals Spud Grader Goals Time Frame: December 09, 2020 Eating (QC): 6 (met) Oral Hygiene (QC): 6 (met) Shower/Bathe Self (QC): 6 (not met, set up) Upper Body Dressing (QC): 6 (met) Lower Body Dressing (QC): 6 (met) On/Off Footwear (QC): 6 (met) Toileting Hygiene (QC): 6 (met) Toilet/Commode Transfer (QC): 6 Additional Goals: 1-Demonstrate ADL Tasks, 2-Verbalize Understanding, 3-Impr oveStrength/El 1=Demonstrate adherence to instructed precautions during ADL tasks. 2=Patient will verbalize/demonstrate understanding of assistive devices/modifications for ADL. 3=Patient will improve strength/tolerance for activity to enable patient to perform ADL's. STEVIE CERDA OT November 30, 2020 14:35
== END 2020-11-29 14:40 | disposition home health service (06) | DRG 561 ==
PROVIDERS: ADMIT Internal Medicine; ATTEND Internal Medicine
DX: S72.001D Fracture of unspecified part of neck of right femur, subsequent encounter for closed fracture with routine healing (principal); I10 Essential (primary) hypertension; F79 Unspecified intellectual disabilities; F17.210 Nicotine dependence, cigarettes, uncomplicated; F90.9 Attention-deficit hyperactivity disorder, unspecified type; F32.9 Major depressive disorder, single episode, unspecified; E78.5 Hyperlipidemia, unspecified; Z79.82 Long term (current) use of aspirin; V19.9XXD Pedal cyclist (driver) (passenger) injured in unspecified traffic accident, subsequent encounter
CPT/HCPCS: 36415; 80053; 85025

== ENCOUNTER 2021-12-05 10:35 | Emergency (ER) | payer MEDICARE, MEDICAID ==
[~2021-12-05] VITALS: Ht 172.7 cm; Wt 70.3 kg
[~2021-12-05 10:35] MED LIST changes: -ACETAMINOPHEN 325 MG TABLET PO PRN; -BISACODYL 10 MG SUPP (DULCOLAX) PR PRN; -CALCIUM CARBONATE 500 MG (TUMS) TAB.CHEW PO PRN; +CYCL10TA25 PO; -DOCUSATE SODIUM 100 MG (COLACE) CAP PO PRN; -ENOXAPARIN 40 MG/0.4 ML (LOVENOX) SYR SC SCH; -FLEET ENEMA ADULT 1 EA BTL PR PRN; +HYDR-34 PO; -HYDROcodone/APAP 5 MG/325 MG (LORTAB) TAB PO PRN; -LACTULOSE SYRUP 10GM/15ML (ENULOSE) 30ML UDC PO PRN; +LISI10TA25 PO; -LOPERAMIDE 2 MG (IMODIUM) TABLET PO PRN; -MELATONIN 3 MG TABLET PO PRN; -ONDANSETRON 4 MG (ZOFRAN) ORAL DISSOLVE TAB PO PRN; -diphenhydrAMINE 25 MG TAB (BENADRYL) PO PRN; -guaiFENesin/CODEINE (ROBITUSSIN AC) 10ML UDC PO PRN
--- NOTE | 2021-12-05 11:09 | ED General ---
General Chief Complaint: General Problems/Pain Stated Complaint: DEHYDRATION Nursing Triage Note: "im dehydrated, i'm physically , i'm exhausted" started at 0930 this am. states feels dizzy and light headed. states has felt this way before 2 years ago, and was dehydrated. Source of Information: Patient Exam Limitations: No Limitations (PARVIZ BE APRN) History of Present Illness Date Seen by Provider: December 05, 2021 Time Seen by Provider: 10:56 Initial Comments This is a well-appearing 41-year-old male who presented to the ER with "not feeling right" this morning. States that he woke around 0930 this morning and felt a little dizzy and lightheaded. States that he had the same sensation 2 years ago when he was dehydrated. States that he has not been drinking fluids well and noted his urine appeared dark this morning. He denies fever, chills, cough, shortness of breath, chest pain, diaphoresis, nausea, vomiting, abdominal pain, dysuria, hematuria. No known ill contacts. Also notes that he is supposed be taking antihypertensives for his blood pressure however he is noncompliant with this. He is noted to have elevated BP. (PARVIZ BE BEHAVIORAL HEALTH CONSULTANT) Allergies and Home Medications Allergies Coded Allergies: No Known Drug Allergies (Unverified , 04/03/10) Patient Home Medication List Home Medication List Reviewed: Yes (PARVIZ BE APRN) Aspirin (Aspirin EC) 325 Mg Tablet.dr, 325 MG PO DAILY Prescribed by: AUGUSTINE CARLIN on 11/28/20943 Hydrocodone Bit/Acetaminophen (HYDROcodone/APAP 7.5/325 TAB) 1 Ea Tablet, 1-2 EA PO Q4H PRN for PAIN-MODERATE (5-7) Prescribed by: AUGUSTINE CARLIN on 11/28/20943 Lisinopril (Lisinopril) 10 Mg Tablet, 10 MG PO DAILY Prescribed by: AUGUSTINE CARLIN on 11/28/20943 Review of Systems Review of Systems Constitutional: see HPI EENTM: No blurred vision, No double vision, No vision loss Respiratory: no symptoms reported Cardiovascular: no symptoms reported Gastrointestinal: no symptoms reported Genitourinary: see HPI; No dysuria, No frequency, No hematuria Musculoskeletal: no symptoms reported Skin: no symptoms reported Psychiatric/Neurological: No Symptoms Reported Hematologic/Lymphatic: No Symptoms Reported Immunological/Allergic: no symptoms reported (PARVIZ BE APRN) All Other Systems Reviewed Negative Unless Noted: Yes (PARVIZ BE APRN) Past Rajyxag-Gvgpam-Votdbu Hx Patient Social History Tobacco Use?: No Use of E-Cig and/or Vaping dev: No Substance use?: No Alcohol Use?: No Pt feels they are or have been: No (PARVIZ BE APRN) Immunizations Up To Date Tetanus Booster (TDap): Unknown PED Vaccines UTD: Yes (PARVIZ BE APRN) Seasonal Allergies Seasonal Allergies: No (PARVIZ BE APRN) Past Medical History Surgeries: Yes (? CIRCUMCISION ? 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 oz. 72.969118rk; 23.00 BMI Method:Stated General Appearance: No Apparent Distress, WD/WN Eyes: Bilateral Eye Normal Inspection, Bilateral Eye EOMI HEENT: PERRL/EOMI, Normal ENT Inspection, Pharynx Normal, Moist Mucous Membranes Neck: Full Range of Motion, Normal Inspection, Non Tender, Supple Respiratory: Lungs Clear, Normal Breath Sounds, No Accessory Muscle Use, No Respiratory Distress Cardiovascular: Regular Rate, Rhythm, No Edema, No Murmur, Normal Peripheral Pulses Gastrointestinal: Normal Bowel Sounds, Non Tender, Soft Back: Normal Inspection Extremity: Normal Inspection, Normal Range of Motion Neurologic/Psychiatric: Alert, Oriented x3, No Motor/Sensory Deficits, Normal Mood/Affect Skin: Normal Color, Warm/Dry Lymphatic: No Adenopathy (PARVIZ BE APRN) Progress/Results/Core Measures Suspected Sepsis SIRS Temperature: Pulse: 66 Respiratory Rate: 16 Laboratory Tests 12/05/21 11:00: White Blood Count 5.5 Blood Pressure 183 /110 Mean: 134 Laboratory Tests 12/05/21 11:00: Creatinine 0.84, Platelet Count 201, Total Bilirubin 0.6 (PARVIZ BE APRN) Results/Orders Lab Results Laboratory Tests Test 12/05/21 11:00 12/05/21 12:28 Range/Units White Blood Count 5.5 4.3-11.0 10^3/uL Red Blood Count 4.96 4.30-5.52 10^6/uL Hemoglobin 15.5 13.3-17.7 g/dL Hematocrit 46 40-54 % Mean Corpuscular Volume 93 80-99 fL Mean Corpuscular Hemoglobin 31 25-34 pg Mean Corpuscular Hemoglobin Concent 34 32-36 g/dL Red Cell Distribution Width 13.3 10.0-14.5 % Platelet Count 201 130-400 10^3/uL Mean Platelet Volume 12.5 H 9.0-12.2 fL Immature Granulocyte % (Auto) 0 % Neutrophils (%) (Auto) 63 42-75 % Lymphocytes (%) (Auto) 27 12-44 % Monocytes (%) (Auto) 8 0-12 % Eosinophils (%) (Auto) 1 0-10 % Basophils (%) (Auto) 1 0-10 % Neutrophils # (Auto) 3.5 1.8-7.8 10^3/uL Lymphocytes # (Auto) 1.5 1.0-4.0 10^3/uL Monocytes # (Auto) 0.4 0.0-1.0 10^3/uL Eosinophils # (Auto) 0.1 0.0-0.3 10^3/uL Basophils # (Auto) 0.0 0.0-0.1 10^3/uL Immature Granulocyte # (Auto) 0.0 0.0-0.1 10^3/uL Sodium Level 140 135-145 MMOL/L Potassium Level 4.0 3.6-5.0 MMOL/L Chloride Level 104 98-107 MMOL/L Carbon Dioxide Level 27 21-32 MMOL/L Anion Gap 9 5-14 MMOL/L Blood Urea Nitrogen 13 7-18 MG/DL Creatinine 0.84 0.60-1.30 MG/DL Estimat Glomerular Filtration Rate 112 BUN/Creatinine Ratio 15 Glucose Level 111 H 70-105 MG/DL Calcium Level 9.7 8.5-10.1 MG/DL Corrected Calcium 9.4 8.5-10.1 MG/DL Total Bilirubin 0.6 0.1-1.0 MG/DL Aspartate Amino Transf (AST/SGOT) 24 5-34 U/L Alanine Aminotransferase (ALT/SGPT) 30 0-55 U/L Alkaline Phosphatase 72 40-136 U/L Total Protein 7.5 6.4-8.2 GM/DL Albumin 4.4 3.2-4.5 GM/DL Urine Color YELLOW Urine Clarity CLEAR Urine pH 7.5 5-9 Urine Specific [place] 1.015 L 1.016-1.022 Urine Protein NEGATIVE NEGATIVE Urine Glucose (UA) NEGATIVE NEGATIVE Urine Ketones NEGATIVE NEGATIVE Urine Nitrite NEGATIVE NEGATIVE Urine Bilirubin NEGATIVE NEGATIVE Urine Urobilinogen 0.2 < = 1.0 MG/DL Urine Leukocyte Esterase NEGATIVE NEGATIVE Urine RBC (Auto) NEGATIVE NEGATIVE Urine RBC RARE /HPF Urine WBC RARE /HPF Urine Squamous Epithelial Cells RARE /HPF Urine Crystals NONE /LPF Urine Bacteria NEGATIVE /HPF Urine Casts NONE /LPF Urine Mucus NEGATIVE /LPF Urine Culture Indicated NO (DOMENICA NEGRON MD) Vital Signs/I&O 12/05/21 12/05/21 10:45 12:45 Temp 35.9 Pulse 66 66 Resp 16 16 B/P (MAP) 183/110 (134) 149/96 Pulse Ox 96 96 O2 Delivery Room Air Room Air (DOMENICA NEGRON MD) Vital Signs/I&O Capillary Refill : Less Than 3 Seconds (PARVIZ BE APRN) Blood Pressure Mean: 134 Progress Note : Progress Note Patient examined and in no acute distress. No elevation in temperature, he is hypertensive but he is noncompliant with his antihypertensive medication. Orders placed for basic labs and urine analysis. We will go ahead and give bolus of fluids while waiting lab results. Resting comfortably in exam room, laughing and joking with staff. No pain at this time. Given one liter IVF and reports symptoms resolved. Able to urinate. Strongly encouraged to take his antihypertensives as directed so he does not return with heart attack or stroke. Verbalized understanding. States that he will take his antihypertensives once he goes home. Discharge plan of care reviewed and he is agreeable with plan. (PARVIZ BE APRN) Departure Impression Primary Impression: Dizziness Additional Impression: Hypertension Disposition: 01 HOME, SELF-CARE Condition: Improved Departure-Patient Inst. Decision time for Depature: 12:12 (PARVIZ BE APRN) Referrals: MYA MOREL MD (PCP/Family) Primary Care Physician Patient Instructions: Dehydration, Adult (DC) Add. Discharge Instructions: Plan: 1. Drink plenty of fluids to keep your urine pale yellow. 2. Avoid staying out in the heat for extended periods of time if you are outside working make sure that you are continue to drink plenty of fluids. 3. Return for any new, concerning, or worsening symptoms. All discharge instructions reviewed with patient and/or family. Voiced understanding. ATTENDING PHYSICIAN NOTE: I was physically present as attending physician in the emergency department during the care of this patient, but I was not directly involved in the decision making or delivery of care for this patient. (DOMENICA NEGRON MD) PARVIZ BE APRN December 05, 2021 11:09 DOMENICA NEGRON MD December 06, 2021 07:23
[2021-12-05] MEDS ORDERED: NS IV 1000 ML 1,000 ML IV ONE (11:15)
[2021-12-05 11:55] LABS: ALBUMIN 4.4 GM/DL (3.2-4.5); BASOPHILS % (AUTO) 1 % (0-10); EOSINOPHILS # (AUTO) 0.1 10^3/uL (0.0-0.3); EOSINOPHILS % (AUTO) 1 % (0-10); HEMATOCRIT 46 % (40-54); HEMOGLOBIN 15.5 g/dL (13.3-17.7); LYMPHOCYTES # (AUTO) 1.5 10^3/uL (1.0-4.0); LYMPHOCYTES % (AUTO) 27 % (12-44); MEAN CORPUSCULAR HEMOGLOBIN 31 pg (25-34); MEAN CORPUSCULAR HGB CONC 34 g/dL (32-36); MEAN CORPUSCULAR VOLUME 93 fL (80-99); MEAN PLATELET VOLUME 12.5 fL (9.0-12.2); MONOCYTES # (AUTO) 0.4 10^3/uL (0.0-1.0); MONOCYTES % (AUTO) 8 % (0-12); NEUTROPHILS # (AUTO) 3.5 10^3/uL (1.8-7.8); NEUTROPHILS % (AUTO) 63 % (42-75); PLATELET COUNT 201 10^3/uL (130-400); WHITE BLOOD COUNT 5.5 10^3/uL (4.3-11.0)
[2021-12-05 11:57] LABS: CALCIUM 9.7 MG/DL (8.5-10.1)
[2021-12-05 11:58] LABS: TOTAL PROTEIN 7.5 GM/DL (6.4-8.2)
[2021-12-05 12:00] LABS: BILIRUBIN,TOTAL 0.6 MG/DL (0.1-1.0)
[2021-12-05 12:02] LABS: CREATININE SERUM 0.84 MG/DL (0.60-1.30)
[2021-12-05 12:43] LABS: BILIRUBIN,URINE NEGATIVE (NEGATIVE); CLARITY,URINE CLEAR; COLOR,URINE YELLOW; GLUCOSE, URINE (UA) NEGATIVE (NEGATIVE); KETONES,URINE NEGATIVE (NEGATIVE); LEUKOCYTE ESTERASE ,URINE NEGATIVE (NEGATIVE); NITRITE,URINE NEGATIVE (NEGATIVE); PH,URINE 7.5 (5-9); PROTEIN,URINE NEGATIVE (NEGATIVE)
[2021-12-05 12:45] VITALS: BP 149/96
[2021-12-05 12:52] LABS: BACTERIA,URINE NEGATIVE /HPF; RBC,URINE RARE /HPF; SQUAMOUS EPITHELIAL CELL,UR RARE /HPF; WBC,URINE RARE /HPF
== END 2021-12-05 12:40 | disposition home or self-care (01) ==
LOC: EDUNIT# 10:35 → ER 10:38
DX: R42 Dizziness and giddiness (principal); I10 Essential (primary) hypertension; Z91.14 Patient's other noncompliance with medication regimen
CPT/HCPCS: 36415; 80053; 81000; 85025

== ENCOUNTER 2022-01-08 00:15 | Emergency (ER) | payer MEDICARE, MEDICAID ==
[~2022-01-08] VITALS: Ht 172.7 cm; Wt 70.3 kg
[2022-01-08] MEDS ORDERED: MELO7.5T46 (00:27)
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
[2022-01-08 01:21] VITALS: BP 165/92
--- NOTE | 2022-01-08 06:44 | Diagnostic Imaging Report ---
HISTORY: Right hip pain COMPARISON: 12/12/2020 TECHNIQUE: 2 views of the right hip FINDINGS: There is internal fixation of the proximal right femur with 3 cephalo-cervical partially threaded screws. No hardware complication is seen. Alignment is normal. The femoral head is well-seated in the acetabulum. IMPRESSION: 1. Stable internal fixation of the right femoral neck with no hardware complication or acute osseous abnormality seen. Dictated by: Dictated on workstation # [id number]
== END 2022-01-08 01:22 | disposition home or self-care (01) ==
LOC: EDUNIT# 00:15 → ER 00:19
DX: S70.01XA Contusion of right hip, initial encounter (principal); Z96.641 Presence of right artificial hip joint; V48.5XXA Car driver injured in noncollision transport accident in traffic accident, initial encounter; Y92.410 Unspecified street and highway as the place of occurrence of the external cause
CPT/HCPCS: 73502

== ENCOUNTER 2022-07-05 03:17 | Emergency (ER) | payer MEDICARE, MEDICAID ==
[~2022-07-05] VITALS: Ht 172.7 cm; Wt 75.0 kg
[~2022-07-05 03:17] MED LIST changes: +MELO7.5T46
[2022-07-05 03:29] VITALS: BP 176/100
[2022-07-05] MEDS ORDERED: ONDANSETRON 4 MG (ZOFRAN) ORAL DISSOLVE TAB PO STA (03:35)
[2022-07-05] MEDS ORDERED: ONDA8TAB13 SL (03:36)
--- NOTE | 2022-07-05 03:36 | ED GI ---
General Chief Complaint: Abdominal/GI Problems Stated Complaint: VOMITING,SHIVERING Source of Information: Patient Exam Limitations: No Limitations History of Present Illness Date Seen by Provider: Jul 05, 2022 Time Seen by Provider: 03:35 Initial Comments 41-year-old male presents emerged from today for nausea and vomiting. He states he vomited 3 times since 4:00 yesterday afternoon. He is also had some chills. He went to [place] initially but the wait was too long so he came here. No abdominal pain. Was around a family member last week that had the flu. Allergies and Home Medications Allergies Coded Allergies: No Known Drug Allergies (Unverified , 04/03/10) Patient Home Medication List Home Medication List Reviewed: Yes Aspirin (Aspirin EC) 325 Mg Tablet.dr, 325 MG PO DAILY Prescribed by: AUGUSTINE CARLIN on 11/28/2044 Lisinopril (Lisinopril) 10 Mg Tablet, 10 MG PO DAILY Prescribed by: AUGUSTINE CARLIN on 11/28/2044 Meloxicam (Meloxicam) 7.5 Mg Tablet, (Reported) Entered as Reported by: VITA STERN on 01/08/22 0027 Ondansetron (Ondansetron Odt) 8 Mg Tab.rapdis, 8 MG SL Q6H PRN for NAUSEA/VOMITING Prescribed by: KENIA PITTMAN MD on 07/05/22 0336 Review of Systems Review of Systems Constitutional: chills EENTM: No Symptoms Reported Respiratory: No Symptoms Reported Cardiovascular: No Symptoms Reported Gastrointestinal: Nausea, Vomiting Genitourinary: No Symptoms Reported Musculoskeletal: no symptoms reported Skin: no symptoms reported Psychiatric/Neurological: No Symptoms Reported Endocrine: No Symptoms Reported Hematologic/Lymphatic: No Symptoms Reported Past Zepnysz-Forlnx-Ssfftf Hx Immunizations Up To Date Tetanus Booster (TDap): Unknown PED Vaccines UTD: Yes Seasonal Allergies Seasonal Allergies: No Past Medical History Surgery/Hospitalization HX: nose sx, right hip, htn, mr, ch back pain, adhd, depression, psoriasis Surgeries: Yes (? CIRCUMCISION ? 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 oz. [id number]; 23.00 BMI Method:Stated General Appearance: WD/WN, no apparent distress HEENT: normal ENT inspection, pharynx normal Neck: non-tender, full range of motion, supple, normal inspection Respiratory: chest non-tender, lungs clear, normal breath sounds, no respiratory distress, no accessory muscle use Cardiovascular: regular rate, rhythm, no edema, no gallop, no JVD, no murmur Gastrointestinal: normal bowel sounds, non tender, soft, no organomegaly Extremities: normal range of motion, non-tender, normal inspection Back: normal inspection, no CVA tenderness, no vertebral tenderness Neurologic/Psychiatric: alert, oriented x 3 Skin: normal color, warm/dry Lymphatic: no adenopathy Progress/Results/Core Measures Results/Orders My Orders Orders - KENIA PITTMAN DO Ondansetron Oral Dissolve Tab (Zofran (07/05/22 03:35) Departure Communication (Admissions) Patient is hemodynamically stable nontoxic-appearing tolerating p.o. here. Given Zofran and discharged home with prescription for the same. He is round family in the last week with the flu so this is likely what he has. Discussed no indication for testing. We will treat conservatively with Zofran. Discharged in stable condition. Impression Primary Impression: Nausea and vomiting Qualified Codes: R11.2 - Nausea with vomiting, unspecified Disposition: 01 HOME, SELF-CARE Condition: Stable Departure-Patient Inst. Referrals: MYA MOREL MD (PCP/Family) Primary Care Physician Patient Instructions: Nausea and Vomiting, Adult (DC) Add. Discharge Instructions: Take the nausea medicine as prescribed as needed. Increase your fluids at home and rest. Return to the emergency department for any severe concerns. Follow- up with primary doctor for any nonemergent needs. All discharge instructions reviewed with patient and/or family. Voiced understanding. Scripts Ondansetron (Ondansetron Odt) 8 Mg Tab.rapdis 8 MG SL Q6H PRN for NAUSEA/VOMITING for 5 Days, #20 TAB Prov: KENIA PITTMAN DO 07/05/22 KENIA PITTMAN DO Jul 05, 2022 03:36
== END 2022-07-05 03:45 | disposition home or self-care (01) ==
LOC: EDUNIT# 03:17 → ER 03:22
DX: R11.2 Nausea with vomiting, unspecified (principal); Z28.310 Unvaccinated for COVID-19
CPT/HCPCS: 99283